=== PATIENT | female | born 1960 | race Caucasian/White ===

== ENCOUNTER → 2016-06-21 | Outpatient (CLI) | payer BC ==
[~2016-06-21] MED LIST: ALPR1 PO; ASPI1TAB69 PO; ASPI325T PO; AUGM500T7 PO; CENTCHW4 CHEW; CYCL5TAB PO; DULO1CAP2 PO; FURO1TAB62 PO; HYDR-3535 PO; IBUP600T26 PO; MACR100C2 PO; MULT-120 PO; NYST10007 TOPICAL; OXYC1TAB63 PO; OXYGENDME NAS.CANULA; PERC5TAB12 PO; TAB-TAB PO; XANA1TAB2 PO
--- NOTE | 2016-06-21 14:09 | RADRPT ---
EXAM DATE/TIME: 06/21/2016 13:13 [facility] COMPARISON: CHEST SINGLE AP, June 01, 2013, 19:59. INDICATIONS : Evaluate for pneumonia, pneumothorax or communicable disease. Pre op for hysterectomy. MEDICAL HISTORY : Chronic obstructive pulmonary disease. SURGICAL HISTORY : None. ENCOUNTER: Initial ACUITY: 1 day PAIN SCORE: 0/10 LOCATION: Bilateral chest FINDINGS: The heart is normal in size. There are chronic-appearing interstitial changes throughout the pulmonar y parenchyma. These are stable compared to previous dated 06/01/13. The visualized bony structures are intact. CONCLUSION: Chronic appearing interstitial changes. No acute abnormality. Lennox Leon MD on June 21, 2016 at 14:06 Board Certified Radiologist. This report was verified electronically.
--- NOTE | 2016-06-22 13:37 | EKG ---
Date Performed: 06/21/2016 Time Performed: 12:56:54 PTAGE: 55 years EKG: Sinus rhythm NORMAL ECG Compared to prior tracing no significant change DOCTOR: Carlo Castillo Interpretating Date/Time 06/22/2016 13:36:03
== END ==
LOC: CPRE 12:07
PROVIDERS: ATTEND Obstetrics & Gynecology
DX: Z01.810 Encounter for preprocedural cardiovascular examination (principal); Z01.811 Encounter for preprocedural respiratory examination; N81.89 Other female genital prolapse
CPT/HCPCS: 71020; 93005

== ENCOUNTER 2016-06-24 07:28 | Observation (INO) | payer BC ==
--- NOTE | 2016-06-21 14:11 | MH ---
cc: ARIELA RIDER,SAM Alvarez D.O. 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 HISTORY OF PRESENT ILLNESS The patient is a pleasant 55-year-old single white female whom I met approximately 2 weeks ago. She had been a prior patient of the practice. She knew that she had uterine prolapse, but was trying to live with it and continue work on a regular basis. She is 3, para 2, did not deliver large babies but she is a smoker. She is thin, she is fair and does work with heavy lifting. She is a patient of Dr. Castellon. With her back pain she has had MRIs of the spine, pelvis and abdomen. She has been given Lortab by Dr. Castellon. Most of the time she can void completely unless the procidentia is so profound she has to lay down. Her pain is actually at the mons and then runs down her thigh mostly on the right. It started a week ago, got worse with movement and she cannot bend down. Initially I put in a Gellhorn pessary to see if elevation of the uterine procidentia would help with that pain. It greatly increases her comfort without having the uterus hanging out and she can empty her bowels and bladder completely, but she still states that this pain on the right side is still there. I am concerned that she has significant osteoporosis and some pelvic sacrum instability and that her whole pelvic girdle is shifting. I have explained to her that removal of this uterus may not help that pain directly but it is certainly needed in any event. On exam when she is lying down the uterus is entirely outside the body, the cervix and lower uterine segment is cornified, the cervical os is distorted. There is no bleeding. She has had no abnormal Pap smears. Ovaries are not palpable in this circumstance. The bladder comes down considerably and so does the rectum. PAST MEDICAL HISTORY Her other medical conditions are hyperlipidemia and she takes atorvastatin 10 mg a day and she takes hydrocodone 10 mg I believe four times a day and she takes oxycodone 5 mg for breakthrough pain. She has tried tramadol, diclofenac and she does take alprazolam for anxiety. She continues to smoke. FAMILY HISTORY/SOCIAL HISTORY Her family history is essentially noncontributory. She is but has a partner of 15 years. She has occasional caffeine, occasional exercise, her diet is regular. She smokes half-a-pack a day. Her mother had breast cancer and disease of the thyroid. Her father had heart disease. She has never had any STDs that she is aware of. She has had frequent urinary tract infections. REVIEW OF SYSTEMS Otherwise negative. DATA Ultrasound is consistent with the above findings. PHYSICAL EXAMINATION GENERAL: On exam, she is a slim female with dark-lay skin, poor skin turgor, who appears anxious. NECK: She has no thyroid enlargement. LUNGS: Her lungs were clear to auscultation in all guevara. HEART: Her heart rate and rhythm are regular. BREAST: Exam was done not performed. ABDOMEN: Her abdomen is scaphoid. She has no hepatosplenomegaly. No CVA tenderness. No lymphadenopathy and no hernias. She has no CVA tenderness. No tenderness at the sciatic notch. Perineum reveals the uterine procidentia. This was reduced with some difficulty. Her bladder was emptied and a size 3 Gellhorn placed with good positioning. I did not feel ovaries. The bladder has a positive Q-tip test obviously with the urethrovesical angle descending also. The rectocele is moderate and there was no stool in the vault. Her guaiac was negative and she had no hemorrhoids. EXTREMITIES: She had a positive straight leg test on the right. There was no swelling. She had normal deep tendon reflexes and normal pedal pulses. VITAL SIGNS: Her weight is 140 and her blood pressure is 118/78. ALLERGIES She has no allergies. IMPRESSION At this time, this is a young woman, early menopause with uterine procidentia, who at this point would benefit from a TVH, BSO, AP repair and TOT with Solyx. She understands that this may not entirely control her pain which may be some type of pelvic girdle instability but is necessary nonetheless. She is scheduled for and we will follow-up based on her results as needed. MD CINDI Kwan/TLL /1:04 PM /1:40 PM
[~2016-06-24] VITALS: Ht 162.6 cm; Wt 65.0 kg
[~2016-06-24 07:28] MED LIST changes: -ALPR1 PO; -ASPI325T PO; -AUGM500T7 PO; -CENTCHW4 CHEW; -CYCL5TAB PO; -DULO1CAP2 PO; -FURO1TAB62 PO; -IBUP600T26 PO; -MACR100C2 PO; -NYST10007 TOPICAL; -OXYC1TAB63 PO; -OXYGENDME NAS.CANULA; -TAB-TAB PO
[2016-06-24] MEDS ORDERED: METOPROLOL TARTRATE 25 MG TAB PO PRN (08:00)
[2016-06-24] MEDS ORDERED: INSULIN HUMAN REGULAR 1,000 UNITS/10 ML VIAL SQ PRN (08:00)
[2016-06-24] MEDS ORDERED: SODIUM CHLORID 0.9% 500 ML IV PRN (08:00)
[2016-06-24] MEDS ORDERED: LACTATED RINGER'S 1000 ML IV PRN (08:00)
[2016-06-24] MEDS ORDERED: CHLORHEXIDINE GLUCONATE 2 % 1 PACK (2 CLOTHS) TOPICAL PRN (08:00)
[2016-06-24] MEDS ORDERED: POVIDONE IODINE 5% (ANTISEPSIS KIT) 4 APPLICATIONS EACH NARE PRN (08:00)
[2016-06-24] MEDS ORDERED: ceFAZolin INJ 1,000 MG VIAL ONE (08:21)
[2016-06-24] MEDS ORDERED: SODIUM CHLORIDE 0.9% INJ 100 ML ONE (08:22)
[2016-06-24 08:26] VITALS: BP 106/68; PULSE 72; RESP 20; TEMP 97.6; O2SAT 96
[2016-06-24] MEDS ORDERED: BUPIVACAINE/EPINEPHRINE 0.5% PF 10 ML VIAL ONE (09:11)
[2016-06-24] MEDS ORDERED: BUPIVACAINE/EPINEPHRINE 0.25% 50 ML VIAL ONE (09:11)
[2016-06-24] MEDS ORDERED: ESTROGENS CONJUGATED VAG CREA 15 APPL/30 GM TUBE ONE (09:11)
[2016-06-24] MEDS ORDERED: VASOPRESSIN INJ 20 UNITS/ML VIAL ONE (09:11)
[2016-06-24] MEDS ORDERED: ACETAMINOPHEN 1000 MG/100 ML VIAL IV ONE (09:33)
[2016-06-24] MEDS ORDERED: FAMOTIDINE 20 MG/2 ML VIAL ONE (09:33)
[2016-06-24] MEDS ORDERED: MIDAZOLAM HCL 2 MG/2 ML VIAL ONE (09:34)
[2016-06-24] MEDS ORDERED: DEXAMETHASONE SOD PHOS 4 MG/ML VIAL ONE (09:34)
[2016-06-24] MEDS ORDERED: LACTATED RINGER'S 1000 ML INJ 1,000 ML IV ONE (09:40)
[2016-06-24] MEDS ORDERED: NEOSTIGMINE 3 MG/3 ML SYR IV ONE (09:40)
[2016-06-24] MEDS ORDERED: ONDANSETRON HCL 4 MG/2 ML VIAL IV PUSH ONE (09:40)
[2016-06-24] MEDS ORDERED: PROPOFOL 200 MG/20 ML AMP IV ONE (09:40)
--- NOTE | 2016-06-24 11:56 | PD.OP ---
Operative Report Date of Surgery: June 24, 2016 Preoperative Diagnosis: uterine procidentia cystourethrocele mild rectocele Postoperative Diagnosis: same, enterocele Procedure: TVHBSO anterior repair TOT with solyx enterocele obliteration cystoscopy Anesthesia: GET Surgeon: Isabelle Faust Manager [employer]iances(s): [email or web address] Operation and Findings: Isabelle Pollard MD June 24, 2016 11:56
--- NOTE | 2016-06-24 11:59 | HHI.DCPOC ---
Discharge Care Plan Report Symptoms to Your Doctor -Temperate above 100.5 degrees -Redness, of incision or excessive or foul smelling drainage -Unusual pain or calf pain -Increased vaginal bleeding -Painful or difficulty urinating -Feelings of extreme sadness or anxiety after 2 weeks Goals to Promote Your Health * To prevent worsening of your condition and complications * To maintain your health at the optimal level Directions to Meet Your Goals Take your medications as prescribed Follow your dietary instruction Follow activity as directed Ensure plenty of rest for recovery Drink fluids for hydration Keep your appointments as scheduled Take your immunizations and boosters as scheduled If your symptoms worsen call your PCP, if no PCP go to Urgent Care Center or Emergency Room Smoking is Dangerous to Your Health. Avoid second hand smoke Call the 24-hour crisis hotline for domestic abuse at Isabelle Faust MD June 24, 2016 11:59
[2016-06-24] MEDS ORDERED: SODIUM CHLORIDE 0.9% FLUSH 10 ML FLUSH IV FLUSH PRN (12:00)
[2016-06-24] MEDS ORDERED: ONDANSETRON HCL 4 MG/2 ML VIAL IVP PRN (12:00)
[2016-06-24] MEDS ORDERED: ZOLPIDEM TARTRATE 5 MG TAB PO PRN (12:00)
[2016-06-24] MEDS ORDERED: oxyCODONE/ACETAMINOPHEN 5 MG/325 MG TAB PO PRN (12:00)
[2016-06-24] MEDS ORDERED: *morphine SULFATE 8 MG/ML PERIprocedure ONLY ONE (12:14)
[2016-06-24] MEDS: LACTATED RINGER'S 1000 ML INJ 1,000 ML IV SCH ×2 (12:30→21:17)
[2016-06-24] MEDS ORDERED: fentaNYL CITRATE 250 MCG/5 ML AMP ONE (12:35)
[2016-06-24] MEDS ORDERED: DO NOT ADM ANY ANTICOAGULANT DRUGS PRN (13:00)
[2016-06-24] MEDS: KETOROLAC TROMETHAMINE 30 MG/ML (IVP) VIAL IVP PRN (13:23)
[2016-06-24] MEDS: HYDROmorphone HCL PF 1 MG/ML VIAL IVP PRN ×3 (13:26→21:18)
[2016-06-24] MEDS: oxyCODONE/ACETAMINOPHEN 5 MG/325 MG TAB PO PRN ×2 (14:40→19:48)
[2016-06-24 16:11] VITALS: BP 112/69; PULSE 61; RESP 17; TEMP 97.8
[2016-06-24] MEDS ORDERED: ALPRAZolam 1 MG TAB PO ONE (16:45)
[2016-06-24] MEDS: NICOTINE 21 MG/24 HR PATCH T-DERMAL SCH (17:15)
--- NOTE | 2016-06-24 18:18 | HHI.PR ---
Subjective Remarks Doing well, pain is well controlled, eating well. Objective Vital Signs Vital Signs Date Time Temp Pulse Resp B/P Pulse Ox O2 Delivery O2 Flow Rate FiO2 06/24/16 16:11 97.8 61 17 112/69 06/24/16 15:40 97.8 70 109/58 95 Room Air 06/24/16 14:30 97.8 80 16 108/65 99 Nasal Cannula 2 06/24/16 14:00 66 16 118/59 97 Nasal Cannula 2 06/24/16 13:30 80 16 119/63 98 Nasal Cannula 2 06/24/16 13:00 68 16 117/59 97 Nasal Cannula 2 06/24/16 12:45 70 16 112/56 96 Nasal Cannula 2 06/24/16 12:30 66 16 110/55 96 Nasal Cannula 2 06/24/16 12:15 70 16 132/60 96 Nasal Cannula 2 06/24/16 12:00 98.3 74 16 128/58 97 Nasal Cannula 2 06/24/16 08:26 97.6 72 20 106/68 96 I/O 06/23/16 06/23/16 06/23/16 06/24/16 06/24/16 06/24/16 07:00 15:00 23:00 07:00 15:00 23:00 Intake Total 50 ml 100 ml Output Total 125 ml 200 ml Balance -75 ml -100 ml Intake IV Total 50 ml 100 ml Output Urine Total 125 ml 200 ml Objective Remarks Chest is clear, regular rate and rhythm. Abdomen is soft and non-distended. no CVAT urine clear perineum-pad has light to moderate blood Ext no CCE. A/P Assessment and Plan Night of surgery Doing well Home tomorrow after voiding triall scripts for percocet and macrobid RTO 2 weeks (if goes home with arroyo have return tuesday to office and ozzie will do voiding trial.). Isabelle Faust MD June 24, 2016 18:18
[2016-06-24] MEDS ORDERED: OXYC1TAB63 PO (18:19)
[2016-06-24] MEDS ORDERED: MACR100C2 PO (18:20)
[2016-06-24 19:52] VITALS: BP 96/59; PULSE 56; RESP 16; TEMP 97.8; O2SAT 98
[2016-06-24] MEDS ORDERED: REMOVE OLD NICODERM (NICOTINE) PATCH T-DERMAL SCH (21:00)
[2016-06-24] MEDS ORDERED: SODIUM CHLORIDE 0.9% FLUSH 10 ML FLUSH IV FLUSH SCH (21:00)
[2016-06-24] MEDS: ALPRAZolam 1 MG TAB PO SCH (21:10)
[2016-06-24] MEDS: DOCUSATE SODIUM 100 MG CAP PO SCH (21:10)
[2016-06-25 00:24] VITALS: BP 104/58; PULSE 75; RESP 20; TEMP 97.8; O2SAT 95
[2016-06-25] MEDS: oxyCODONE/ACETAMINOPHEN 5 MG/325 MG TAB PO PRN ×3 (00:26→08:56)
[2016-06-25] MEDS: HYDROmorphone HCL PF 1 MG/ML VIAL IVP PRN (04:10)
[2016-06-25 04:17] VITALS: BP 120/73; PULSE 68; RESP 18; TEMP 98.3; O2SAT 96
[2016-06-25 05:23] LABS: AUTOMATED NEUTROPHIL # 15.2 TH/MM3 (1.8-7.7); BASOPHIL % 0.2 % (0.0-2.0); EOSINOPHIL # 0.1 TH/MM3 (0-0.4); EOSINOPHIL % 0.6 % (0.0-4.0); HEMATOCRIT 34.1 % (35.0-46.0); HEMO FLAGS DIFF FINAL; LYMPH % 14.7 % (9.0-44.0); LYMPHOCYTE # 2.9 TH/MM3 (1.0-4.8); MEAN CELL VOLUME 90.8 FL (80.0-100.0); MEAN CORPUSCULAR HEMOGLOBIN 29.4 PG (27.0-34.0); MEAN CORPUSCULAR HGB CONC 32.4 % (32.0-36.0); MONO % 6.5 % (0.0-8.0); PLATELET COUNT 292 TH/MM3 (150-450); RED BLOOD COUNT 3.76 MIL/MM3 (4.00-5.30); WHITE BLOOD COUNT 19.5 TH/MM3 (4.0-11.0)
[2016-06-25 05:38] LABS: BICARBONATE 28.9 MEQ/L (21.0-32.0); POTASSIUM 3.9 MEQ/L (3.5-5.1)
[2016-06-25] MEDS: LACTATED RINGER'S 1000 ML INJ 1,000 ML IV SCH (06:35)
[2016-06-25] MEDS: KETOROLAC TROMETHAMINE 30 MG/ML (IVP) VIAL IVP PRN (06:57)
[2016-06-25 07:35] VITALS: BP 115/67; PULSE 74; RESP 16; TEMP 98
--- NOTE | 2016-06-25 08:02 | MP ---
cc: ISABELLE RIDER DATE OF SURGERY 06/24/2016 DATE OF 1960 PREOPERATIVE DIAGNOSIS Uterine procidentia, cystourethrocele, enterocele and small rectocele. POSTOPERATIVE DIAGNOSIS Uterine procidentia, cystourethrocele, enterocele and small rectocele. PROCEDURE Total vaginal hysterectomy, bilateral salpingo-oophorectomy, enterocele obliteration via Moschcowitz repair, transobturator tape with Solyx, cystourethroscopy and then anterior repair with Elizabeth plication. ANESTHESIA General endotracheal SURGEON Isabelle Rider MD HOSPITALITY INTERN Cook FINDINGS The patient came to the OR with a Gelhorn in place that had been placed 10 days prior so that the patient would not be in full retention. I met her with her uterine procidentia and inability to void so that the Gelhorn was temporizing. When the Gelhorn was removed, the bladder and the uterus were up in the vagina, but could be grasped and pulled entirely out. The tissue otherwise was healthy and a vaginal hysterectomy was unremarkable. The ovaries were tiny in easily removed. The enterocele was obliterated with a pursestring and then a dissection was done to place the Solyx in place. After that, a cystourethroscopy revealed a normal bladder anatomy, no iatrogenic injury and good flow from both of the ureteral orifices. ESTIMATED BLOOD LOSS 100 cc. COUNTS Sponge, instrument and needle counts were correct. CONDITION She tolerated the procedure well. PROCEDURE The patient was identified as Margaret Calderón, permit was reviewed with her, she was taken to the operating room, placed under general endotracheal anesthesia in the dorsal lithotomy position. She was prepped and draped in the usual sterile fashion. She had sequential stockings on and a Andrade was placed after she was prepped. She had received one gram Ancef IV. A time-out was performed with all in attendance. The cervix was grasped gently and infiltrated with Marcaine with epinephrine and circumcised with the Bovie on cutting. The anterior and posterior cul-de-sacs were entered sharply and then the uterosacral on each side was transected, clamped, cut and ligated and foreshortened. Then successive pedicles were clamped, cut and sutured until the tubo-ovarian ligament was reached on either side and the uterus removed from the field. Ekron's were then used to identify the tubes and ovaries which were grasped with the curved Good clamp, excised and then a free tie and suture ligature was placed on each infundibulopelvic ligament. The area was assessed for bleeding. The enterocele repair was done with a pursestring using Vicryl and then the uterosacrals were plicated. After that, then the vaginal vault was closed in a horizontal fashion, nine to three. Then attention was directed toward the urethra and 1 cm below the urethra down to the lower near the horizontal closure, the Bovie was used to incise the mucosa after infiltration with Marcaine with epinephrine and the vaginal mucosa was dissected off the bladder and the urethra and underneath the pubic rami on either side was undermined to allow placement of the Solyx tape. Once this was placed, the Andrade was removed and then 30 degree cystoscope was placed in the bladder with the findings as noted above. It was removed and the Andrade replaced. The bladder was plicated with a chromic and then mattress sutures were placed with Vicryl and then the mucosa was trimmed and closed in a running fashion. The rectocele was present and was minimal and to avoid suture lines in contact with each other, repair of this was not performed and not felt indicated. The vagina was filled with Estrace vaginal cream. Sponge, instrument, needle counts correct. She tolerated the procedure well. She went to the recovery room stable. MD CINDI Kwan/WARNER /12:04 PM /7:48 AM
[2016-06-25] MEDS: DOCUSATE SODIUM 100 MG CAP PO SCH (08:55)
[2016-06-25] MEDS: ALPRAZolam 1 MG TAB PO SCH (08:55)
[2016-06-25] MEDS: NICOTINE 21 MG/24 HR PATCH T-DERMAL SCH (08:56)
--- NOTE | 2016-06-25 09:13 | HHI.PR ---
Subjective Remarks Doing well, pain is well controlled, eating well. Objective Vital Signs Vital Signs Date Time Temp Pulse Resp B/P Pulse Ox O2 Delivery O2 Flow Rate FiO2 06/25/16 07:35 98.0 74 16 115/67 06/25/16 05:22 18 06/25/16 04:40 18 06/25/16 04:17 98.3 68 18 120/73 96 06/25/16 00:24 97.8 75 20 104/58 95 06/24/16 19:52 97.8 56 16 96/59 98 06/24/16 16:11 97.8 61 17 112/69 06/24/16 15:40 97.8 70 109/58 95 Room Air 06/24/16 14:30 97.8 80 16 108/65 99 Nasal Cannula 2 06/24/16 14:00 66 16 118/59 97 Nasal Cannula 2 06/24/16 13:30 80 16 119/63 98 Nasal Cannula 2 06/24/16 13:00 68 16 117/59 97 Nasal Cannula 2 06/24/16 12:45 70 16 112/56 96 Nasal Cannula 2 06/24/16 12:30 66 16 110/55 96 Nasal Cannula 2 06/24/16 12:15 70 16 132/60 96 Nasal Cannula 2 06/24/16 12:00 98.3 74 16 128/58 97 Nasal Cannula 2 I/O 06/24/16 06/24/16 06/24/16 06/25/16 06/25/16 06/25/16 07:00 15:00 23:00 07:00 15:00 23:00 Intake Total 50 ml 100 ml Output Total 125 ml 400 ml 1900 ml 300 ml Balance -75 ml -300 ml -1900 ml -300 ml Intake IV Total 50 ml 100 ml Output Urine Total 125 ml 400 ml 1900 ml 300 ml Result Diagram: 06/25/16 0414 06/25/16 0414 Objective Remarks Chest is clear, regular rate and rhythm. Abdomen is soft and non-distended. no CVAT arroyo out, passed voiding tril perineum-pad has light spotting Ext no CCE. A/P Assessment and Plan POD 1 s/p tvh with bso, Ant repaired, tot passed voiding trial this am scripts for percocet and macrobid RTO 2 weeks to see Kiki Ruiz MD June 25, 2016 09:13
== END 2016-06-25 10:59 | disposition home or self-care (01) ==
LOC: HSDC 07:28 → HSDI 11:54 → H1EA 15:48
PROVIDERS: ADMIT Obstetrics & Gynecology; ATTEND Obstetrics & Gynecology
DX: N81.3 Complete uterovaginal prolapse (principal); N39.3 Stress incontinence (female) (male); R33.9 Retention of urine, unspecified; N80.0 Endometriosis of uterus; N87.9 Dysplasia of cervix uteri, unspecified; E78.5 Hyperlipidemia, unspecified; F17.200 Nicotine dependence, unspecified, uncomplicated; Z79.899 Other long term (current) drug therapy; Z80.3 Family history of malignant neoplasm of breast; Z87.440 Personal history of urinary (tract) infections; Z82.49 Family history of ischemic heart disease and other diseases of the circulatory system
CPT/HCPCS: 00860; 57288; 58263; 80048; 85025; 86850; 86900; 86901; 88307; C1771; G0378; J0131; J0690; J1100; J1170; J1885; J2250; J2270; J2405; J2710; J3010; J7120

== ENCOUNTER 2016-07-09 08:28 | Inpatient (IN) | payer BC ==
[2016-07-09] VITALS (14 sets, daily range): BP systolic 92–129; BP diastolic 52–73; PULSE 72–128; RESP 16–28; TEMP 97.6–103; O2SAT 78–96
[~2016-07-09] VITALS: Ht 167.6 cm; Wt 63.3 kg
[~2016-07-09 08:28] MED LIST changes: +MACR100C2 PO; +OXYC1TAB63 PO
[2016-07-09] MEDS ORDERED: RESP: ALBUTEROL 2.5 MG/IPRATROPIUM 0.5 MG NEB (SCH) ONE (08:39)
[2016-07-09] MEDS ORDERED: SODIUM CHLOR 0.9% 1000 ML INJ 1,000 ML IV ONE ×3 (08:45→15:00)
[2016-07-09] MEDS ORDERED: PIPERACIL-TAZO 3.375 GM PREMIX 50 ML IV ONE (08:45)
[2016-07-09] MEDS ORDERED: ACETAMINOPHEN 325 MG TAB PO ONE (08:45)
[2016-07-09] MEDS ORDERED: IBUPROFEN 600 MG TAB PO ONE (08:45)
[2016-07-09] MEDS: RESP: ALBUTEROL 2.5 MG/IPRATROPIUM 0.5 MG NEB (SCH) INH ×5 (08:46→20:10)
--- NOTE | 2016-07-09 08:46 | PD ---
HPI Chief Complaint: Fever Time Seen by Provider: 08:36 Travel History International Travel<30 days: No Contact w/Intl Traveler<30days: No Traveled to known affect area: No History of Present Illness HPI The patient was seen and examined in the presence of the nurse. This patient arrives critically ill. She is short of breath and has productive cough with clear colored phlegm. She has a temperature of 103. She is a cigarette smoker but denies history of COPD. She has a room air saturation of 79% with a good waveform. She is tachycardic in the 120s and looks distressed. Duration 4 days. Symptoms are severe. No alleviating factors. Patient reports having a hysterectomy 2 weeks ago but has no vaginal discharge or bleeding or significant pelvic pain. PFSH Past Medical History Asthma: No Blood Disorders: No Anxiety: Yes (ON XANAX) Depression: No Heart Rhythm Problems: No Cancer: No Cardiovascular Problems: No High Cholesterol: Yes Chest Pain: No Congestive Heart Failure: No COPD: Yes Cerebrovascular Accident: Yes Diabetes: No Diminished Hearing: No Endocrine: Yes Gastrointestinal Disorders: No Genitourinary: Yes (hx uti's ) Headaches: Yes Hepatitis: No Hiatal Hernia: No Immune Disorder: No Implanted Vascular Access Dvce: No Medical other: No Musculoskeletal: Yes (RIGHT SCIATIC NERVE PAIN, OSTEOPORESIS) Neurologic: Yes (MIGRAINES/HEADACHES, TIA 4 YRS AGO) Psychiatric: Yes (ANXIETY) Reproductive: No Respiratory: Yes (COPD) Migraines: Yes Sleep Apnea: No Thyroid Disease: Yes (GOITER) ?: Not : 3 Para: 2 Miscarriage: 1 : 0 Dilation and Curettage (D&C): Yes Past Surgical History Abdominal Surgery: No AICD: No Body Medical Devices: NONE Cardiac Surgery: No Ear Surgery: No Endocrine Surgery: No Eye Surgery: No Genitourinary Surgery: No Gynecologic Surgery: Yes (TL) Hysterectomy: Yes (06/24/16) Joint Replacement: No Oral Surgery: Yes (wisdom teeth pulled under sedation) Pacemaker: No Thoracic Surgery: No Other Surgery: Yes Social History Alcohol Use: No Tobacco Use: Yes (<1PPD) Substance Use: No Allergies-Medications (Allergen,Severity, Reaction): Coded Allergies: No Known Allergies (Unverified , 06/24/16) Reported Meds & Prescriptions Reported Meds & Active Scripts Active Reported Centrum (Multiple Vitamins W/ Minerals) 1 Chew 1 Tab CHEW DAILY Lortab (Hydrocodone-Acetaminophen) 10-325 Mg Tab 1 Tab PO Q8HR PRN Xanax (Alprazolam) 1 Mg Tab 1 Mg PO BID Review of Systems General / Constitutional: Positive: Fever, Chills Eyes: No: Visual changes HENT: No: Headaches Cardiovascular: Positive: Tachycardia, No: Chest Pain or Discomfort Respiratory: Positive: Cough, Shortness of Breath, Wheezing Gastrointestinal: No: Abdominal Pain Genitourinary: No: Dysuria Musculoskeletal: No: Pain Skin: No Rash Neurologic: No: Weakness Psychiatric: No: Depression Endocrine: No: Polydipsia Hematologic/Lymphatic: No: Easy Bruising Physical Exam Narrative GENERAL: Short of breath febrile and tachycardic lady who looks distressed. SKIN: Focused skin assessment reveals no rash and nodules. Skin is Warm and dry. HEAD: Atraumatic. Normocephalic. EYES: Pupils equal and round. No scleral icterus. No injection or drainage. ENT: No nasal bleeding or discharge. Mucous membranes pink and moist. NECK: Trachea midline. No JVD. CARDIOVASCULAR: Regular rate and rhythm. No murmur appreciated. Tachycardic 125 RESPIRATORY: Positive accessory muscle use. Diffuse rhonchorous with occasional wheeze. Breath sounds equal bilaterally. GASTROINTESTINAL: Abdomen soft, non-tender, nondistended. Hepatic and splenic margins not palpable. MUSCULOSKELETAL: No obvious deformities. No clubbing. No cyanosis. No edema. NEUROLOGICAL: Awake and alert. No obvious cranial nerve deficits. Motor grossly within normal limits. Normal speech. PSYCHIATRIC: Appropriate mood and affect; insight and judgment normal. Pelvic: Speculum exam was done and there is no dehiscence of the vaginal vault. Sutures are visible. No tenderness or discharge in the vault Data Data Last Documented VS Vital Signs Date Time Temp Pulse Resp B/P Pulse Ox O2 Delivery O2 Flow Rate FiO2 07/09/16 10:00 100.9 105 18 94/54 93 Venturi Mask 50 07/09/16 09:00 8 Orders Complete Blood Count With Diff (07/09/16 08:37) Basic Metabolic Panel (Bmp) (07/09/16 08:37) Urinalysis - C+S If Indicated (07/09/16 08:37) Iv Access Insert/Monitor (07/09/16 08:37) Ecg Monitoring (07/09/16 08:37) Oximetry (07/09/16 08:37) Oxygen Administration (07/09/16 08:37) Chest, Single Ap (07/09/16 08:37) Sodium Chloride 0.9% Flush (Ns Flush) (07/09/16 08:45) Albuterol-Ipratropium Neb (Duoneb Neb) (07/09/16 08:45) Sodium Chlor 0.9% 1000 Ml Inj (Ns 1000 M (07/09/16 08:45) Piperacil-Tazo 3.375 Gm Premix (Zosyn 3. (07/09/16 08:45) Albuterol-Ipratropium Neb (Duoneb Neb) (07/09/16 08:39) Blood Culture (07/09/16 08:39) Acetaminophen (Tylenol) (07/09/16 08:45) Ibuprofen (Motrin) (07/09/16 08:45) Lactic Acid (07/09/16 08:46) Sodium Chlor 0.9% 1000 Ml Inj (Ns 1000 M (07/09/16 09:00) Urine Culture (07/09/16 09:40) Methylprednisolone So Succ Inj (Solumedr (07/09/16 10:15) Ct Thorax/ Chest Wo Iv Contras (07/09/16 ) Labs Laboratory Tests Test 07/09/16 07/09/16 08:35 09:40 White Blood Count 15.6 TH/MM3 Red Blood Count 3.91 MIL/MM3 Hemoglobin 11.8 GM/DL Hematocrit 34.8 % Mean Corpuscular Volume 89.1 FL Mean Corpuscular Hemoglobin 30.1 PG Mean Corpuscular Hemoglobin 33.8 % Concent Red Cell Distribution Width 14.1 % Platelet Count 375 TH/MM3 Mean Platelet Volume 7.7 FL Neutrophils (%) (Auto) 96.0 % Lymphocytes (%) (Auto) 2.0 % Monocytes (%) (Auto) 1.0 % Eosinophils (%) (Auto) 0.9 % Basophils (%) (Auto) 0.1 % Neutrophils # (Auto) 15.0 TH/MM3 Lymphocytes # (Auto) 0.3 TH/MM3 Monocytes # (Auto) 0.2 TH/MM3 Eosinophils # (Auto) 0.1 TH/MM3 Basophils # (Auto) 0.0 TH/MM3 CBC Comment DIFF FINAL Differential Comment Sodium Level 136 MEQ/L Potassium Level 3.5 MEQ/L Chloride Level 101 MEQ/L Carbon Dioxide Level 24.9 MEQ/L Anion Gap 10 MEQ/L Blood Urea Nitrogen 25 MG/DL Creatinine 0.96 MG/DL Estimat Glomerular Filtration 60 ML/MIN Rate Random Glucose 154 MG/DL Lactic Acid Level 1.9 mmol/L Calcium Level 8.9 MG/DL Urine Color YELLOW Urine Turbidity HAZY Urine pH 5.5 Urine Specific [place] 1.015 Urine Protein 30 mg/dL Urine Glucose (UA) NEG mg/dL Urine Ketones NEG mg/dL Urine Occult Blood LARGE Urine Nitrite NEG Urine Bilirubin NEG Urine Urobilinogen LESS THAN 2.0 MG/DL Urine Leukocyte Esterase MOD Urine RBC 38 /hpf Urine WBC 4 /hpf Urine WBC Clumps OCC Urine Squamous Epithelial 1 /hpf Cells Urine Amorphous Sediment RARE Urine Bacteria MOD /hpf Urine Hyaline Casts 2 /lpf Urine Mucus FEW /lpf Microscopic Urinalysis Comment CULTURE INDICATED MDM Medical Decision Making Medical Screen Exam Complete: Yes Emergency Medical Condition: Yes Medical Record Reviewed: Yes Differential Diagnosis Pneumonia, sepsis, septic shock Narrative Course I have reviewed the patient's electronic medical record. 2 IVs placed Blood cultures obtained followed by IV Zosyn given I gave her Tylenol and Motrin for fever I gave the patient 2 L normal saline IV bolus CBC shows leukocytosis of 15,000 Metabolic profile is reasonably normal Lactate is 1.9 I reviewed her chest x-ray which is negative for large consolidation I gave her series of 3 nebulizer treatments I initially gave her a nonrebreather because she was still in the mid 80s on nasal cannula I gave her IV Solu-Medrol On reassessment she is somewhat improved but still critically ill needing intensive care support I'm sure she has some degree of COPD exacerbation I did not suspect PE given her high fever and prominent cough I reviewed with lung puller Dr. Wisdom who will admit At this time patient is on a 50% mask with saturation of 92% Systolic blood pressure is 95 after 2 L Critical Care Narrative Aggregate critical care time was 80 minutes. Time to perform other separately billable procedures was not included in the critical care time. My time did not include minutes spent treating any other patients simultaneously or on activities that did not directly contribute to the patient's treatment. The services I provided to this patient were to treat and/or prevent clinically significant deterioration that could result in: Cardiopulmonary arrest, hypoxemic brain injury, respiratory failure I provided critical care services requiring my management, as noted below: Chart data review, documentation time, medication orders and management, vital sign assessments/reviewing monitor data, ordering and reviewing lab tests, ordering and interpreting/reviewing x-rays and diagnostic studies, care of the patient and discussion of the patient with the admitting physicians. Diagnosis Primary Impression: Acute respiratory failure with hypoxia Additional Impressions: COPD exacerbation Bronchitis Admitting Information Admitting Physician Requests: it Florin Garay MD Jul 09, 2016 08:46
[2016-07-09 09:07] LABS: BASOPHIL % 0.1 % (0.0-2.0); EOSINOPHIL # 0.1 TH/MM3 (0-0.4); EOSINOPHIL % 0.9 % (0.0-4.0); HEMATOCRIT 34.8 % (35.0-46.0); HEMO FLAGS DIFF FINAL; LYMPHOCYTE # 0.3 TH/MM3 (1.0-4.8); MEAN CELL VOLUME 89.1 FL (80.0-100.0); MEAN CORPUSCULAR HEMOGLOBIN 30.1 PG (27.0-34.0); MEAN CORPUSCULAR HGB CONC 33.8 % (32.0-36.0); PLATELET COUNT 375 TH/MM3 (150-450); RED BLOOD COUNT 3.91 MIL/MM3 (4.00-5.30); RED CELL DISTRIBUTION WIDTH 14.1 % (11.6-17.2); WHITE BLOOD COUNT 15.6 TH/MM3 (4.0-11.0)
[2016-07-09 09:11] LABS: BICARBONATE 24.9 MEQ/L (21.0-32.0); POTASSIUM 3.5 MEQ/L (3.5-5.1)
--- NOTE | 2016-07-09 09:12 | RADRPT ---
EXAM DATE/TIME: 07/09/2016 08:48 [facility] COMPARISON: CHEST SINGLE AP, June 01, 2013, 19:59. INDICATIONS : Patient has had productive cough and short of breath for three weeks. Constipation for three days. Prabhakar holman is a smoker. MEDICAL HISTORY : Chronic obstructive pulmonary disease. SURGICAL HISTORY : None. ENCOUNTER: Initial ACUITY: 3 weeks PAIN SCORE: 0/10 LOCATION: Bilateral chest FINDINGS: Single AP view of the chest. The lungs are clear. Cardiomediastinal silhouette within normal limits. No evidence of pleural effusion or pneumothorax. CONCLUSION: No acute cardiopulmonary disease identified. Tomas Clrak MD on July 09, 2016 at 9:09 Board Certified Radiologist. This report was verified electronically.
[2016-07-09] MEDS ORDERED: CENTCHW4 CHEW (09:48)
[2016-07-09 10:04] LABS: BACTERIA, URINE MOD /hpf; BLOOD, URINE LARGE (NEG); COMMENT (UR) CULTURE INDICATED; CULTURE IF INDICATED CULTURE INDICATED; GLUCOSE,URINE NEG (NEG); HYALINE CAST, URINE 2 /lpf (RARE); KETONE, URINE NEG (NEG); MUCUS URINE FEW /lpf (OCC); NITRITE,URINE NEG (NEG); PH, URINE 5.5 (5.0-8.5); SQUAMOUS EPITHELIAL CELL URINE 1 /hpf (0-5); URINE COLOR YELLOW (YELLW/STRAW)
[2016-07-09] MEDS ORDERED: methylPREDNISolone SOD SUCC 125 MG/2 ML VIAL IV PUSH ONE (10:15)
[2016-07-09] MEDS ORDERED: BISACODYL 10 MG SUPP RECTAL PRN (10:45)
[2016-07-09] MEDS ORDERED: CHLORHEXIDINE GLUCONATE 2 % 1 PACK (2 CLOTHS) TOP PRN (10:45)
[2016-07-09] MEDS ORDERED: RESP: ALBUTEROL 2.5 MG/IPRATROPIUM 0.5 MG NEB (PRN) INH (10:45)
[2016-07-09] MEDS ORDERED: LACTULOSE SYRUP 20 GM/30 ML CUP PO PRN (10:45)
[2016-07-09] MEDS ORDERED: SENNOSIDES 8.6 MG TAB PO PRN (10:45)
[2016-07-09] MEDS ORDERED: ACETAMINOPHEN 325 MG TAB PO PRN (10:45)
[2016-07-09] MEDS ORDERED: MAGNESIUM HYDROXIDE SUSP 30 ML CUP PO PRN (10:45)
[2016-07-09] MEDS ORDERED: MISCELLANEOUS NURSING INFORMATION XX SCH (10:45)
[2016-07-09 10:59] LABS: BLOOD GAS BASE EXCESS -3.2 mmol/L (-2-2); BLOOD GAS CARBOXYHEMOGLOBIN 2.8 % (0-4); BLOOD GAS HCO3 21 mmol/L (22-26); BLOOD GAS METHEMOGLOBIN 0.6 % (0-2); BLOOD GAS O2 HGB SATURATION 89 % (90-100); BLOOD GAS OXYGEN CONTENT 12.8 Vol % (12.0-20.0); BLOOD GAS PCO2 38 mmHg (38-42); BLOOD GAS PO2 65 mmHG (61-120); BLOOD GAS TOTAL HGB 10.2 G/DL (12.0-16.0); TEMP CORR TO 98.6
[2016-07-09 11:00] LABS: CRITICAL VALUE YES; DRAW SITE RT RADIAL; FIO2 50 %; LITER FLOW 6 L/M; NUMBER OF ARTERIAL PUNCTURES 1; OXYGEN DEVICE Venti Mask; STAT NO; ULNAR PULSE PRESENT
[2016-07-09] MEDS: PANTOPRAZOLE SODIUM 40 MG VIAL IV SCH (11:14)
[2016-07-09] MEDS: SODIUM CHLOR 0.9% 1000 ML INJ 1,000 ML IV SCH ×4 (11:14→23:27)
[2016-07-09] MEDS ORDERED: CEFEPIME INJ 2,000 MG in SODIUM CHLORIDE 0.9% INJ 100 ML IV SCH (12:00)
--- NOTE | 2016-07-09 12:12 | RADRPT ---
EXAM DATE/TIME: 07/09/2016 11:02 [facility] COMPARISON: CHEST SINGLE AP, July 09, 2016, 8:48. INDICATIONS : Evaluate for Pneumonia / Sepsis. RADIATION DOSE: 3.68 CTDIvol (mGy) MEDICAL HISTORY : CVA, fever, coughing, abdomen pain. SURGICAL HISTORY : Hemorrhoidectomy. Hysterectomy on 06/24/16 ENCOUNTER: Initial ACUITY: 1 week PAIN SCALE: 3/10 LOCATION: Bilateral TECHNIQUE: Volumetric scanning of the chest was performed. Using automated exposure control and adjustment of t he mA and/or kV according to patient size, radiation dose was kept as low as reasonably achievable to obtain optimal diagnostic quality images. FINDINGS: LUNGS: Symmetric confluent opacities at the dependent portions of the lower lobes bilaterally. The residual diagnosis is atelectasis versus consolidation/aspiration. Mild paraseptal emphysema. Atelectasis in t he right middle lobe. 0.9 x 0.5 cm nodular density anteriorly in the right midlung abutting the minor fissure. PLEURAE: There is no pleural thickening or pleural effusion. MEDIASTINUM: Coronary artery calcifications. No enlarged lymph nodes. Heterogeneous enlarged right lobe of the thy roid. AXILLAE: Within normal limits. No lymphadenopathy. MUSCULOSKELETAL: Within normal limits for patient age. MISCELLANEOUS: The visualized upper abdominal organs demonstrate no acute abnormality. CONCLUSION: 1. Bilateral lower lobe dependent atelectasis versus consolidation indicating possible aspiration. 2. 9 x 5 mm nodular density abutting the right major fissure in the right midlung. Recommend three-mo nth followup noncontrast chest CT. Tomas Clark MD on July 09, 2016 at 11:59 Board Certified Radiologist. This report was verified electronically.
[2016-07-09] MEDS: AZITHROMYCIN INJ 500 MG in SODIUM CHLOR 0.9% 250 ML INJ 250 ML IV SCH (13:48)
--- NOTE | 2016-07-09 13:54 | HHI.HP ---
[facility] Service Critical Care Medicine Primary Care Physician Non-Staff Admission Diagnosis acute hypoxic resp failure,COPD,bronchitis Diagnosis: (1) Severe sepsis Diagnosis: Principal (2) Acute respiratory failure with hypoxia Diagnosis: Principal (3) COPD exacerbation Diagnosis: Principal (4) HCAP (healthcare-associated pneumonia) Diagnosis: Principal (5) Status post vaginal hysterectomy Diagnosis: Secondary (6) Lower abdominal pain Diagnosis: Principal (7) COPD (chronic obstructive pulmonary disease) Diagnosis: Secondary Chief Complaint: Severe sepsis HCAP Travel History International Travel<30 Days: No Contact w/Intl Traveler <30 Da: No Traveled to Known Affected Are: No Sepsis Criteria SIRS Criteria (2 or more): Temp > 100.9 or < 96.8, RR > 20 or PaCO2 < 32, WBC > 07784, < 4000 or > 10% bands Sepsis Criteria (SIRS+source): Infect source susp/known Severe Sepsis (+one): Hypotension Criteria Outcome: Meets severe sepsis criteria History of Present Illness Patient is a 55-year-old female with past medical history significant for COPD, tobacco abuse, dyslipidemia and anxiety who had undergone total vaginal hysterectomy with bso, Ant repair on 06/24/16. She was brought to the [place] ER for shortness of of breath and productive cough with clear colored phlegm. On arrival patient had temperature of 103. She has history of COPD. Initial oxygen saturation of 79%, tachycardic in the 120s. Patient reports having a hysterectomy 2 weeks ago but has no vaginal discharge or bleeding or significant pelvic pain. After establishing IV line patient had 2 L normal saline bolus and IV Zosyn. Blood cultures were sent before initiating antibiotics. WBC count 15.6 with 96% neutrophils. Chest x-ray did not show significant consolidation, however CT of the chest showed bibasilar infiltrates consistent with pneumonia. Patient received 3 DuoNeb breathing treatments and IV Solu-Medrol and was placed on nonrebreather with improvement in saturation. I evaluated the patient in the ICU. She appears critically ill. Subjectively she feels that breathing might have improved slightly. Patient do complain of lower abdominal pain now Review of Systems ROS Limitations: Other (as per HPI) Past Family Social History Allergies: Coded Allergies: No Known Allergies (Unverified , 06/24/16) Past Medical History COPD Anxiety Tobacco abuse Dyslipidemia Past Surgical History s/p total vaginal hysterectomy with bso, Ant repair 06/24/16 Reported Medications Centrum (Multiple Vitamins W/ Minerals) 1 Chew 1 Tab CHEW DAILY Lortab (Hydrocodone-Acetaminophen) 10-325 Mg Tab 1 Tab PO Q8HR PRN Xanax (Alprazolam) 1 Mg Tab 1 Mg PO BID Active Ordered Medications Reviewed Family History Noncontributory Social History 1 pack cig per day Alcohol use Physical Exam Vital Signs Vital Signs Date Time Temp Pulse Resp B/P Pulse Ox O2 Delivery O2 Flow Rate FiO2 07/09/16 12:58 94 Venturi Mask 6.00 50 07/09/16 10:30 93 16 97/53 94 Venturi Mask 50 07/09/16 10:00 100.9 105 18 94/54 93 Venturi Mask 50 07/09/16 09:30 108 21 103/52 95 Venturi Mask 50 07/09/16 09:00 112 20 120/57 93 Non-Rebreather 8 07/09/16 08:47 96 Non-Rebreather 15.00 100 07/09/16 08:45 110 20 129/59 93 Non-Rebreather 8 07/09/16 08:30 22 78 Room Air 07/09/16 08:30 95 Non-Rebreather 15 07/09/16 08:29 103.0 128 20 98/73 78 Physical Exam GENERAL: 55 yo female who is tachycardic in moderate distress SKIN: Skin is Warm and dry. HEAD: Atraumatic. Normocephalic. EYES: Pupils equal and round. No scleral icterus. No injection or drainage. ENT: No nasal bleeding or discharge. Mucous membranes pink and moist. NECK: Trachea midline. No JVD. CARDIOVASCULAR: Sinus rhythm. No murmur appreciated. Tachycardic 125 RESPIRATORY: Positive accessory muscle use. Diffuse rhonchi and wheezes. Basilar crackles GASTROINTESTINAL: Abdomen soft, bilateral lower quadrant tenderness . Hepatic and splenic margins not palpable. MUSCULOSKELETAL: No obvious deformities. No clubbing. No cyanosis. No edema. NEUROLOGICAL: Awake and alert. No obvious cranial nerve deficits. Motor grossly within normal limits. Normal speech. Pelvic (Done by ER physician): Speculum exam was done and there is no dehiscence of the vaginal vault. No tenderness or discharge in the vault Laboratory Laboratory Tests Test 07/09/16 07/09/16 07/09/16 08:35 09:40 10:51 White Blood Count 15.6 Red Blood Count 3.91 Hemoglobin 11.8 Hematocrit 34.8 Mean Corpuscular Volume 89.1 Mean Corpuscular Hemoglobin 30.1 Mean Corpuscular Hemoglobin 33.8 Concent Red Cell Distribution Width 14.1 Platelet Count 375 Mean Platelet Volume 7.7 Neutrophils (%) (Auto) 96.0 Lymphocytes (%) (Auto) 2.0 Monocytes (%) (Auto) 1.0 Eosinophils (%) (Auto) 0.9 Basophils (%) (Auto) 0.1 Neutrophils # (Auto) 15.0 Lymphocytes # (Auto) 0.3 Monocytes # (Auto) 0.2 Eosinophils # (Auto) 0.1 Basophils # (Auto) 0.0 CBC Comment DIFF FINAL Differential Comment Sodium Level 136 Potassium Level 3.5 Chloride Level 101 Carbon Dioxide Level 24.9 Anion Gap 10 Blood Urea Nitrogen 25 Creatinine 0.96 Estimat Glomerular Filtration 60 Rate Random Glucose 154 Lactic Acid Level 1.9 Calcium Level 8.9 Urine Color YELLOW Urine Turbidity HAZY Urine pH 5.5 Urine Specific [place] 1.015 Urine Protein 30 Urine Glucose (UA) NEG Urine Ketones NEG Urine Occult Blood LARGE Urine Nitrite NEG Urine Bilirubin NEG Urine Urobilinogen LESS THAN 2.0 Urine Leukocyte Esterase MOD Urine RBC 38 Urine WBC 4 Urine WBC Clumps OCC Urine Squamous Epithelial 1 Cells Urine Amorphous Sediment RARE Urine Bacteria MOD Urine Hyaline Casts 2 Urine Mucus FEW Microscopic Urinalysis Comment CULTURE INDICATED Blood Gas Puncture Site RT RADIAL Blood Gas Patient Temperature 98.6 Blood Gas HCO3 21 Blood Gas Base Excess -3.2 Blood Gas Oxygen Saturation 89 Arterial Blood pH 7.37 Arterial Blood Partial 38 Pressure CO2 Arterial Blood Partial 65 Pressure O2 Arterial Blood Oxygen Content 12.8 Arterial Blood 2.8 Carboxyhemoglobin Arterial Blood Methemoglobin 0.6 Blood Gas Hemoglobin 10.2 Oxygen Delivery Device Venti Mask Blood Gas Liter Flow 6 Blood Gas Inspired Oxygen 50 Date/Time Procedure Status Source Growth 07/09/16 09:40 Urine Culture Received Urine Clean Catch Pending 07/09/16 09:40 Cancelled Urine Clean Catch 07/09/16 08:40 Aerobic Blood Culture Received Blood Peripheral Pending 07/09/16 08:40 Anaerobic Blood Culture Received Blood Peripheral Pending Result Diagram: 07/09/16 0835 07/09/[address] chest bibasilar pneumonia Septic Shock Reassessment Heart: Other (tachycardic) Lungs: Course, Crackles Skin: Warm Peripheral Pulses: Weak Right Radial Weak Left Radial Capillary Refill: <2 seconds Assessment and Plan Assessment and Plan NEURO: Anxiety disorder -Xanax 0.5 mg by mouth twice a day for anxiety -Continue hydrocodone for pain RESP: Acute hypoxemic respiratory failure Healthcare associated pneumonia COPD exacerbation -Currently on nonrebreather, use BiPAP as needed -Broad-spectrum antibiotics with Zosyn and azithromycin and single dose of vancomycin -IV Solu-Medrol 60 mg every 8 hours -DuoNeb every 4 hours scheduled and when necessary CV: Hypotension secondary to sepsis -Normal saline IV fluids 3 L boluses and 84 mL per hour -Trend lactic acid GI: -NPO -CT abd pelvis STAT to rule out abscess -IV Protonix : -Status post total vaginal hysterectomy and SBO 06/24/16. -Monitor renal function closely. ID: Severe sepsis Healthcare associated pneumonia -IV vancomycin x1. Zosyn 4.5 g every 6 hours, azithromycin 500 mg daily -Blood urine and sputum cultures HEME: -Monitor CBC, CMP, coags ENDO: -Electrolyte replacement protocol, sliding scale insulin PROPH: -Bilateral lower extremity SCDs. Lovenox for DVT prophylaxis. IV Protonix 40 mg daily for GI prophylaxis LINES: -Utilize peripheral IVs, central line if needed CC time 55 min Problem Qualifiers (1) COPD (chronic obstructive pulmonary disease): Qualified Code: J44.9 - Chronic obstructive pulmonary disease, unspecified COPD type Chloé Wisdom MD Jul 09, 2016 13:54
[2016-07-09] MEDS ORDERED: POTASSIUM PHOSPHATE MONOBASIC 500 MG TAB PO/TUBE PRN (14:20)
[2016-07-09] MEDS ORDERED: POTASSIUM PHOSPHATE INJ 30 MMOL in SODIUM CHLOR 0.9% 250 ML INJ 250 ML IV PRN (14:20)
[2016-07-09] MEDS ORDERED: MAGNESIUM SULFATE INJ 2 GM in SODIUM CHLORIDE 0.9% INJ 96 ML IV PRN (14:30)
[2016-07-09] MEDS ORDERED: POTASSIUM CHLOR 20 MEQ PREMIX 100 ML IV PRN ×2 (14:30)
[2016-07-09] MEDS ORDERED: POTASSIUM CHLORIDE 25 MEQ EFFERVESCENT TAB PO PRN (14:30)
[2016-07-09] MEDS ORDERED: POTASSIUM CHLOR 40 MEQ PREMIX 100 ML IV PRN ×2 (14:30)
[2016-07-09] MEDS ORDERED: MAGNESIUM SULFATE INJ 4 GM in SODIUM CHLORIDE 0.9% INJ 92 ML IV PRN (14:30)
[2016-07-09] MEDS ORDERED: SODIUM PHOSPHATE INJ 30 MMOL in SODIUM CHLOR 0.9% 250 ML INJ 240 ML IV PRN (14:30)
[2016-07-09] MEDS ORDERED: POTASSIUM PHOSPHATE MONOBASIC 500 MG TAB PO PRN (14:30)
[2016-07-09] MEDS ORDERED: MAGNESIUM OXIDE 400 MG TAB PO PRN (14:30)
[2016-07-09] MEDS ORDERED: VANCOMYCIN INJ 1,000 MG in SODIUM CHLOR 0.9% 250 ML INJ 250 ML IV ONE (15:00)
[2016-07-09] MEDS: methylPREDNISolone SOD SUCC 125 MG/2 ML VIAL IV PUSH SCH ×2 (15:21→21:01)
[2016-07-09] MEDS: ENOXAPARIN SODIUM 40 MG/0.4 ML SYRINGE SQ SCH (15:21)
[2016-07-09] MEDS: ACETAMINOPHEN/HYDROcodone 325 MG/10 MG TAB PO PRN (15:23)
[2016-07-09] MEDS: PIPERACIL-TAZO 4.5 GM PREMIX 100 ML IV SCH ×2 (16:13→21:01)
[2016-07-09] MEDS ORDERED: IOHEXOL 350 MG/ML 10 ML VIAL (for RAD DIAG) IV ONE (17:23)
--- NOTE | 2016-07-09 17:57 | RADRPT ---
EXAM DATE/TIME: 07/09/2016 17:20 This report includes an Addendum and supersedes previous reports for this exam. [facility] COMPARISON: No previous studies available for comparison. INDICATIONS : Diffuse abdomen pain. IV CONTRAST: 97 cc Omnipaque 350 (iohexol) IV ORAL CONTRAST: No oral contrast ingested. RADIATION DOSE: 10.08 CTDIvol (mGy) MEDICAL HISTORY : Congestive heart failure. SURGICAL HISTORY : Hysterectomy. ENCOUNTER: Initial ACUITY: 1 day PAIN SCALE: Non-responsive LOCATION: Bilateral upper quadrant TECHNIQUE: Volumetric scanning of the abdomen and pelvis was performed. Using automated exposure control and ad justment of the mA and/or kV according to patient size, radiation dose was kept as low as reasonably achievable to obtain optimal diagnostic quality images. FINDINGS: LOWER LUNGS: Moderate severity consolidation of the dependent portions of the lower lobes bilaterally. Coronary ar jerman calcifications. LIVER: Mild diffuse hepatic steatosis. SPLEEN: Normal size without lesion. PANCREAS: Within normal limits. KIDNEYS: Normal in size and shape. There is no mass, stone or hydronephrosis. ADRENAL GLANDS: Within normal limits. VASCULAR: There is no aortic aneurysm. BOWEL/MESENTERY: Loculated extraluminal gas and fluid collection is seen central pelvis measuring 7.4 x 3.4 cm in axia l dimensions. This finding is immediately anterior to the mid sigmoid colon. It extends superiorly ad jacent to a loop of pelvic small bowel. The more superior component of the extraluminal gas and fluid measures 2.9 x 2.8 cm. Adjacent small bowel loop as markedly thickened wall over an approximately 10 cm segment. The adjacent mid sigmoid colon also demonstrates diffusely thickened wall. Likely cecal appendix is seen just medial to the cecum. It is within normal limits. ABDOMINAL WALL: Within normal limits. RETROPERITONEUM: There is no lymphadenopathy. BLADDER: Distended. REPRODUCTIVE: Within normal limits. INGUINAL: There is no lymphadenopathy or hernia. MUSCULOSKELETAL: Insufficiency type fracture of the right side of the sacrum. Insufficiency fracture of the right-side d pubic rami. These findings are likely subacute to chronic. CONCLUSION: 1. Extraluminal gas and fluid collection in the central pelvis. The most likely etiology in a patient of this age would be subacute diverticulitis with subsequent abscess formation. The gas and fluid co llection is also adjacent to a loop of thickened small bowel. Inflammatory bowel disease would also b e in the differential diagnosis. 2. Right-sided sacral and pubic rami insufficiency fractures likely subacute chronic. 3. Prominent bilateral lower lobe pulmonary consolidation Tomas Clark MD on July 09, 2016 at 17:39 Board Certified Radiologist. This report was verified electronically. ADDENDUM: Additional clinical data is now available. This patient underwent a hysterectomy 2 weeks ago. The air and fluid within the pelvis is felt to relate to postoperative infection as opposed to an acute dive rticulitis. Although there is some liquefaction there are multiple small pockets of air and no large drainable collection. I feel there is incomplete liquefaction at this point. If symptoms persist a fo llowup CT can be performed to see if there is a drainable collection at that time. I do not see anyth ing to suggest bowel or bladder injury. I spoke with and Dr Faust concerning this. Orlin Santana Jr., MD on July 09, 2016 at 18:37 Board Certified Radiologist. This report was verified electronically.
[2016-07-09] MEDS ORDERED: SODIUM CHLOR 0.9% 1000 ML INJ 1,000 ML IV SCH (18:45)
--- NOTE | 2016-07-09 19:38 | PD.CONS ---
HPI Chief Complaint admitted for severe respiratory distress after arrival by [facility]. still having pelvic pain and leakage of urine with severe productive cough. s/p TVHBSO and transobterator tape with Solyx. Date Seen: Jul 09, 2016 Time Seen: 19:11 Travel History International Travel<30 Days: No Contact w/Intl Traveler<30Days: No Known Affected Area: No History of Present Illness HPI 55 yo wf P2 2+ weeks s/p TVHBSO A/P repair and urethropexy. 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 She had terrible chronic back pain and new pain radiating down the anterior thigh from the mons. She said she could empty her bladder but definitely had overflow leakage and pre op evaluation showed cath of 600. Surgery proceeded uneventfully and she voided successfully post op day 1 and was discharged with restrictions. She did well first few days and then developed abdominal and pelvic pain. She started leaking large quantities with a very deep and productive cough and was quite anxious about this. She is a heavy smoker with history of COPD. She came in early for her follow up appointment on 07/07 with the above complaints. She was afebrile with stable vital signs. She had no CVAT tenderness, a negative UA, an abdominal and pelvic sonogram that showed normal cuff and no hydronephrosis or hydroureter. Her back pain was profound and she has had a history of chronic back pain treated by caitlyn with her PCP. On speculum exam the vaginal suture line was clean and there was no bladder or cuff tenderness. She was given a medrol dose pack and a renewal of her post op percocet and cautioned about using with her chronic norco. She was given macrobid since she was again straight catheterized this visit. I did not listen to her lungs. She was asked to return in 48 hours. Before today's scheduled office visit, she came to ED by [facility] in severe respiratory distress, with productive cough and fever. Her WBC was 15K (I had given her the medrol dose pack on Tuesday) She was transferred to the MICU and imaging revealed bilateral pneumonia and a 6 cm multiloculated complex behind her bladder. Again a pelvic exam performed in the ED did not show bladder or cuff tenderness. Imaging does not suggest compromise of bowels or bladder. I was contacted at 6:30 pm tonight about her admission and came in to evaluate. She was very frightened and anxious. Coughing profusely and had a arroyo in place for I & O so was not leaking with her coughing. She can talk comfortably on her rebreather. She expresses hunger. She states her abdomen still remains tender. Para: 2 History Past Medical History Narrative Medical chronic back pain heavy smoker anxiety disorder Medical History: Denies Significant Hx (sm) Obstetric History Obstetric History 2 children vaginally Family History Family History: Negative Social History Alcohol Use: Yes Tobacco Use: Yes Substance Abuse: No Allergies-Medications (Allergen,Severity, Reaction): Coded Allergies: No Known Allergies (Unverified , 06/24/16) Home Meds Reported Medications Multiple Vitamins W/ Minerals (Centrum)1 Chew1 Tab CHEW DAILY Ref 0 07/09/16 Hydrocodone-Acetaminophen (Lortab)10-325 Mg Tab1 Tab PO Q8HR PRN (PAIN) Ref 0 06/21/16 Alprazolam (Xanax)1 Mg Tab1 Mg PO BID Ref 0 06/21/16 Discontinued Reported Medications Oxycodone-Acetaminophen (Percocet)5-325 mg Tab1 Tab PO Q6H PRN (PAIN) Ref 0 06/21/16 Discontinued Scripts Nitrofurantoin Monohydrate Macrocrystals (Macrobid)100 Mg [id number] Mg PO BID #14 CAP Ref 0 Prov:Isabelle Faust MD 06/24/16 Oxycodone-Acetaminophen 5-325 mg Tab2 Tab PO Q4H PRN (PAIN SCALE 6 TO 10) #30 TAB Prov:Isabelle Faust MD 06/24/16 Review of Systems General / Constitutional: Fever Respiratory: Cough, Short of Breath, Wheezing Gastrointestinal: Abdominal Pain, Loss of Appetite Genitourinary: Frequency, Incontinence Musculoskeletal: Weakness Psychiatric: Anxiety, Depression Physical Exam Vital Signs Date Time Temp Pulse Resp B/P Pulse Ox O2 Delivery O2 Flow Rate FiO2 07/09/16 18:00 79 07/09/16 16:00 85 07/09/16 16:00 97.6 85 27 93/52 95 07/09/16 15:00 82 28 94 07/09/16 12:58 94 Venturi Mask 6.00 50 07/09/16 10:30 93 16 97/53 94 Venturi Mask 50 07/09/16 10:00 100.9 105 18 94/54 93 Venturi Mask 50 07/09/16 09:30 108 21 103/52 95 Venturi Mask 50 07/09/16 09:00 112 20 120/57 93 Non-Rebreather 8 07/09/16 08:47 96 Non-Rebreather 15.00 100 07/09/16 08:45 110 20 129/59 93 Non-Rebreather 8 07/09/16 08:30 22 78 Room Air 07/09/16 08:30 95 Non-Rebreather 15 07/09/16 08:29 103.0 128 20 98/73 78 Narrative GENERAL: thin, dehydrated woman on rebreather mask with anxiety and tearful SKIN: Warm and dry. HEAD: Normocephalic and atraumatic. EYES: No scleral icterus. No injection or drainage. ENT: No nasal drainage noted. Mucous membranes pink. Airway patent. NECK: Supple, trachea midline. No JVD. CARDIOVASCULAR: Regular rate and rhythm without murmurs, gallops, or rubs. RESPIRATORY:decreased breath sounds both lungs lower half rhonci severe BREASTS: Bilateral exam showed no masses , no retractions, no nipple discharge. ABDOMEN/GI: Abdomen soft, non-tender, bowel sounds present, no rebound, no guarding no CVAT] GENITOURINARY: no leakage around arroyo No bleeding Decels: [-] EXTREMITIES: No cyanosis or edema. BACK: Nontender without obvious deformity. No CVA tenderness. NEUROLOGICAL: Awake and alert. Motor and sensory grossly within normal limits. Five out of 5 muscle strength in all muscle groups. Normal speech. three tiny areas of possible skin breaking down on left buttocks Data Data Orders Complete Blood Count With Diff (07/09/16 08:37) Basic Metabolic Panel (Bmp) (07/09/16 08:37) Urinalysis - C+S If Indicated (07/09/16 08:37) Iv Access Insert/Monitor (07/09/16 08:37) Ecg Monitoring (07/09/16 08:37) Oximetry (07/09/16 08:37) Oxygen Administration (07/09/16 08:37) Chest, Single Ap (07/09/16 08:37) Sodium Chloride 0.9% Flush (Ns Flush) (07/09/16 08:45) Albuterol-Ipratropium Neb (Duoneb Neb) (07/09/16 08:45) Sodium Chlor 0.9% 1000 Ml Inj (Ns 1000 M (07/09/16 08:45) Piperacil-Tazo 3.375 Gm Premix (Zosyn 3. (07/09/16 08:45) Albuterol-Ipratropium Neb (Duoneb Neb) (07/09/16 08:39) Blood Culture (07/09/16 08:39) Acetaminophen (Tylenol) (07/09/16 08:45) Ibuprofen (Motrin) (07/09/16 08:45) Lactic Acid (07/09/16 08:46) Sodium Chlor 0.9% 1000 Ml Inj (Ns 1000 M (07/09/16 09:00) Urine Culture (07/09/16 09:40) Methylprednisolone So Succ Inj (Solumedr (07/09/16 10:15) Ct Thorax/ Chest Wo Iv Contras (07/09/16 ) Admit Order (Ed Use Only) (07/09/16 10:36) Admit To Inpatient (07/09/16 ) Code Status (07/09/16 10:40) Vital Signs (Adult) MASON.Q1H (07/09/16 10:40) Activity Bed Rest (07/09/16 10:40) ^ Elevate Head Of Bed (07/09/16 10:40) Diet Heart Healthy (07/09/16 Lunch) Sodium Chlor 0.9% 1000 Ml Inj (Ns 1000 M (07/09/16 10:40) Acetaminophen (Tylenol) (07/09/16 10:45) Pantoprazole Inj (Protonix Inj) (07/09/16 10:45) Albuterol-Ipratropium Neb (Duoneb Neb) (07/09/16 12:00) Albuterol-Ipratropium Neb (Duoneb Neb) (07/09/16 10:45) Complete Blood Count With Diff (07/10/16 04:00) Comprehensive Metabolic Panel (07/10/16 04:00) Magnesium (Mg) (07/10/16 04:00) Sputum Culture And Gram Stain (07/09/16 10:40) Chest, Single Ap (07/10/16 ) Arterial Blood Gas (Abg) (07/09/16 ) Resp Bipap / Cpap Non Invas Vt (07/09/16 ) Flight Control Specialist / Telemetry MASON.Q8H (07/09/16 10:40) Enoxaparin Inj (Lovenox Inj) (07/09/16 12:00) Scd Bilateral/Knee High MASON.BID (07/09/16 10:40) Francis Bilateral/Knee High MASON.QSHIFT (07/09/16 10:40) ^ Initiate Protocol (07/09/16 10:40) Instruction (07/09/16 10:40) [facility] Nursing Information (07/09/16 10:45) Chlorhexidine 2% Cloth (Chlorhexidine 2% (07/10/16 04:00) Chlorhexidine 2% Cloth (Chlorhexidine 2% (07/09/16 10:45) Mrsa Pcr Surveillance (07/09/16 10:40) Docusate Sodium-Senna (Dayan-Colace) (07/09/16 21:00) Magnesium Hydroxide Liq (Milk Of Magnesi (07/09/16 10:45) Sennosides (Senokot) (07/09/16 10:45) Bisacodyl Supp (Dulcolax Supp) (07/09/16 10:45) Lactulose Liq (Lactulose Liq) (07/09/16 10:45) Inpatient Certification (07/09/16 ) Methylprednisolone So Succ Inj (Solumedr (07/09/16 14:00) Cefepime Inj (Maxipime Inj) (07/09/16 12:00) Azithromycin Inj (Zithromax Inj) (07/09/16 11:00) Sodium Chlor 0.9% 1000 Ml Inj (Ns 1000 M (07/09/16 15:00) Vancomycin Inj (Vancomycin Inj) (07/09/16 15:00) Acetamin-Hydrocod 325-10 Mg ([place] 10-32 (07/09/16 14:30) Alprazolam (Xanax) (07/09/16 14:30) ^ Medication Admin Instruction (07/09/16 14:20) Notify Dr: Other (07/09/16 14:20) Phosphorus (Po4) (07/09/16 14:20) Potassium Chlor 40 Meq Premix (Kcl 40 Me (07/09/16 14:30) Potassium Chlor 20 Meq Premix (Kcl 20 Me (07/09/16 14:30) Potassium Chloride Eff (K-Lyte Cl Eff) (07/09/16 14:30) Potassium Chlor 40 Meq Premix (Kcl 40 Me (07/09/16 14:30) Potassium Chlor 20 Meq Premix (Kcl 20 Me (07/09/16 14:30) Magnesium Sulfate Inj (Magnesium Sulfate (07/09/16 14:30) Magnesium Oxide (Mag-Ox) (07/09/16 14:30) Magnesium Sulfate Inj (Magnesium Sulfate (07/09/16 14:30) Potassium Phosphate (K-Phos) (07/09/16 14:30) Sodium Phosphate Inj (Sodium Phosphate I (07/09/16 14:30) Potassium Phosphate (K-Phos) (07/09/16 14:20) Potassium Phosphate Inj (Potassium Phosp (07/09/16 14:20) Piperacil-Tazo 4.5 Gm Premix (Zosyn 4.5 (07/09/16 16:00) Ct Abd/Pel W Iv Contrast(Rout) (07/09/16 ) Diet Full Liquid (07/09/16 Dinner) Instruction (07/09/16 16:14) Instruction (07/09/16 16:14) Pneumococcal-23 Polyvalent Inj (Pneumova (07/10/16 10:00) Iohexol 350 Inj (Omnipaque 350 Inj) (07/09/16 17:23) Consult Gynecology (07/09/16 ) (Hub Use Only)Inp Phy Cons/Ref (07/09/16 ) Sodium Chlor 0.9% 1000 Ml Inj (Ns 1000 M (07/09/16 18:45) Urinary Catheter Management MASON.Q8H (07/09/16 18:51) (Hub Use Only)Inp Phy Cons/Ref (07/09/16 ) Labs Laboratory Tests Test 07/09/16 07/09/16 07/09/16 07/09/16 08:35 09:40 10:51 13:45 White Blood Count 15.6 Red Blood Count 3.91 Hemoglobin 11.8 Hematocrit 34.8 Mean Corpuscular Volume 89.1 Mean Corpuscular Hemoglobin 30.1 Mean Corpuscular Hemoglobin 33.8 Concent Red Cell Distribution Width 14.1 Platelet Count 375 Mean Platelet Volume 7.7 Neutrophils (%) (Auto) 96.0 Lymphocytes (%) (Auto) 2.0 Monocytes (%) (Auto) 1.0 Eosinophils (%) (Auto) 0.9 Basophils (%) (Auto) 0.1 Neutrophils # (Auto) 15.0 Lymphocytes # (Auto) 0.3 Monocytes # (Auto) 0.2 Eosinophils # (Auto) 0.1 Basophils # (Auto) 0.0 CBC Comment DIFF FINAL Differential Comment Sodium Level 136 Potassium Level 3.5 Chloride Level 101 Carbon Dioxide Level 24.9 Anion Gap 10 Blood Urea Nitrogen 25 Creatinine 0.96 Estimat Glomerular Filtration 60 Rate Random Glucose 154 Lactic Acid Level 1.9 Calcium Level 8.9 Phosphorus Level 3.4 Urine Color YELLOW Urine Turbidity HAZY Urine pH 5.5 Urine Specific Eddy 1.015 Urine Protein 30 Urine Glucose (UA) NEG Urine Ketones NEG Urine Occult Blood LARGE Urine Nitrite NEG Urine Bilirubin NEG Urine Urobilinogen LESS THAN 2.0 Urine Leukocyte Esterase MOD Urine RBC 38 Urine WBC 4 Urine WBC Clumps OCC Urine Squamous Epithelial 1 Cells Urine Amorphous Sediment RARE Urine Bacteria MOD Urine Hyaline Casts 2 Urine Mucus FEW Microscopic Urinalysis Comment CULTURE INDICATED Blood Gas Puncture Site RT RADIAL Blood Gas Patient Temperature 98.6 Blood Gas HCO3 21 Blood Gas Base Excess -3.2 Blood Gas Oxygen Saturation 89 Arterial Blood pH 7.37 Arterial Blood Partial 38 Pressure CO2 Arterial Blood Partial 65 Pressure O2 Arterial Blood Oxygen Content 12.8 Arterial Blood 2.8 Carboxyhemoglobin Arterial Blood Methemoglobin 0.6 Blood Gas Hemoglobin 10.2 Oxygen Delivery Device Venti Mask Blood Gas Liter Flow 6 Blood Gas Inspired Oxygen 50 Nasal Screen MRSA (PCR) MRSA NOT DETECTED Date/Time Procedure Status Source Growth 07/09/16 09:40 Urine Culture Received Urine Clean Catch Pending 07/09/16 09:40 Cancelled Urine Clean Catch 07/09/16 08:40 Aerobic Blood Culture Received Blood Peripheral Pending 07/09/16 08:40 Anaerobic Blood Culture Received Blood Peripheral Pending MDM Medical Record Reviewed: Yes Narrative Course / MDM severe pneumonia and possible sepsis 2 + weeks post unremarkable TVHBSO AP repair heavy smoker with COPD 6 cm multiloculated area behind bladder without suggestion of bowel or bladder compromise Given medrol dose pack and macrobid 48 hours ago. Plan continue zosyn and vanco and respiratory support up to and including intubation if she remains comfortable on rebreather and wants to eat, she can reviewed CT with Raoul Santana and intervention for the fluid collection not indicated at this time. will see in am. Admitting diagnosis: acute hypoxic resp failure,COPD,bronchitis Isabelle Faust MD Jul 09, 2016 19:38
[2016-07-09] MEDS: DOCUSATE SODIUM 50 MG/SENNA 8.6 MG TAB PO SCH (21:00)
[2016-07-09] MEDS: ALPRAZolam 0.5 MG TAB PO PRN (21:47)
[2016-07-10] VITALS (26 sets, daily range): BP systolic 89–112; BP diastolic 52–61; PULSE 59–87; RESP 21–29; TEMP 97.5–97.8; O2SAT 89–97
[2016-07-10] MEDS ORDERED: NOREPINEPHRINE 4 MG/D5W 250 ML IV SCH (02:00)
[2016-07-10] MEDS: ACETAMINOPHEN/HYDROcodone 325 MG/10 MG TAB PO PRN (03:03)
--- NOTE | 2016-07-10 03:29 | RADRPT ---
EXAM DATE/TIME: 07/10/2016 02:44 [place] COMPARISON: CHEST SINGLE AP, July 09, 2016, 8:48. INDICATIONS : Central line placement. MEDICAL HISTORY : Chronic obstructive pulmonary disease. SURGICAL HISTORY : None. ENCOUNTER: Subsequent ACUITY: 2 days PAIN SCORE: Non-responsive. LOCATION: Bilateral chest FINDINGS: Right IJ line is present with tip overlapping the expected region of the SVC. No definite pneumothora x is seen for technique. Slight interstitial process has developed probably pulmonary edema. CONCLUSION: Line place and no pneumothorax, however interval development of interstitial edema. Amber De Oliveira MD on July 10, 2016 at 3:27 Board Certified Radiologist. This report was verified electronically.
[2016-07-10] MEDS: PIPERACIL-TAZO 4.5 GM PREMIX 100 ML IV SCH ×4 (03:30→21:40)
[2016-07-10] MEDS: CHLORHEXIDINE GLUCONATE 2 % 1 PACK (2 CLOTHS) TOP SCH (03:30)
[2016-07-10 04:32] LABS: AUTOMATED NEUTROPHIL # 16.8 TH/MM3 (1.8-7.7); BASOPHIL % 0.1 % (0.0-2.0); EOSINOPHIL % 0.1 % (0.0-4.0); HEMATOCRIT 28.5 % (35.0-46.0); HEMO FLAGS DIFF FINAL; LYMPH % 5.8 % (9.0-44.0); MEAN CELL VOLUME 90.7 FL (80.0-100.0); MEAN CORPUSCULAR HEMOGLOBIN 29.9 PG (27.0-34.0); MONO % 1.6 % (0.0-8.0); NEUT % 92.4 % (16.0-70.0); PLATELET COUNT 315 TH/MM3 (150-450); RED BLOOD COUNT 3.14 MIL/MM3 (4.00-5.30); RED CELL DISTRIBUTION WIDTH 14.5 % (11.6-17.2); WHITE BLOOD COUNT 18.1 TH/MM3 (4.0-11.0)
[2016-07-10 04:43] LABS: ALKALINE PHOSPHATASE 212 U/L (45-117); ALT (GPT) 23 U/L (10-53); ANION GAP 10 MEQ/L (5-15); AST (GOT) 28 U/L (15-37); BICARBONATE 20.7 MEQ/L (21.0-32.0); BLOOD UREA NITROGEN 10 MG/DL (7-18); CHLORIDE 114 MEQ/L (98-107); GLOMERULAR FILTRATION RATE 105 ML/MIN (>89); MAGNESIUM 2.1 MG/DL (1.5-2.5); POTASSIUM 3.3 MEQ/L (3.5-5.1); SODIUM (NA) 145 MEQ/L (136-145); TOTAL BILIRUBIN ADULT 0.3 MG/DL (0.2-1.0)
[2016-07-10] MEDS: RESP: ALBUTEROL 2.5 MG/IPRATROPIUM 0.5 MG NEB (SCH) INH ×7 (04:48→23:20)
[2016-07-10] MEDS: methylPREDNISolone SOD SUCC 125 MG/2 ML VIAL IV PUSH SCH ×3 (05:52→21:40)
--- NOTE | 2016-07-10 05:56 | PD.PROCEDR ---
Procedure Note Procedure A time-out was completed verifying correct patient, procedure, site, positioning , and special equipment if applicable. The patient was placed in a dependent position appropriate for central line placement based on the vein to be cannulated. The patients right neck was prepped and draped in sterile fashion. 1% Lidocaine was used to anesthetize the surrounding skin area. A triple lumen 9 -[place]gas[place] Cordis catheter was introduced into the the internal jugular vein using the Seldinger technique and under ultrasound guidance. The catheter was threaded smoothly over the guide wire and appropriate blood return was obtained. Each lumen of the catheter was evacuated of air and flushed with sterile saline. The catheter was then sutured in place to the skin and a sterile dressing applied. Perfusion to the extremity distal to the point of catheter insertion was checked and found to be adequate. Estimated Blood Loss: 1ml The patient tolerated the procedure well and there were no complications. Jono Vásquez MD Jul 10, 2016 05:56
[2016-07-10] MEDS ORDERED: Vancomycin Consult Pharmacy 1 EA OTHER SCH (07:30)
--- NOTE | 2016-07-10 07:31 | HHI.CCPN ---
Subjective Remarks/Hospital Course Patient is a 55-year-old female with past medical history significant for COPD, tobacco abuse, dyslipidemia and anxiety who had undergone TVH, BSO, A/P repair and urethropexy on 06/24/16. She was brought to the [place] ER for shortness of of breath and productive cough with clear colored phlegm. On arrival patient had temperature of 103. She has history of COPD. Initial oxygen saturation of 79%, tachycardic in the 120s. Patient reports having a hysterectomy 2 weeks ago but has no vaginal discharge or bleeding or significant pelvic pain. After establishing IV line patient had 2 L normal saline bolus and IV Zosyn. Blood cultures were sent before initiating antibiotics. WBC count 15.6 with 96% neutrophils. Chest x-ray did not show significant consolidation, however CT of the chest showed bibasilar infiltrates consistent with pneumonia. Patient received 3 DuoNeb breathing treatments and IV Solu-Medrol and was placed on nonrebreather with improvement in saturation. I evaluated the patient in the ICU. She appears critically ill. Subjectively she feels that breathing might have improved slightly. Patient do complain of lower abdominal pain now SUBJ 07/10: CT chest showed evidence of bibasilar pneumonia, CT abdomen pelvis showed evidence of possible pelvic abscess. With recent surgery this could indicate postop infection, Dr. Faust from [facility] consulted-recommends continued medical management at this time with no surgery. Started on Levophed for septic shock, currently off as MAP >65 Objective Vital Signs Date Time Temp Pulse Resp B/P Pulse Ox O2 Delivery O2 Flow Rate FiO2 07/10/16 06:00 61 07/10/16 04:00 97.6 22 101/60 94 07/09/16 20:12 Venturi Mask 6.00 50 Intake and Output 07/09/16 07/09/16 07/10/16 08:00 16:00 00:00 Intake Total 4820 ml Output Total 1250 ml Balance 3570 ml Result Diagram: 07/10/16 0404 07/10/16 0404 Other Results Laboratory Tests Test 07/09/16 10:51 Blood Gas Puncture Site RT RADIAL Blood Gas Patient Temperature 98.6 Blood Gas HCO3 21 mmol/L (22-26) Blood Gas Base Excess -3.2 mmol/L (-2-2) Blood Gas Oxygen Saturation 89 % (90-100) Arterial Blood pH 7.37 (7.380-7.420) Arterial Blood Partial 38 mmHg (38-42) Pressure CO2 Arterial Blood Partial 65 mmHG Pressure O2 (61-120) Arterial Blood Oxygen Content 12.8 Vol % (12.0-20.0) Arterial Blood 2.8 % (0-4) Carboxyhemoglobin Arterial Blood Methemoglobin 0.6 % (0-2) Blood Gas Hemoglobin 10.2 G/DL (12.0-16.0) Oxygen Delivery Device Venti Mask Blood Gas Liter Flow 6 L/M Blood Gas Inspired Oxygen 50 % Imaging CT chest bibasilar pneumonia Objective Remarks GENERAL: 55 yo female who is critically ill, lying on bed SKIN: Skin is Warm and dry. HEAD: Atraumatic. Normocephalic. EYES: Pupils equal and round. No scleral icterus. No injection or drainage. ENT: No nasal bleeding or discharge. Mucous membranes pink and moist. NECK: Trachea midline. No JVD. CARDIOVASCULAR: Sinus rhythm. No murmur appreciated. Tachycardic RESPIRATORY: Mild rhonchi and wheezes. Basilar crackles GASTROINTESTINAL: Abdomen soft, bilateral lower quadrant tenderness . Hepatic and splenic margins not palpable. MUSCULOSKELETAL: No obvious deformities. No clubbing. No cyanosis. No edema. NEUROLOGICAL: Awake and alert. No obvious cranial nerve deficits. Motor grossly within normal limits. Normal speech. Pelvic (Done by ER physician): Speculum exam showed no dehiscence of the vaginal vault. No tenderness or discharge in the vault A/P Assessment and Plan NEURO: Anxiety disorder -Xanax 0.5 mg by mouth twice a day for anxiety -Continue hydrocodone for pain RESP: Acute hypoxemic respiratory failure Healthcare associated pneumonia COPD exacerbation -Currently on VM, use BiPAP as needed -Broad-spectrum antibiotics with Zosyn and azithromycin and vancomycin -IV Solu-Medrol 60 mg every 8 hours -DuoNeb every 4 hours scheduled and when necessary CV: Septic shock -Normal saline IV fluids total 4 L boluses and 84 mL per hour -Trend lactic acid - Levophed to keep map above 65 GI: -NPO, diet okd by Dr. Faust. Will start clear liquid diet in 24 hours -CT abd pelvis -see below -IV Protonix /CHIEF DESIGN BRANCH: s/p TVH, BSO, A/P repair and urethropexy on 06/24/16 Possible pelvic abscess -CT abdomen pelvis- showed possible fluid collection posterior to the bladder, possible abscess -Dr. Faust recommends continued medical management -Monitor renal function closely. ID: Severe sepsis Healthcare associated pneumonia Possible pelvic abscess and ?post op infection -IV vancomycin pharmacy to dose. Zosyn 4.5 g every 6 hours, azithromycin 500 mg daily -F/U Blood urine and sputum cultures -ID consulted HEME: -Monitor CBC, CMP, coags ENDO: -Electrolyte replacement protocol, sliding scale insulin PROPH: -Bilateral lower extremity SCDs. Lovenox for DVT prophylaxis. IV Protonix 40 mg daily for GI prophylaxis LINES: -Utilize peripheral IVs, RIJ central line placed CC time 45 min Chloé Wisdom MD Jul 10, 2016 07:31
[2016-07-10] MEDS: PANTOPRAZOLE SODIUM 40 MG VIAL IV SCH (08:19)
[2016-07-10] MEDS: DOCUSATE SODIUM 50 MG/SENNA 8.6 MG TAB PO SCH ×2 (08:19→20:52)
--- NOTE | 2016-07-10 08:25 | HHI.PR ---
Subjective Remarks POD 16 s/p TVHBSO A/P and sling procedure co morbidities were chronic back pain and use of lortabs and bezno's long smoking history COPD Came in yesterday in severe respiratory distress due to pneumonia and what appears on CT to be a cuff abcess. Likely she did not ambulate or breathe deeply due to pelvic discomfort and the pneumonia developed. She had a low blood pressure perioperatively and I had given her a medrol dose pack Tuesday. She has been grossly incontinent with her deep cough which is not unexpected. She has a arroyo in place. Her pelvic and abdominal exam Tuesday and Tuesday were benign. CT shows multiloculated mass behind bladder that should be amenable to antibiotics. She states she has coughed more in the last 12 hours than she has since surgery. It is very productive and deep cough. She is very hungry. She is breathing much more comfortably on the rebreather. She is uncomfortable from the recently placed central line. SHe does not complain of pain or anxiety. Objective Vital Signs Vital Signs Date Time Temp Pulse Resp B/P Pulse Ox O2 Delivery O2 Flow Rate FiO2 07/10/16 06:00 61 07/10/16 04:00 63 07/10/16 04:00 97.6 86 22 101/60 94 07/10/16 02:00 66 07/10/16 00:00 74 07/10/16 00:00 97.7 74 28 89/56 91 07/09/16 22:00 81 07/09/16 20:12 95 Venturi Mask 6.00 50 07/09/16 20:00 97.7 72 21 92/52 94 07/09/16 20:00 72 07/09/16 18:00 79 07/09/16 16:00 85 07/09/16 16:00 97.6 85 27 93/52 95 07/09/16 15:00 82 28 94 07/09/16 12:58 94 Venturi Mask 6.00 50 07/09/16 10:30 93 16 97/53 94 Venturi Mask 50 07/09/16 10:00 100.9 105 18 94/54 93 Venturi Mask 50 07/09/16 09:30 108 21 103/52 95 Venturi Mask 50 07/09/16 09:00 112 20 120/57 93 Non-Rebreather 8 07/09/16 08:47 96 Non-Rebreather 15.00 100 07/09/16 08:45 110 20 129/59 93 Non-Rebreather 8 07/09/16 08:30 22 78 Room Air 07/09/16 08:30 95 Non-Rebreather 15 07/09/16 08:29 103.0 128 20 98/73 78 I/O 07/09/16 07/09/16 07/09/16 07/10/16 07/10/16 07/10/16 07:00 15:00 23:00 07:00 15:00 23:00 Intake Total 4820 ml 4993 ml Output Total 1250 ml 1000 ml Balance 3570 ml 3993 ml Intake Oral 720 ml 360 ml IV Total 4100 ml 4633 ml Output Urine Total 1250 ml 1000 ml # Bowel Movements 0 0 Result Diagram: 07/10/16 0404 07/10/16 0404 Objective Remarks . Abdomen is soft and non-distended. perineum dry Ext neg Homans A & O x3 A/P Assessment and Plan Post Op Day 16 Rapid improvement with IV antibiotics and pulmonary toilet declines nicotine patch very hungry discussed need to ambulate and breath deeply worried about getting routine anxiety meds I am OK with diet as tolerated (abcess likely will resolve with antibiotics) Must breath deep and ambulate find compromise between perceived need for benzo's and opioid and need to breath deep and keep her BP up. leave arroyo in one more day because the valsalva from the cough is not ideal for her recent urethropexy. Isabelle Faust MD Jul 10, 2016 08:25
[2016-07-10] MEDS: ALPRAZolam 0.5 MG TAB PO PRN ×2 (09:02→21:44)
[2016-07-10] MEDS ORDERED: PNEUMOCOCCAL POLYVALENT INJ 25 MCG/0.5 ML SYR IM ONE (10:00)
[2016-07-10] MEDS: VANCOMYCIN INJ 1,250 MG in SODIUM CHLOR 0.9% 250 ML INJ 250 ML IV SCH ×2 (11:05→21:55)
[2016-07-10] MEDS: SODIUM CHLOR 0.9% 1000 ML INJ 1,000 ML IV SCH ×2 (11:06→21:42)
[2016-07-10] MEDS: ENOXAPARIN SODIUM 40 MG/0.4 ML SYRINGE SQ SCH (12:01)
[2016-07-10] MEDS: AZITHROMYCIN INJ 500 MG in SODIUM CHLOR 0.9% 250 ML INJ 250 ML IV SCH (12:01)
--- NOTE | 2016-07-10 14:20 | HHI.PR ---
Subjective Remarks Called by Margaret's RN at Nkechi' request. Margaret had the impression I planned to increase the frequency and dosage of her opioids because she always has pain and that I did not want her increasing activity. Together we spoke with Margaret and now realized that she takes 30 mg lortab each day for her chronic back pain. Her significant other also corrected the smoking amount from 1/2 to one and 1/2 PPD. We discussed increasing the frequency of her hydrocodone to cover her opioid debt (chronic use that needs coverage before pain managed) and use non opioid medications. She will get at 21 mg nicotine patch. We discussed her pressure sores and need to move. She will get an incentive spirometer and she will spend significant time in the chair. Objective Vital Signs Vital Signs Date Time Temp Pulse Resp B/P Pulse Ox O2 Delivery O2 Flow Rate FiO2 07/10/16 12:00 66 07/10/16 12:00 66 22 98/56 93 07/10/16 11:30 63 07/10/16 11:30 63 21 102/57 95 07/10/16 11:00 66 23 93/55 92 07/10/16 11:00 66 07/10/16 10:37 74 24 91/55 93 07/10/16 10:37 74 07/10/16 10:30 75 24 93/52 92 07/10/16 10:30 75 07/10/16 10:00 79 07/10/16 10:00 79 07/10/16 10:00 79 26 101/61 93 07/10/16 10:00 79 26 101/61 93 07/10/16 09:30 87 07/10/16 09:30 87 29 100/59 91 07/10/16 09:30 87 07/10/16 09:30 87 29 100/59 91 07/10/16 09:00 84 07/10/16 09:00 84 07/10/16 09:00 84 24 93/52 92 07/10/16 09:00 84 24 93/52 92 07/10/16 08:30 76 07/10/16 08:30 76 24 99/54 94 07/10/16 08:30 93 Venturi Mask 6.00 50 07/10/16 08:30 76 24 99/54 94 07/10/16 08:30 76 07/10/16 08:00 83 25 98/57 93 07/10/16 08:00 83 25 98/57 93 07/10/16 08:00 83 07/10/16 08:00 83 07/10/16 06:00 61 07/10/16 04:00 63 07/10/16 04:00 97.6 86 22 101/60 94 07/10/16 02:00 66 07/10/16 00:00 74 07/10/16 00:00 97.7 74 28 89/56 91 07/09/16 22:00 81 07/09/16 20:12 95 Venturi Mask 6.00 50 07/09/16 20:00 97.7 72 21 92/52 94 07/09/16 20:00 72 07/09/16 18:00 79 07/09/16 16:00 85 07/09/16 16:00 97.6 85 27 93/52 95 07/09/16 15:00 82 28 94 I/O 07/09/16 07/09/16 07/09/16 07/10/16 07/10/16 07/10/16 07:00 15:00 23:00 07:00 15:00 23:00 Intake Total 4820 ml 4993 ml Output Total 1250 ml 1000 ml Balance 3570 ml 3993 ml Intake Oral 720 ml 360 ml IV Total 4100 ml 4633 ml Output Urine Total 1250 ml 1000 ml # Bowel Movements 0 0 Result Diagram: 07/10/16 0404 07/10/16 0404 Objective Remarks . Abdomen is soft and non-distended. perineum dry Ext neg Homans A & O x3 A/P Assessment and Plan Post Op Day 16 Rapid improvement with IV antibiotics and pulmonary toilet declines nicotine patch very hungry discussed need to ambulate and breath deeply worried about getting routine anxiety meds I am OK with diet as tolerated (abcess likely will resolve with antibiotics) Must breath deep and ambulate find compromise between perceived need for benzo's and opioid and need to breath deep and keep her BP up. leave arroyo in one more day because the valsalva from the cough is not ideal for her recent urethropexy. Isabelle Faust MD Jul 10, 2016 14:20
[2016-07-10] MEDS ORDERED: ACETAMINOPHEN 1000 MG/100 ML VIAL IV ONE ×2 (14:30→15:00)
[2016-07-10] MEDS ORDERED: ACETAMINOPHEN/HYDROcodone 325 MG/7.5 MG TAB PO PRN (14:30)
[2016-07-10] MEDS: ACETAMINOPHEN/HYDROcodone 325 MG/7.5 MG TAB PO PRN ×2 (14:52→23:01)
[2016-07-10] MEDS: NICOTINE 21 MG/24 HR PATCH T-DERMAL SCH (15:07)
[2016-07-10] MEDS: NYSTATIN 100,000 U/GM PWD 15 GM BTL TOPICAL SCH ×2 (15:59→21:40)
--- NOTE | 2016-07-10 16:29 | PD.ID.CON ---
History of Present Illness Service ID Consult Requested By Reason for Consult Evaluation and Mment of HCAP and possible Intra-abdominal abscess. Primary Care Physician Non-Staff Diagnoses: History of Present Illness is a 55 y/o CF with PMHx of COPD, tobacco abuse, dyslipidemia and anxiety who had undergone total vaginal hysterectomy with BSO, Ant repair on . Patent reports post discharge she felt ok for a day or two after which she developed fevers 104 F with occ chills, body ache, backache, suprapubic pain and RLQ pain. She endorses nausea but no vomiting. She subsequently developed a cough with no phlegm. She was brought to the [place] ER for shortness of of breath and productive cough with clear colored phlegm. On arrival patient had temperature of 103. She has history of COPD. Initial oxygen saturation of 79%, tachycardic in the 120s. Patient reports having a hysterectomy 2 weeks ago but has no vaginal discharge or bleeding or significant pelvic pain. Blood cultures were sent before initiating antibiotics. WBC count 15.6 with 96% neutrophils. Chest x-ray did not show significant consolidation, however CT of the chest showed bibasilar infiltrates consistent with pneumonia. Patient underwent sepsis workup with cultures and was started on empiric antibiotics. Patient underwent a CT A/P which showed a fluid collection in the abdomen. From review of notes no plans for any surgical or IR intervention and continue IV antibiotics. At time of my evaluation, patient is in the ICU. She has had periods of hypothermia but not on pressors. She has a arroyo left in place for healing of ureteropexy per [facility] notes. UO is good. She is mentating fairly well and her only complaint is abdominal pain. She denies any nausea or vomiting. Tmax 103 and temps appear defervescing. ID is consulted for evaluation and Mment of HCAP and possible Intra abdominal abscess. Review of Systems ROS Limitations: Poor Historian Constitutional: COMPLAINS OF: Fever, Chills, DENIES: Diaphoretic episodes, Fatigue, Weight gain, Weight loss, Dizziness, Change in appetite, Night Sweats Endocrine: DENIES: Abnorml menstrual pattern, Heat/cold intolerance, Polydipsia , Polyuria, Polyphagia Eyes: DENIES: Blurred vision, Diplopia, Eye inflammation, Eye pain, Vision loss , Photosensitivity, Double Vision Ears, nose, mouth, throat: DENIES: Tinnitus, Hearing loss, Vertigo, Nasal discharge, Oral lesions, Throat pain, Hoarseness, Ear Pain, Running Nose, Epistaxis, Sinus Pain, Toothache, Odynophagia Respiratory: COMPLAINS OF: Cough, DENIES: Apneas, Snoring, Wheezing, Hemoptysis, Sputum production, Shortness of breath Cardiovascular: DENIES: Chest pain, Palpitations, Syncope, Dyspnea on Exertion , PND, Lower Extremity Edema, Orthopnea, Claudication Gastrointestinal: COMPLAINS OF: Abdominal pain, Nausea, DENIES: Black stools, Bloody stools, Constipation, Diarrhea, Vomiting, Difficulty Swallowing, Anorexia Genitourinary: DENIES: Abnormal vaginal bleeding, Dysmenorrhea, Dyspareunia, Sexual dysfunction, Urinary frequency, Urinary incontinence, Urgency, Hematuria , Dysuria, Nocturia, Vaginal discharge Musculoskeletal: DENIES: Joint pain, Muscle aches, Stiffness, Joint Swelling, Back pain, Neck pain Integumentary: DENIES: Abnormal pigmentation, Pruritus, Rash, Nail changes, Breast masses, Breast skin changes, Nipple discharge Hematologic/lymphatic: DENIES: Bruising, Lymphadenopathy Immunologic/allergic: DENIES: Eczema, Urticaria Neurologic: DENIES: Abnormal gait, Headache, Localized weakness, Paresthesias, Seizures, Speech Problems, Tremor, Poor Balance Psychiatric: DENIES: Anxiety, Confusion, Mood changes, Depression, Hallucinations, Agitation, Suicidal Ideation, Homicidal Ideation, Delusions Except as stated in HPI: all other systems reviewed are Neg Past Family Social History Allergies: Coded Allergies: No Known Allergies (Unverified , 06/24/16) Past Medical History COPD Anxiety Tobacco abuse Dyslipidemia Past Surgical History s/p total vaginal hysterectomy with bso, Ant repair 06/24/16 Reported Medications Last Impressions Chest X-Ray 07/10/16 0000 Signed Impressions: Service Date/Time: Sunday, July 10, 2016 02:44 - CONCLUSION: Line place and no pneumothorax, however interval development of interstitial edema. Amber De Oliveira MD Chest CT 07/09/16 0000 Signed Impressions: Service Date/Time: Saturday, July 09, 2016 11:02 - CONCLUSION: 1. Bilateral lower lobe dependent atelectasis versus consolidation indicating possible aspiration. 2. 9 x 5 mm nodular density abutting the right major fissure in the right midlung. Recommend three-month followup noncontrast chest CT. Tomas Clark MD Abdomen/Pelvis CT 07/09/16 0000 Signed Impressions: Service Date/Time: Saturday, July 09, 2016 17:20 - CONCLUSION: 1. Extraluminal gas and fluid collection in the central pelvis. The most likely etiology in a patient of this age would be subacute diverticulitis with subsequent abscess formation. The gas and fluid collection is also adjacent to a loop of thickened small bowel. Inflammatory bowel disease would also be in the differential diagnosis. 2. Right-sided sacral and pubic rami insufficiency fractures likely subacute chronic. 3. Prominent bilateral lower lobe pulmonary consolidation oTmas Clark MD ADDENDUM: Additional clinical data is now available. This patient underwent a hysterectomy 2 weeks ago. The air and fluid within the pelvis is felt to relate to postoperative infection as opposed to an acute diverticulitis. Although there is some liquefaction there are multiple small pockets of air and no large drainable collection. I feel there is incomplete liquefaction at this point. If symptoms persist a followup CT can be performed to see if there is a drainable collection at that time. I do not see anything to suggest bowel or bladder injury. I spoke with and Dr Faust concerning this. Orlin Santana Jr., MD Active Ordered Medications Current Medications Medications (Trade) Dose Ordered Sig/Patti Route Start Time Stop Time Status Last Admin Sodium Chloride 2 ml 2 ml UNSCH PRN IVF 07/09/16 08:45 (NS 1000 ml Inj) 1,000 ml @ 84 mls/hr [id number] IV 07/09/16 10:40 07/10/16 11:06 (Tylenol) 650 mg Q6H PRN PO 07/09/16 10:45 (Protonix Inj) 40 mg DAILY IV 07/09/16 10:45 07/10/16 08:19 (Lovenox Inj) 40 mg Q24H SQ 07/09/16 12:00 07/10/16 12:01 Miscellaneous Information 1 [id number] XX 07/09/16 10:45 07/09/16 15:21 (Chlorhexidine 2% Cloth) 3 pack Taper DAILY@04 TOP 07/10/16 04:00 07/06/17 03:59 07/10/16 03:30 (Chlorhexidine 2% Cloth) 3 pack UNSCH PRN TOP 07/09/16 10:45 (Dayan-Colace) 1 tab BID PO 07/09/16 21:00 07/10/16 08:19 (Milk Of Magnesia Liq) 30 ml Q12H PRN PO 07/09/16 10:45 (Senokot) 17.2 mg Q12H PRN PO 07/09/16 10:45 (Dulcolax Supp) 10 mg DAILY PRN RECTAL 07/09/16 10:45 (Lactulose Liq) 30 ml DAILY PRN PO 07/09/16 10:45 07/10/16 08:19 Methylprednisolone Sodium Succinate 60 mg 60 mg Q8HR IV PUSH 07/09/16 14:00 07/10/16 13:50 (Zithromax Inj/ NS 250 ml Inj) 250 ml @ 250 mls/hr Q24H IV 07/09/16 11:00 07/10/16 12:01 Alprazolam 0.5 mg 0.5 mg Q8H PRN PO 07/09/16 14:30 07/10/16 09:02 Potassium Chloride 100 ml @ 50 mls/hr Q2H PRN IV 07/09/16 14:30 (KCl 20 Meq Premix Inj) 100 ml @ 50 mls/hr Q2H PRN IV 07/09/16 14:30 Potassium Bicarb/ Potassium Chloride 50 meq 50 meq UNSCH PRN PO 07/09/16 14:30 Potassium Chloride 100 ml @ 25 mls/hr UNSCH PRN IV 07/09/16 14:30 07/10/16 06:39 Potassium Chloride 100 ml @ 50 mls/hr Q2H PRN IV 07/09/16 14:30 (Magnesium Sulfate Inj/NS Inj) 100 ml @ 50 mls/hr UNSCH PRN IV 07/09/16 14:30 Magnesium Oxide 800 mg 800 mg UNSCH PRN PO 07/09/16 14:30 (Magnesium Sulfate Inj/NS Inj) 100 ml @ 50 mls/hr UNSCH PRN IV 07/09/16 14:30 Potassium Phosphate 2000 mg 2,000 mg Q4H PRN PO 07/09/16 14:30 (Sodium Phosphate Inj/NS 250 ml Inj) 250 ml @ 42 mls/hr UNSCH PRN IV 07/09/16 14:30 Potassium Phosphate 2000 mg 2,000 mg UNSCH PRN PO/TUBE 07/09/16 14:20 Potassium Phosphate 30 mmol/ Sodium Chloride 260 ml @ 42 mls/hr UNSCH PRN IV 07/09/16 14:20 Piperacillin Sod/ Tazobactam Sod 100 ml @ 200 mls/hr Q6H IV 07/09/16 16:00 07/10/16 14:53 Norepinephrine Bitartrate 250 ml @ 0 mls/hr TITRATE IV 07/10/16 02:00 07/10/16 02:59 Pharmacy Profile Note 0 ml @ 0 mls/hr UNSCH OTHER 07/10/16 07:30 (Vancomycin Inj/ NS 250 ml Inj) 262.5 ml @ 250 mls/hr Q12H IV 07/10/16 10:00 07/10/16 11:05 Miscellaneous Information SPECIFIC LAB TO BE DRAWN:VANCO TROUGH DATE... ONCE ONCE .XX 07/11/16 09:45 07/11/16 09:46 ([place] 7.5-325 Mg) 1 tab Q4H PRN PO 07/10/16 14:30 07/10/16 14:52 (Mycostatin Powder) 1 applic Q8HR TOPICAL 07/10/16 15:30 07/10/16 15:59 (Habitrol 21 Mg Patch.24 Hr) 1 patch DAILY T-DERMAL 07/10/16 14:30 07/10/16 15:07 Miscellaneous Information 1 DAILY T-DERMAL 07/11/16 09:00 Family History reviewed and NC Social History 1 pack cig per day Alcohol use Physical Exam Vital Signs Vital Signs Date Time Temp Pulse Resp B/P Pulse Ox O2 Delivery O2 Flow Rate FiO2 07/10/16 14:00 74 07/10/16 13:38 83 07/10/16 13:00 68 07/10/16 12:30 60 07/10/16 12:00 66 07/10/16 12:00 66 22 98/56 93 07/10/16 12:00 66 07/10/16 11:30 63 07/10/16 11:30 63 07/10/16 11:30 63 21 102/57 95 07/10/16 11:00 66 07/10/16 11:00 66 23 93/55 92 07/10/16 11:00 66 07/10/16 10:37 74 07/10/16 10:37 74 24 91/55 93 07/10/16 10:37 74 07/10/16 10:30 75 24 93/52 92 07/10/16 10:30 75 07/10/16 10:30 75 07/10/16 10:00 79 07/10/16 10:00 79 07/10/16 10:00 79 07/10/16 10:00 79 26 101/61 93 07/10/16 10:00 79 26 101/61 93 07/10/16 09:30 87 07/10/16 09:30 87 29 100/59 91 07/10/16 09:30 87 07/10/16 09:30 87 29 100/59 91 07/10/16 09:30 87 07/10/16 09:00 84 07/10/16 09:00 84 07/10/16 09:00 84 07/10/16 09:00 84 24 93/52 92 07/10/16 09:00 84 24 93/52 92 07/10/16 08:30 76 07/10/16 08:30 76 07/10/16 08:30 76 24 99/54 94 07/10/16 08:30 93 Venturi Mask 6.00 50 07/10/16 08:30 76 24 99/54 94 07/10/16 08:30 76 07/10/16 08:00 83 25 98/57 93 07/10/16 08:00 83 25 98/57 93 07/10/16 08:00 83 07/10/16 08:00 83 07/10/16 08:00 83 07/10/16 06:00 61 07/10/16 04:00 63 07/10/16 04:00 97.6 86 22 101/60 94 07/10/16 02:00 66 07/10/16 00:00 74 07/10/16 00:00 97.7 74 28 89/56 91 07/09/16 22:00 81 07/09/16 20:12 95 Venturi Mask 6.00 50 07/09/16 20:00 97.7 72 21 92/52 94 07/09/16 20:00 72 07/09/16 18:00 79 Physical Exam GENERAL: This is a well-nourished, well-developed patient, in no apparent distress. SKIN: No rashes, ecchymoses or lesions. Cool and dry. HEAD: Atraumatic. Normocephalic. No temporal or scalp tenderness. EYES: Pupils equal round and reactive. Extraocular motions intact. No scleral icterus. No injection or drainage. ENT: Nose without bleeding, purulent drainage or septal hematoma. Throat without erythema, tonsillar hypertrophy or exudate. Uvula midline. Airway patent. NECK: Trachea midline. Supple, nontender, no meningeal signs. CARDIOVASCULAR: Regular rate and rhythm without murmurs, gallops, or rubs. RESPIRATORY: Clear to auscultation. Breath sounds equal bilaterally. No wheezes , rales, or rhonchi. GASTROINTESTINAL: Abdomen soft, non-tender, nondistended. MUSCULOSKELETAL: Extremities without clubbing, cyanosis, or edema. NEUROLOGICAL: Awake and alert. Grossly non focal Psych: cooperative IV line sites with no e.o infection. Laboratory Laboratory Tests Test 07/10/16 04:04 White Blood Count 18.1 Red Blood Count 3.14 Hemoglobin 9.4 Hematocrit 28.5 Mean Corpuscular Volume 90.7 Mean Corpuscular Hemoglobin 29.9 Mean Corpuscular Hemoglobin 33.0 Concent Red Cell Distribution Width 14.5 Platelet Count 315 Mean Platelet Volume 7.2 Neutrophils (%) (Auto) 92.4 Lymphocytes (%) (Auto) 5.8 Monocytes (%) (Auto) 1.6 Eosinophils (%) (Auto) 0.1 Basophils (%) (Auto) 0.1 Neutrophils # (Auto) 16.8 Lymphocytes # (Auto) 1.0 Monocytes # (Auto) 0.3 Eosinophils # (Auto) 0.0 Basophils # (Auto) 0.0 CBC Comment DIFF FINAL Differential Comment Sodium Level 145 Potassium Level 3.3 Chloride Level 114 Carbon Dioxide Level 20.7 Anion Gap 10 Blood Urea Nitrogen 10 Creatinine 0.59 Estimat Glomerular Filtration 105 Rate Random Glucose 192 Calcium Level 7.5 Magnesium Level 2.1 Total Bilirubin 0.3 Aspartate Amino Transf 28 (AST/SGOT) Alanine Aminotransferase 23 (ALT/SGPT) Alkaline Phosphatase 212 Total Protein 5.7 Albumin 1.9 Date/Time Procedure Status Source Growth 07/09/16 21:00 Gram Stain - Final Resulted Sputum Expectorated Sputum 07/09/16 21:00 Sputum Culture Resulted Sputum Expectorated Sputum Pending 07/09/16 09:40 Urine Culture - Preliminary Resulted Urine Clean Catch <10,000 CFU/ML GRAM POSITIVE SONYA 07/09/16 09:40 Cancelled Urine Clean Catch 07/09/16 08:40 Aerobic Blood Culture - Preliminary Resulted Blood Peripheral NO GROWTH IN 1 DAY 07/09/16 08:40 Anaerobic Blood Culture - Preliminary Resulted Blood Peripheral NO GROWTH IN 1 DAY Result Diagram: 07/10/16 0404 07/10/16 0404 Imaging Last Impressions Chest X-Ray 07/10/16 0000 Signed Impressions: Service Date/Time: Sunday, July 10, 2016 02:44 - CONCLUSION: Line place and no pneumothorax, however interval development of interstitial edema. Amber De Oliveira MD Chest CT 07/09/16 0000 Signed Impressions: Service Date/Time: Saturday, July 09, 2016 11:02 - CONCLUSION: 1. Bilateral lower lobe dependent atelectasis versus consolidation indicating possible aspiration. 2. 9 x 5 mm nodular density abutting the right major fissure in the right midlung. Recommend three-month followup noncontrast chest CT. Tomas Clark MD Abdomen/Pelvis CT 07/09/16 Signed Impressions: Service Date/Time: Saturday, July 09, 2016 17:20 - CONCLUSION: 1. Extraluminal gas and fluid collection in the central pelvis. The most likely etiology in a patient of this age would be subacute diverticulitis with subsequent abscess formation. The gas and fluid collection is also adjacent to a loop of thickened small bowel. Inflammatory bowel disease would also be in the differential diagnosis. 2. Right-sided sacral and pubic rami insufficiency fractures likely subacute chronic. 3. Prominent bilateral lower lobe pulmonary consolidation Tomas Clark MD ADDENDUM: Additional clinical data is now available. This patient underwent a hysterectomy 2 weeks ago. The air and fluid within the pelvis is felt to relate to postoperative infection as opposed to an acute diverticulitis. Although there is some liquefaction there are multiple small pockets of air and no large drainable collection. I feel there is incomplete liquefaction at this point. If symptoms persist a followup CT can be performed to see if there is a drainable collection at that time. I do not see anything to suggest bowel or bladder injury. I spoke with and Dr Faust concerning this. Orlin Santana Jr., MD Assessment and Plan Assessment and Plan Sepsis present on admission Possible HCAP (pneumonia after recent procedure) Possible Intra abdominal abscess. Total vaginal hysterectomy with BSO, Ant repair on 06/24/16 COPD acute exacerbation Anxiety Hypoalbuminemia Recs: Continue Zosyn IV Continue Vanco IV (target 15-20) Continue Azithro ok to change to oral (plan on 5 days) Follow cultures Follow clinically. Ann Abraham MD Jul 10, 2016 16:29
[2016-07-11] VITALS (14 sets, daily range): BP systolic 109–141; BP diastolic 59–82; PULSE 63–89; RESP 16–29; TEMP 97.5–98.1; O2SAT 90–96
[2016-07-11] MEDS: CHLORHEXIDINE GLUCONATE 2 % 1 PACK (2 CLOTHS) TOP SCH (04:00)
[2016-07-11] MEDS: PIPERACIL-TAZO 4.5 GM PREMIX 100 ML IV SCH ×2 (04:23→09:44)
[2016-07-11] MEDS: ACETAMINOPHEN/HYDROcodone 325 MG/7.5 MG TAB PO PRN ×4 (04:24→22:13)
[2016-07-11] MEDS: RESP: ALBUTEROL 2.5 MG/IPRATROPIUM 0.5 MG NEB (SCH) INH ×4 (04:28→20:59)
[2016-07-11 05:58] LABS: AUTOMATED NEUTROPHIL # 15.7 TH/MM3 (1.8-7.7); BASOPHIL % 0.1 % (0.0-2.0); HEMATOCRIT 29.2 % (35.0-46.0); HEMO FLAGS DIFF FINAL; LYMPH % 7.2 % (9.0-44.0); LYMPHOCYTE # 1.2 TH/MM3 (1.0-4.8); MEAN CELL VOLUME 90.2 FL (80.0-100.0); MEAN CORPUSCULAR HEMOGLOBIN 28.7 PG (27.0-34.0); MEAN CORPUSCULAR HGB CONC 31.8 % (32.0-36.0); MONO % 2.9 % (0.0-8.0); NEUT % 89.8 % (16.0-70.0); PLATELET COUNT 334 TH/MM3 (150-450); RED BLOOD COUNT 3.23 MIL/MM3 (4.00-5.30); RED CELL DISTRIBUTION WIDTH 14.5 % (11.6-17.2); WHITE BLOOD COUNT 17.5 TH/MM3 (4.0-11.0)
[2016-07-11 06:10] LABS: ALKALINE PHOSPHATASE 209 U/L (45-117); ALT (GPT) 33 U/L (10-53); ANION GAP 8 MEQ/L (5-15); AST (GOT) 24 U/L (15-37); BICARBONATE 25.6 MEQ/L (21.0-32.0); BLOOD UREA NITROGEN 15 MG/DL (7-18); CHLORIDE 113 MEQ/L (98-107); GLOMERULAR FILTRATION RATE 144 ML/MIN (>89); MAGNESIUM 2.2 MG/DL (1.5-2.5); POTASSIUM 3.7 MEQ/L (3.5-5.1); SODIUM (NA) 147 MEQ/L (136-145); TOTAL BILIRUBIN ADULT 0.3 MG/DL (0.2-1.0)
[2016-07-11] MEDS: methylPREDNISolone SOD SUCC 125 MG/2 ML VIAL IV PUSH SCH (06:24)
[2016-07-11] MEDS: NYSTATIN 100,000 U/GM PWD 15 GM BTL TOPICAL SCH ×3 (06:24→22:00)
[2016-07-11] MEDS: DOCUSATE SODIUM 50 MG/SENNA 8.6 MG TAB PO SCH ×2 (07:30→20:06)
[2016-07-11] MEDS: REMOVE OLD PATCH T-DERMAL SCH (07:54)
[2016-07-11] MEDS: PANTOPRAZOLE SODIUM 40 MG VIAL IV SCH (07:54)
[2016-07-11] MEDS: NICOTINE 21 MG/24 HR PATCH T-DERMAL SCH (07:54)
[2016-07-11] MEDS: AZITHROMYCIN 250 MG TAB PO SCH (07:55)
[2016-07-11] MEDS: ALPRAZolam 0.5 MG TAB PO PRN ×2 (08:02→20:05)
[2016-07-11] MEDS: VANCOMYCIN INJ 1,250 MG in SODIUM CHLOR 0.9% 250 ML INJ 250 ML IV SCH (09:44)
[2016-07-11] MEDS ORDERED: PHARMACY ORDERED LAB ONE (09:45)
[2016-07-11] MEDS: SODIUM CHLOR 0.9% 1000 ML INJ 1,000 ML IV SCH (09:45)
[2016-07-11] MEDS ORDERED: LOPERAMIDE HCL 2 MG CAP PO ONE (10:15)
--- NOTE | 2016-07-11 10:15 | PD.TRANSFR ---
Transfer Summary Admission Date Jul 09, 2016 at 10:38 Admitting Diagnosis acute hypoxic resp failure,COPD,bronchitis Diagnoses: (1) Severe sepsis Diagnosis: Principal (2) Acute respiratory failure with hypoxia Diagnosis: Principal (3) COPD exacerbation Diagnosis: Principal (4) HCAP (healthcare-associated pneumonia) Diagnosis: Principal (5) Lower abdominal pain Diagnosis: Principal (6) Status post vaginal hysterectomy Diagnosis: Secondary (7) COPD (chronic obstructive pulmonary disease) Diagnosis: Secondary Transfer Summary/Subjective Patient is a 55-year-old female with past medical history significant for COPD, tobacco abuse, dyslipidemia and anxiety who had undergone TVH, BSO, A/P repair and urethropexy on 06/24/16. She was brought to the [place] ER for shortness of of breath and productive cough with clear colored phlegm. On arrival patient had temperature of 103. She has history of COPD. Initial oxygen saturation of 79%, tachycardic in the 120s. Patient reports having a hysterectomy 2 weeks ago but has no vaginal discharge or bleeding or significant pelvic pain. After establishing IV line patient had 2 L normal saline bolus and IV Zosyn. Blood cultures were sent before initiating antibiotics. WBC count 15.6 with 96% neutrophils. Chest x-ray did not show significant consolidation, however CT of the chest showed bibasilar infiltrates consistent with pneumonia. Patient received 3 DuoNeb breathing treatments and IV Solu-Medrol and was placed on nonrebreather with improvement in saturation. I evaluated the patient in the ICU. She appears critically ill. Subjectively she feels that breathing might have improved slightly. Patient do complain of lower abdominal pain now SUBJ 07/10: CT chest showed evidence of bibasilar pneumonia, CT abdomen pelvis showed evidence of possible pelvic abscess. With recent surgery this could indicate postop infection, Dr. Faust from [facility] consulted-recommends continued medical management at this time with no surgery. Started on Levophed for septic shock, currently off as MAP >65 07/11: Patient is sitting up in chair blood pressure stable. No fever white count trending down. Off pressors since 24 hours Objective Vital Signs Date Time Temp Pulse Resp B/P Pulse Ox O2 Delivery O2 Flow Rate FiO2 07/11/16 08:00 89 07/11/16 08:00 97.9 19 129/59 92 07/11/16 07:37 Nasal Cannula 4.00 07/10/16 08:30 50 Intake and Output 07/10/16 07/10/16 07/11/16 08:00 16:00 00:00 Intake Total 4993 ml 1447 ml 538 ml Output Total 1000 ml 900 ml 450 ml Balance 3993 ml 547 ml 88 ml Result Diagram: 07/11/16 0320 07/11/[address] chest bibasilar pneumonia Objective Remarks GENERAL: 55 yo female who is critically ill, sitting up in chair today SKIN: Skin is Warm and dry. HEAD: Atraumatic. Normocephalic. EYES: Pupils equal and round. No scleral icterus. No injection or drainage. ENT: No nasal bleeding or discharge. Mucous membranes pink and moist. NECK: Trachea midline. No JVD. CARDIOVASCULAR: Sinus rhythm. No murmur appreciated. Tachycardic RESPIRATORY: Mild rhonchi and wheezes. Basilar crackles GASTROINTESTINAL: Abdomen soft, bilateral lower quadrant tenderness. MUSCULOSKELETAL: No obvious deformities. No clubbing. No cyanosis. No edema. NEUROLOGICAL: Awake and alert. No obvious cranial nerve deficits. Motor grossly within normal limits. Normal speech. Pelvic (Done on admission by ER physician): Speculum exam showed no dehiscence of the vaginal vault. No tenderness or discharge in the vault Urinary Catheter: Yes Assessment to: Continue A/P Assessment and Plan NEURO: Anxiety disorder -Xanax 0.5 mg by mouth twice a day for anxiety -Continue hydrocodone for pain RESP: Acute hypoxemic respiratory failure-resolved Healthcare associated pneumonia COPD exacerbation -Currently on NC, use BiPAP as needed -Broad-spectrum antibiotics with Zosyn and azithromycin and vancomycin -IV Solu-Medrol 60 mg every 8 hours-reduce to 40 q12 -DuoNeb every 4 hours scheduled and when necessary CV: Septic shock -Normal saline IV fluids total 4 L boluses and 84 mL per hour-change IV to KVO -Trend lactic acid - Levophed DCd GI: -Heart healthy diet -CT abd pelvis -Dr. Faust does not think there is an abscess -IV Protonix-DC today /[facility]: s/p TVH, BSO, A/P repair and urethropexy on 06/24/16 Possible pelvic abscess -CT abdomen pelvis- showed possible fluid collection posterior to the bladder, possible abscess -Dr. Faust recommends continued medical management, she does not think there is an abscess -Monitor renal function closely. ID: Severe sepsis Healthcare associated pneumonia Possible pelvic abscess and ?post op infection -IV vancomycin pharmacy to dose. Zosyn 4.5 g every 6 hours, azithromycin 500 mg daily -F/U Blood urine and sputum cultures -ID consulted-appreciate Dr. Abraham input -Dr. Faust recommends continued medical management, she does not think there is an abscess HEME: -Monitor CBC, CMP, coags ENDO: -Electrolyte replacement protocol, sliding scale insulin PROPH: -Bilateral lower extremity SCDs. Lovenox for DVT prophylaxis. IV Protonix 40 mg daily for GI prophylaxis LINES: -Utilize peripheral IVs, RIJ central line placed-DC today Level 3 Consult [facility] to assume care in am 07/12/16. Transfer to Med/Surg Chloé Wisdom MD Jul 11, 2016 10:15
--- NOTE | 2016-07-11 11:17 | HHI.PR ---
Subjective Remarks POD 18 Looks 100% better. on nasal canula and getting up in chair several hours pain in abdomen less doing better on new opioid regimen Objective Vital Signs Vital Signs Date Time Temp Pulse Resp B/P Pulse Ox O2 Delivery O2 Flow Rate FiO2 07/11/16 10:00 76 07/11/16 08:00 89 07/11/16 08:00 97.9 89 19 129/59 92 07/11/16 07:37 91 Nasal Cannula 4.00 07/11/16 07:00 71 26 125/68 90 07/11/16 06:00 70 07/11/16 05:24 20 07/11/16 04:00 97.9 79 20 136/67 93 07/11/16 04:00 79 07/11/16 02:00 64 07/11/16 00:00 81 07/11/16 00:00 98.1 81 18 116/82 91 07/10/16 22:00 60 07/10/16 20:00 97.8 81 23 112/61 89 07/10/16 20:00 81 07/10/16 19:43 97 Nasal Cannula 4.00 07/10/16 17:00 59 07/10/16 17:00 59 07/10/16 17:00 59 07/10/16 16:30 71 07/10/16 16:30 71 07/10/16 16:30 71 07/10/16 16:00 97.5 07/10/16 16:00 61 07/10/16 16:00 61 07/10/16 16:00 61 07/10/16 15:06 85 07/10/16 15:06 85 07/10/16 15:06 85 07/10/16 14:30 84 07/10/16 14:30 84 07/10/16 14:30 84 07/10/16 14:00 74 07/10/16 14:00 74 07/10/16 14:00 74 07/10/16 14:00 74 07/10/16 13:38 83 07/10/16 13:38 83 07/10/16 13:38 83 07/10/16 13:38 83 07/10/16 13:00 68 07/10/16 13:00 68 07/10/16 13:00 68 07/10/16 13:00 68 07/10/16 12:30 60 07/10/16 12:30 60 07/10/16 12:30 60 07/10/16 12:30 60 07/10/16 12:00 66 07/10/16 12:00 66 07/10/16 12:00 66 22 98/56 93 07/10/16 12:00 66 07/10/16 12:00 66 07/10/16 12:00 66 07/10/16 11:30 63 07/10/16 11:30 63 07/10/16 11:30 63 07/10/16 11:30 63 21 102/57 95 07/10/16 11:30 63 07/10/16 11:30 63 I/O 07/10/16 07/10/16 07/10/16 07/11/16 07/11/16 07/11/16 07:00 15:00 23:00 07:00 15:00 23:00 Intake Total 4993 ml 1447 ml 538 ml 1271 ml Output Total 1000 ml 900 ml 450 ml 554 ml Balance 3993 ml 547 ml 88 ml 717 ml Intake Oral 360 ml 870 ml 120 ml 80 ml IV Total 4633 ml 577 ml 418 ml 1191 ml Output Urine Total 1000 ml 900 ml 450 ml 550 ml Stool Total 4 ml # Bowel Movements 0 2 4 Result Diagram: 07/11/16 0320 07/11/16 0320 Objective Remarks urine clear. Abdomen is soft and non-distended. perineum dry Ext neg Homans A & O x3 A/P Assessment and Plan Post Op Day 16 Rapid improvement with IV antibiotics and pulmonary toilet declines nicotine patch very hungry discussed need to ambulate and breath deeply worried about getting routine anxiety meds CT in am of pelvis transfer to floor remove Isabelle Rolle MD Jul 11, 2016 11:17
[2016-07-11] MEDS: ENOXAPARIN SODIUM 40 MG/0.4 ML SYRINGE SQ SCH (11:20)
--- NOTE | 2016-07-11 12:54 | HHI.PR ---
Addendum to Inpatient Note Addendum Reason: Additional Documentation Additional Information Chart review note: Resp cultures normal resp renetta. DC Vanco IV Continue Zosyn IV Continue azithro oral. will transition to oral regimen in am if clinically continues to do well. Ann Abraham MD Jul 11, 2016 12:54
[2016-07-11] MEDS: AMOXICILLIN/CLAVULANATE K 500 MG TAB PO SCH ×2 (18:28→22:12)
[2016-07-11] MEDS: methylPREDNISolone SOD SUCC 40 MG/1 ML VIAL IV PUSH SCH (20:06)
[2016-07-11] MEDS: SODIUM CHLORIDE 0.9% FLUSH 10 ML FLUSH IVF PRN (20:06)
[2016-07-12] VITALS (9 sets, daily range): BP systolic 140–165; BP diastolic 66–85; PULSE 62–71; RESP 18–20; TEMP 97.3–97.8; O2SAT 90–98
[2016-07-12] MEDS: RESP: ALBUTEROL 2.5 MG/IPRATROPIUM 0.5 MG NEB (SCH) INH ×4 (03:38→20:10)
[2016-07-12] MEDS: ACETAMINOPHEN/HYDROcodone 325 MG/7.5 MG TAB PO PRN ×4 (03:57→18:54)
[2016-07-12] MEDS: CHLORHEXIDINE GLUCONATE 2 % 1 PACK (2 CLOTHS) TOP SCH (03:58)
[2016-07-12] MEDS: ALPRAZolam 0.5 MG TAB PO PRN ×3 (04:18→21:10)
[2016-07-12] MEDS: AMOXICILLIN/CLAVULANATE K 500 MG TAB PO SCH ×3 (05:45→21:10)
[2016-07-12] MEDS: NYSTATIN 100,000 U/GM PWD 15 GM BTL TOPICAL SCH ×3 (05:46→21:11)
--- NOTE | 2016-07-12 06:43 | RADRPT ---
EXAM DATE/TIME: 07/12/2016 05:50 [facility] COMPARISON: CHEST SINGLE AP, July 10, 2016, 2:44. INDICATIONS : Coughing, short of breath MEDICAL HISTORY : Chronic obstructive pulmonary disease. SURGICAL HISTORY : None. ENCOUNTER: Subsequent ACUITY: 4 - 6 days PAIN SCORE: 2/10 LOCATION: Bilateral chest FINDINGS: A single view of the chest demonstrates mild pulmonary vascular congestion. There small bilateral ple ural effusions. The cardiac silhouette remains enlarged. No visible pneumothorax.. Osseous structure s are intact. CONCLUSION: Diffuse pulmonary vascular congestion and cardiomegaly all suggest failure. Bilateral pleural effusio ns increased since the third. Silas Emery MD on July 12, 2016 at 6:40 Board Certified Radiologist. This report was verified electronically.
[2016-07-12 06:53] LABS: AUTOMATED NEUTROPHIL # 11.3 TH/MM3 (1.8-7.7); BASOPHIL # 0.1 TH/MM3 (0-0.2); BASOPHIL % 0.4 % (0.0-2.0); EOSINOPHIL % 0.2 % (0.0-4.0); LYMPH % 12.1 % (9.0-44.0); LYMPHOCYTE # 1.7 TH/MM3 (1.0-4.8); MEAN CELL VOLUME 90.1 FL (80.0-100.0); MEAN CORPUSCULAR HEMOGLOBIN 29.4 PG (27.0-34.0); MEAN CORPUSCULAR HGB CONC 32.7 % (32.0-36.0); MONO % 5.5 % (0.0-8.0); NEUT % 81.8 % (16.0-70.0); PLATELET COUNT 339 TH/MM3 (150-450); RED BLOOD COUNT 3.33 MIL/MM3 (4.00-5.30); RED CELL DISTRIBUTION WIDTH 14.8 % (11.6-17.2); WHITE BLOOD COUNT 13.8 TH/MM3 (4.0-11.0)
[2016-07-12 07:00] LABS: HEMO FLAGS AUTO DIFF
[2016-07-12 07:21] LABS: ALKALINE PHOSPHATASE 247 U/L (45-117); ALT (GPT) 55 U/L (10-53); ANION GAP 7 MEQ/L (5-15); AST (GOT) 59 U/L (15-37); BLOOD UREA NITROGEN 23 MG/DL (7-18); CHLORIDE 111 MEQ/L (98-107); GLOMERULAR FILTRATION RATE 147 ML/MIN (>89); MAGNESIUM 2.3 MG/DL (1.5-2.5); POTASSIUM 3.6 MEQ/L (3.5-5.1); SODIUM (NA) 145 MEQ/L (136-145); TOTAL BILIRUBIN ADULT 0.3 MG/DL (0.2-1.0)
--- NOTE | 2016-07-12 08:22 | HHI.PR ---
Subjective Remarks POD 19 HD 4 Transferred to [facility] and ambulating well. Complains of fatigue at end of visit became tearful saying that her back was hurting badly (this is a back condition before surgery and she was on 30 mg norco/24 hours routinely) pain in abdomen not mentioned Voiding well. Still working wrt respirations on nasal canula stated doing OK with nicotine patch (1 1/2 PPD prior to surgery) Objective Vital Signs Vital Signs Date Time Temp Pulse Resp B/P Pulse Ox O2 Delivery O2 Flow Rate FiO2 07/12/16 04:00 97.4 66 18 151/74 93 07/12/16 04:00 Nasal Cannula 3.00 07/12/16 00:00 Nasal Cannula 3.00 07/12/16 00:00 97.4 63 18 140/66 92 07/11/16 21:01 93 Nasal Cannula 4.00 07/11/16 20:00 Nasal Cannula 3.00 07/11/16 20:00 97.5 75 16 109/62 92 07/11/16 16:00 97.7 64 24 141/71 96 07/11/16 12:00 63 07/11/16 12:00 98.1 63 24 123/72 94 07/11/16 11:00 70 27 128/74 94 07/11/16 10:00 76 26 126/64 95 07/11/16 10:00 76 07/11/16 09:00 83 29 127/63 93 I/O 07/11/16 07/11/16 07/11/16 07/12/16 07/12/16 07/12/16 07:00 15:00 23:00 07:00 15:00 23:00 Intake Total 1271 ml 1150 ml 570 ml 360 ml Output Total 554 ml 403 ml Balance 717 ml 747 ml 570 ml 360 ml Intake Oral 80 ml 480 ml 570 ml 360 ml IV Total 1191 ml 670 ml Output Urine Total 550 ml 400 ml Stool Total 4 ml 3 ml # Voids 2 3 # Bowel Movements 1 1 Result Diagram: 07/12/16 0556 07/12/16 0556 Objective Remarks white count coming down sputum normal renetta one antibiotic stopped and hopefully transition to oral A/P Assessment and Plan Post Op Day19 Rapid improvement with IV antibiotics and pulmonary toilet Still SOB using nicotine patch white count down cultures negative complaining of terrible back pain--not entirely sure if medication seeking/ unrealistic expectations CT of pelvis today to see if abcess resolving start duloxetine for pain, depression and it can help with continence Isabelle Faust MD Jul 12, 2016 08:22
[2016-07-12 08:43] LABS: BANDS 6 % (0-6); METAMYELOCYTES 1 % (0-1); NEUTROPHIL # MANUAL DIFF 12.7 TH/MM3 (1.8-7.7); PLATELET ESTIMATE SMEAR NORMAL (NORMAL); PLATELET MORPHOLOGY NORMAL (NORMAL); POLYS (SEG NEUTROPHILS) 85 % (16-70); SCAN/DIFF FINAL DIFF MANUAL; WBC DIFF SAMPLE 100
[2016-07-12] MEDS: REMOVE OLD PATCH T-DERMAL SCH (09:00)
[2016-07-12] MEDS: DOCUSATE SODIUM 50 MG/SENNA 8.6 MG TAB PO SCH ×2 (09:00→21:00)
[2016-07-12] MEDS: AZITHROMYCIN 250 MG TAB PO SCH (09:18)
[2016-07-12] MEDS: methylPREDNISolone SOD SUCC 40 MG/1 ML VIAL IV PUSH SCH ×2 (09:18→21:11)
[2016-07-12] MEDS: NICOTINE 21 MG/24 HR PATCH T-DERMAL SCH (09:19)
[2016-07-12] MEDS: DULoxetine HCl DR 30 MG CAP PO SCH (09:42)
[2016-07-12] MEDS: ENOXAPARIN SODIUM 40 MG/0.4 ML SYRINGE SQ SCH (11:04)
--- NOTE | 2016-07-12 14:49 | HHI.IDPN ---
Subjective Subjective Remarks is a 55 y/o CF with PMHx of COPD, tobacco abuse, dyslipidemia and anxiety who had undergone total vaginal hysterectomy with BSO, Ant repair on . Patent reports post discharge she felt ok for a day or two after which she developed fevers 104 F with occ chills, body ache, backache, suprapubic pain and RLQ pain. She endorses nausea but no vomiting. She subsequently developed a cough with no phlegm. [facility] for shortness of of breath and productive cough with clear colored phlegm. On arrival patient had temperature of 103. She has history of COPD. Initial oxygen saturation of 79%, tachycardic in the 120s. Patient reports having a hysterectomy 2 weeks ago but has no vaginal discharge or bleeding or significant pelvic pain. Blood cultures were sent before initiating antibiotics. WBC count 15.6 with 96% neutrophils. Chest x-ray did not show significant consolidation, however CT of the chest showed bibasilar infiltrates consistent with pneumonia. Patient underwent sepsis workup with cultures and was started on empiric antibiotics. Patient underwent a CT A/P which showed a fluid collection in the abdomen. From review of notes no plans for any surgical or IR intervention and continue IV antibiotics. At time of my evaluation, patient is in the ICU. She has had periods of hypothermia but not on pressors. She has a arroyo left in place for healing of ureteropexy per [employer] notes. UO is good. She is mentating fairly well and her only complaint is abdominal pain. She denies any nausea or vomiting. Tmax 103 and temps appear defervescing. ID is consulted for evaluation and Mment of HCAP and possible Intra abdominal abscess. Overnight events reviewed No fevers No rash WBC decreasing Tolerating oral antibiotics. Complains of back pain. Per review of it appears pt was on chronic narcotics for back pain prior to this admission. Antibiotics Augmentin oral Azithro oral Lines Line sites with no e.o infection Past Medical History reviewed. Allergies: Coded Allergies: No Known Allergies (Unverified , 06/24/16) Objective . Vital Signs Date Time Temp Pulse Resp B/P Pulse Ox O2 Delivery O2 Flow Rate FiO2 07/12/16 12:00 97.3 68 18 153/77 92 07/12/16 09:55 98 Nasal Cannula 3.00 07/12/16 09:31 Nasal Cannula 3.00 07/12/16 08:00 97.8 63 18 147/85 93 07/12/16 04:00 97.4 66 18 151/74 93 07/12/16 04:00 Nasal Cannula 3.00 07/12/16 00:00 Nasal Cannula 3.00 07/12/16 00:00 97.4 63 18 140/66 92 07/11/16 21:01 93 Nasal Cannula 4.00 07/11/16 20:00 Nasal Cannula 3.00 07/11/16 20:00 97.5 75 16 109/62 92 07/11/16 16:00 97.7 64 24 141/71 96 07/11/16 07/11/16 07/12/16 15:00 23:00 07:00 Intake Total 1150 ml 570 ml 360 ml Output Total 403 ml Balance 747 ml 570 ml 360 ml Intake Oral 480 ml 570 ml 360 ml IV Total 670 ml Output Urine Total 400 ml Stool Total 3 ml # Voids 2 3 # Bowel Movements 1 1 . Laboratory Tests Test 07/11/16 07/12/16 03:20 05:56 White Blood Count 17.5 TH/MM3 13.8 TH/MM3 Red Blood Count 3.23 MIL/MM3 3.33 MIL/MM3 Hemoglobin 9.3 GM/DL 9.8 GM/DL Hematocrit 29.2 % 30.0 % Mean Corpuscular Volume 90.2 FL 90.1 FL Mean Corpuscular Hemoglobin 28.7 PG 29.4 PG Mean Corpuscular Hemoglobin 31.8 % 32.7 % Concent Red Cell Distribution Width 14.5 % 14.8 % Platelet Count 334 TH/MM3 339 TH/MM3 Mean Platelet Volume 7.5 FL 7.5 FL Neutrophils (%) (Auto) 89.8 % 81.8 % Lymphocytes (%) (Auto) 7.2 % 12.1 % Monocytes (%) (Auto) 2.9 % 5.5 % Eosinophils (%) (Auto) 0.0 % 0.2 % Basophils (%) (Auto) 0.1 % 0.4 % Neutrophils # (Auto) 15.7 TH/MM3 11.3 TH/MM3 Lymphocytes # (Auto) 1.2 TH/MM3 1.7 TH/MM3 Monocytes # (Auto) 0.5 TH/MM3 0.8 TH/MM3 Eosinophils # (Auto) 0.0 TH/MM3 0.0 TH/MM3 Basophils # (Auto) 0.0 TH/MM3 0.1 TH/MM3 CBC Comment DIFF FINAL AUTO DIFF Differential Comment FINAL DIFF MANUAL Differential Total Cells 100 Counted Neutrophils % (Manual) 85 % Band Neutrophils % 6 % Lymphocytes % 6 % Monocytes % 2 % Neutrophils # (Manual) 12.7 TH/MM3 Metamyelocytes 1 % Platelet Estimate NORMAL Platelet Morphology Comment NORMAL Red Cell Morphology Comment NORMAL Laboratory Tests Test 07/11/16 07/12/16 03:20 05:56 Sodium Level 147 MEQ/L 145 MEQ/L Potassium Level 3.7 MEQ/L 3.6 MEQ/L Chloride Level 113 MEQ/L 111 MEQ/L Carbon Dioxide Level 25.6 MEQ/L 27.0 MEQ/L Anion Gap 8 MEQ/L 7 MEQ/L Blood Urea Nitrogen 15 MG/DL 23 MG/DL Creatinine 0.45 MG/DL 0.44 MG/DL Estimat Glomerular Filtration 144 ML/MIN 147 ML/MIN Rate Random Glucose 128 MG/DL 98 MG/DL Calcium Level 8.7 MG/DL 8.3 MG/DL Magnesium Level 2.2 MG/DL 2.3 MG/DL Total Bilirubin 0.3 MG/DL 0.3 MG/DL Aspartate Amino Transf 24 U/L 59 U/L (AST/SGOT) Alanine Aminotransferase 33 U/L 55 U/L (ALT/SGPT) Alkaline Phosphatase 209 U/L 247 U/L Total Protein 5.6 GM/DL 5.8 GM/DL Albumin 2.1 GM/DL 2.2 GM/DL Microbiology Date/Time Procedure Status Source Growth 07/09/16 21:00 Gram Stain - Final Complete Sputum Expectorated Sputum 07/09/16 21:00 Sputum Culture - Final Complete Sputum Expectorated Sputum HEAVY GROWTH NORMAL RESPIRATORY [facility] Imaging Last Impressions Chest X-Ray 07/12/16 0600 Signed Impressions: Service Date/Time: Tuesday, July 12, 2016 05:50 - CONCLUSION: Diffuse pulmonary vascular congestion and cardiomegaly all suggest failure. Bilateral pleural effusions increased since the third. Silas Emery MD Chest CT 07/09/16 0000 Signed Impressions: Service Date/Time: Saturday, July 09, 2016 11:02 - CONCLUSION: 1. Bilateral lower lobe dependent atelectasis versus consolidation indicating possible aspiration. 2. 9 x 5 mm nodular density abutting the right major fissure in the right midlung. Recommend three-month followup noncontrast chest CT. Tomas Clark MD Abdomen/Pelvis CT 07/09/16 0000 Signed Impressions: Service Date/Time: Saturday, July 09, 2016 17:20 - CONCLUSION: 1. Extraluminal gas and fluid collection in the central pelvis. The most likely etiology in a patient of this age would be subacute diverticulitis with subsequent abscess formation. The gas and fluid collection is also adjacent to a loop of thickened small bowel. Inflammatory bowel disease would also be in the differential diagnosis. 2. Right-sided sacral and pubic rami insufficiency fractures likely subacute chronic. 3. Prominent bilateral lower lobe pulmonary consolidation Tomas Clark MD ADDENDUM: Additional clinical data is now available. This patient underwent a hysterectomy 2 weeks ago. The air and fluid within the pelvis is felt to relate to postoperative infection as opposed to an acute diverticulitis. Although there is some liquefaction there are multiple small pockets of air and no large drainable collection. I feel there is incomplete liquefaction at this point. If symptoms persist a followup CT can be performed to see if there is a drainable collection at that time. I do not see anything to suggest bowel or bladder injury. I spoke with and Dr Faust concerning this. Orlin Santana Jr., MD Physical Exam GENERAL: This is a well-nourished, well-developed patient, in no apparent distress. SKIN: No rashes, ecchymoses or lesions. Cool and dry. HEAD: Atraumatic. Normocephalic. No temporal or scalp tenderness. EYES: Pupils equal round and reactive. Extraocular motions intact. No scleral icterus. No injection or drainage. ENT: Nose without bleeding, purulent drainage or septal hematoma. Throat without erythema, tonsillar hypertrophy or exudate. Uvula midline. Airway patent. NECK: Trachea midline. Supple, nontender, no meningeal signs. CARDIOVASCULAR: Regular rate and rhythm without murmurs, gallops, or rubs. RESPIRATORY: Clear to auscultation. Breath sounds equal bilaterally. No wheezes , rales, or rhonchi. GASTROINTESTINAL: Abdomen soft, non-tender, nondistended. MUSCULOSKELETAL: Extremities without clubbing, cyanosis, or edema. NEUROLOGICAL: Awake and alert. Grossly non focal Psych: cooperative IV line sites with no e.o infection. Assessment & Plan Remarks Sepsis present on admission Possible HCAP (pneumonia after recent procedure) Possible Intra abdominal abscess. Total vaginal hysterectomy with BSO, Ant repair on 06/24/16 COPD acute exacerbation Anxiety Hypoalbuminemia Recs: Continue Zosyn IV Continue Vanco IV (target 15-20) Continue Azithro ok to change to oral (plan on 5 days) Follow cultures Follow clinically. Ann Abraham MD Jul 12, 2016 14:49
--- NOTE | 2016-07-12 15:05 | HHI.PR ---
Subjective Remarks Follow-up for pneumonia COPD exacerbation Patient stated her breathing has improved. She stated that she has not been diagnosed with COPD. She says she is a smoker. Patient has audible wheezing at bedside. She stated that she is not on any home oxygen. She has no complaints. Objective Vitals Vital Signs Date Time Temp Pulse Resp B/P Pulse Ox O2 Delivery O2 Flow Rate FiO2 07/12/16 12:00 97.3 68 18 153/77 92 07/12/16 09:55 98 Nasal Cannula 3.00 07/12/16 09:31 Nasal Cannula 3.00 07/12/16 08:00 97.8 63 18 147/85 93 07/12/16 04:00 97.4 66 18 151/74 93 07/12/16 04:00 Nasal Cannula 3.00 07/12/16 00:00 Nasal Cannula 3.00 07/12/16 00:00 97.4 63 18 140/66 92 07/11/16 21:01 93 Nasal Cannula 4.00 07/11/16 20:00 Nasal Cannula 3.00 07/11/16 20:00 97.5 75 16 109/62 92 07/11/16 16:00 97.7 64 24 141/71 96 I/O 07/11/16 07/11/16 07/11/16 07/12/16 07/12/16 07/12/16 07:00 15:00 23:00 07:00 15:00 23:00 Intake Total 1271 ml 1150 ml 570 ml 360 ml Output Total 554 ml 403 ml Balance 717 ml 747 ml 570 ml 360 ml Intake Oral 80 ml 480 ml 570 ml 360 ml IV Total 1191 ml 670 ml Output Urine Total 550 ml 400 ml Stool Total 4 ml 3 ml # Voids 2 3 # Bowel Movements 1 1 Result Diagram: 07/12/16 0556 07/12/16 0556 Objective Remarks GENERAL: in NAD CARDIOVASCULAR: Regular rate and rhythm without murmurs, gallops, or rubs. RESPIRATORY: Diffuse expiratory wheezing. No accessory muscle use. GASTROINTESTINAL: Abdomen soft, non-tender, nondistended. MUSCULOSKELETAL: No cyanosis, or edema. BACK: Nontender without obvious deformity. No CVA tenderness. Medications and IVs Current Medications Sodium Chloride (NS Flush) 2 ml UNSCH PRN IVF FLUSH AFTER USING IV ACCESS Last administered on 07/11/16 20:06; Start 07/09/16 at 08:45 Albuterol/ Ipratropium 1 ampule 1 ampule Q15M INH Last administered on 08:47; Start 07/09/16 at 08:45; Stop 07/09/16 at 09:16; Status DC Sodium Chloride 1,000 ml @ 2,000 mls/hr Q30M ONCE IV Last administered on 08:58; Start 07/09/16 at 08:45; Stop 07/09/16 at 09:14; Status DC Piperacillin Sod/ Tazobactam Sod (Zosyn 3.375 Gm Premix) 50 ml @ 100 mls/hr ONCE ONCE IV Last administered on 07/09/16 08:58; Start 07/09/16 at 08:45; Stop 07/09/16 at 09:14; Status DC Albuterol/ Ipratropium (Duoneb Neb) 1 ampule STK-MED ONCE .ROUTE ; Start at 08:39; Stop 07/09/16 at 08:40; Status DC Acetaminophen (Tylenol) 650 mg ONCE ONCE PO Last administered on 07/09/16 08: 59; Start 07/09/16 at 08:45; Stop 07/09/16 at 08:46; Status DC Ibuprofen 600 mg 600 mg ONCE ONCE PO Last administered on 07/09/16 08:59; Start 07/09/16 at 08:45; Stop 07/09/16 at 08:46; Status DC Sodium Chloride (NS 1000 ml Inj) 1,000 ml @ 2,000 mls/hr Q30M ONCE IV Last administered on 07/09/16 08:59; Start 07/09/16 at 09:00; Stop 07/09/16 at 09:29; Status DC Methylprednisolone Sodium Succinate 125 mg 125 mg ONCE ONCE IV PUSH Last administered on 07/09/16 10:34; Start 07/09/16 at 10:15; Stop 07/09/16 at 10:16; Status DC Sodium Chloride (NS 1000 ml Inj) 1,000 ml @ 84 mls/hr [id number] IV Last administered on 07/11/16 09:45; Start 07/09/16 at 10:40; Stop 07/11/16 at 10:04; Status DC Acetaminophen (Tylenol) 650 mg Q6H PRN PO FEVER >101F; Start 07/09/16 at 10:45 Pantoprazole Sodium (Protonix Inj) 40 mg DAILY IV Last administered on 07:54; Start 07/09/16 at 10:45; Stop 07/11/16 at 10:04; Status DC Albuterol/ Ipratropium (Duoneb Neb) 1 ampule Q4HR NEB INH Last administered on 07/11/16 07:36; Start 07/09/16 at 12:00; Stop 07/11/16 at 09:45; Status DC Albuterol/ Ipratropium (Duoneb Neb) 1 ampule Q2HR NEB PRN INH WHEEZING; Start 07/09/16 at 10:45 Enoxaparin Sodium (Lovenox Inj) 40 mg Q24H SQ Last administered on 07/12/16 11: 04; Start 07/09/16 at 12:00 Miscellaneous Information 1 Q361D XX Last administered on 07/09/16 15:21; Start 07/09/16 at 10:45 Chlorhexidine Gluconate (Chlorhexidine 2% Cloth) 3 pack Taper DAILY@04 TOP Last administered on 07/12/16 03:58; Start 07/10/16 at 04:00; Stop 07/06/17 at 03 :59 Chlorhexidine Gluconate (Chlorhexidine 2% Cloth) 3 pack UNSCH PRN TOP HYGIENIC CARE; Start 07/09/16 at 10:45 Senna/Docusate Sodium (Dayan-Colace) 1 tab BID PO Last administered on 07/10/16 08:19; Start 07/09/16 at 21:00 Magnesium Hydroxide (Milk Of Magnesia Liq) 30 ml Q12H PRN PO MILD - MODERATE CONSTIPATION; Start 07/09/16 at 10:45 Sennosides (Senokot) 17.2 mg Q12H PRN PO MODERATE - SEVERE CONSTIPATION; Start 07/09/16 at 10:45 Bisacodyl (Dulcolax Supp) 10 mg DAILY PRN RECTAL SEVERE CONSITIPATION; Start at 10:45 Lactulose (Lactulose Liq) 30 ml DAILY PRN PO SEVERE CONSITIPATION Last administered on 07/10/16 08:19; Start 07/09/16 at 10:45 Methylprednisolone Sodium Succinate 60 mg 60 mg Q8HR IV PUSH Last administered on 07/11/16 06:24; Start 07/09/16 at 14:00; Stop 07/11/16 at 09:45; Status DC Cefepime HCl 2000 mg/Sodium Chloride 100 ml @ 200 mls/hr Q12H IV ; Start at 12:00; Stop 07/09/16 at 14:26; Status DC Azithromycin 500 mg/Sodium Chloride 250 ml @ 250 mls/hr Q24H IV Last administered on 07/10/16 12:01; Start 07/09/16 at 11:00; Stop 07/10/16 at 16:43; Status DC Sodium Chloride 1,000 ml @ 999 mls/hr BOLUS ONCE IV Last administered on 15:21; Start 07/09/16 at 15:00; Stop 07/09/16 at 16:00; Status DC Vancomycin HCl/ Sodium Chloride (Vancomycin Inj/ NS 250 ml Inj) 250 ml @ 250 mls/hr ONCE ONCE IV Last administered on 07/09/16 16:12; Start 07/09/16 at 15: 00; Stop 07/09/16 at 15:59; Status DC Acetaminophen/ Hydrocodone Bitart ([place] 10-325 Mg) 1 tab Q8HR PRN PO PAIN Last administered on 07/10/16 03:03; Start 07/09/16 at 14:30; Stop 07/10/16 at 14: 25; Status DC Alprazolam 0.5 mg 0.5 mg Q8H PRN PO anxiety Last administered on 07/12/16 12:59 ; Start 07/09/16 at 14:30 Potassium Chloride 100 ml @ 50 mls/hr Q2H PRN IV For Potassium 2.8 - 3.2 mEq/L ; Start 07/09/16 at 14:30; Stop 07/11/16 at 14:32; Status DC Potassium Chloride (KCl 20 Meq Premix Inj) 100 ml @ 50 mls/hr Q2H PRN IV For Potassium 2.8 - 3.2 mEq/L; Start 07/09/16 at 14:30; Stop 07/11/16 at 14:32; Status DC Potassium Bicarb/ Potassium Chloride 50 meq 50 meq UNSCH PRN PO For Potassium 3.3 - 3.5 mEq/L; Start 07/09/16 at 14:30 Potassium Chloride 100 ml @ 25 mls/hr UNSCH PRN IV For Potassium 3.3 - 3.5 mEq /L Last administered on 07/10/16t 06:39; Start 07/09/16 at 14:30; Stop 07/11/16 at 14:32; Status DC Potassium Chloride 100 ml @ 50 mls/hr Q2H PRN IV For Potassium 3.3 - 3.5 mEq/L ; Start 07/09/16 at 14:30; Stop 07/11/16 at 14:32; Status DC Magnesium Sulfate/ Sodium Chloride (Magnesium Sulfate Inj/NS Inj) 100 ml @ 50 mls/hr UNSCH PRN IV For Magnesium 0.9 - 1.1 mg/dL; Start 07/09/16 at 14:30; Stop 07/11/16 at 14:32; Status DC Magnesium Oxide 800 mg 800 mg UNSCH PRN PO For Magnesium 1.2 - 1.6 mg/dL; Start 07/09/16 at 14:30; Stop 07/11/16 at 14:23; Status DC Magnesium Sulfate/ Sodium Chloride (Magnesium Sulfate Inj/NS Inj) 100 ml @ 50 mls/hr UNSCH PRN IV For Magnesium 1.2 - 1.6 mg/dL; Start 07/09/16 at 14:30; Stop 07/11/16 at 14:32; Status DC Potassium Phosphate 2000 mg 2,000 mg Q4H PRN PO For Phosphorus < 2.5 mg/dL; Start 07/09/16 at 14:30; Stop 07/11/16 at 14:32; Status DC Sodium Phosphate/ Sodium Chloride (Sodium Phosphate Inj/NS 250 ml Inj) 250 ml @ 42 mls/hr UNSCH PRN IV For Phosphorus < 2.5 mg/dL; Start 07/09/16 at 14:30; Stop 07/11/16 at 14:32; Status DC Potassium Phosphate 2000 mg 2,000 mg UNSCH PRN PO/TUBE SEE LABEL COMMENTS; Start 07/09/16 at 14:20; Stop 07/11/16 at 14:32; Status DC Potassium Phosphate 30 mmol/ Sodium Chloride 260 ml @ 42 mls/hr UNSCH PRN IV SEE LABEL COMMENTS; Start 07/09/16 at 14:20; Stop 07/11/16 at 14:32; Status DC Piperacillin Sod/ Tazobactam Sod (Zosyn 4.5 Gm Premix) 100 ml @ 200 mls/hr Q6H IV Last administered on 07/11/16 09:44; Start 07/09/16 at 16:00; Stop 07/11/16 at 17:51; Status DC Pneumococcal Polyvalent Vaccine (Pneumovax-23 Inj) 25 mcg ONCE ONCE IM ; Start 07/10/16 at 10:00; Stop 07/10/16 at 10:13; Status DC Iohexol 97 ml 97 ml STK-MED ONCE IV Last administered on 07/09/16 17:23; Start 07/09/16 at 17:23; Stop 07/09/16 at 17:24; Status DC Sodium Chloride 1,000 ml @ 999 mls/hr Q1H1M IV Last administered on 07/09/16 19:46; Start 07/09/16 at 18:45; Stop 07/09/16 at 20:45; Status DC Sodium Chloride 1,000 ml @ 1,000 mls/hr Q1H IV Last administered on 07/09/16 23:27; Start 07/09/16 at 22:27; Stop 07/10/16 at 00:26; Status DC Norepinephrine Bitartrate 250 ml @ 0 mls/hr TITRATE IV Last administered on 07/10 02:59; Start 07/10/16 at 02:00; Stop 07/11/16 at 10:04; Status DC Pharmacy Profile Note 0 ml @ 0 mls/hr UNSCH OTHER ; Start 07/10/16 at 07:30; Stop 07/11/16 at 11:31; Status DC Vancomycin HCl/ Sodium Chloride (Vancomycin Inj/ NS 250 ml Inj) 262.5 ml @ 250 mls/hr Q12H IV Last administered on 07/11/16 09:44; Start 07/10/16 at 10:00; Stop 07/11/16 at 11:31; Status DC Miscellaneous Information SPECIFIC LAB TO BE DRAWN:VANCO TROUGH DATE... ONCE ONCE .XX Last administered on 07/11/16 09:44; Start 07/11/16 at 09:45; Stop 07/11 at 09:46; Status DC Acetaminophen/ Hydrocodone Bitart ([place] 7.5-325 Mg) 1 tab Q4H PRN PO back pain Last administered on 07/12/16 14:26; Start 07/10/16 at 14:30 Acetaminophen (Ofirmev Inj) 1,000 mg ONCE ONCE IV Last administered on 14:52; Start 07/10/16 at 15:00; Stop 07/10/16 at 15:03; Status DC Nystatin (Mycostatin Powder) 1 applic Q8HR TOPICAL Last administered on 13:01; Start 07/10/16 at 15:30 Acetaminophen/ Hydrocodone Bitart ([place] 7.5-325 Mg) 1 tab Q4H PRN PO back pain; Start 07/10/16 at 14:30; Status UNV Acetaminophen (Ofirmev Inj) 1,000 mg ONCE ONCE IV ; Start 07/10/16 at 14:30; Stop 07/10/16 at 14:31; Status UNV Nicotine (Habitrol 21 Mg Patch.24 Hr) 1 patch DAILY T-DERMAL Last administered on 07/12/16 09:19; Start 07/10/16 at 14:30 Miscellaneous Information 1 DAILY T-DERMAL Last administered on 07/12/16 09:00 ; Start 07/11/16 at 09:00 Azithromycin (Zithromax) 500 mg DAILY PO Last administered on 07/12/16 09:18; Start 07/11/16 at 09:00 Albuterol/ Ipratropium (Duoneb Neb) 1 ampule Q6HR NEB INH Last administered on 07/12/16 09:50; Start 07/11/16 at 16:00 Methylprednisolone Sodium Succinate (SoluMEDROL INJ) 40 mg Q12HR IV PUSH Last administered on 07/12/16 09:18; Start 07/11/16 at 21:00 Loperamide HCl (Imodium) 2 mg NOW ONCE PO Last administered on 07/11/16 10:20 ; Start 07/11/16 at 10:15; Stop 07/11/16 at 10:16; Status DC Amoxicillin/ Clavulanate Potassium (Augmentin) 500 mg Q8HR PO Last administered on 07/12/16 13:01; Start 07/11/16 at 18:00 Duloxetine HCl (Cymbalta ) 30 mg DAILY PO Last administered on 07/12/16 09:42 ; Start 07/12/16 at 09:00 A/P Problem List: (1) Severe sepsis ICD Code: A41.9 Status: Acute (2) Acute respiratory failure with hypoxia ICD Code: J96.01 Status: Acute (3) COPD exacerbation ICD Code: J44.1 Status: Acute (4) HCAP (healthcare-associated pneumonia) ICD Code: J18.9 Status: Acute (5) Lower abdominal pain ICD Code: R10.30 Status: Acute (6) Status post vaginal hysterectomy ICD Code: Z90.710 Status: Acute (7) COPD (chronic obstructive pulmonary disease) ICD Code: J44.9 Status: Acute Assessment and Plan Acute hypoxemic respiratory failure-resolved Healthcare associated pneumonia COPD exacerbation -Currently on NC, use BiPAP as needed -Broad-spectrum antibiotics with Zosyn and azithromycin and vancomycin. Vancomycin was discontinued yesterday. Zosyn discontinued today. Patient is on Augmentin and azithromycin by mouth. -Patient currently on cimetidine 40 mg by mouth twice a day. We'll continue with IV Solu-Medrol since patient does have audible wheezing. -DuoNeb every 4 hours scheduled and when necessary -Wean oxygen as tolerated. Patient will need pulmonary function tests as outpatient. Anxiety disorder -Xanax 0.5 mg by mouth twice a day for anxiety -Continue hydrocodone for pain Septic shock -Normal saline IV fluids total 4 L boluses and 84 mL per hour-change IV to KVO -Trend lactic acid - Levophed DCd s/p TVH, BSO, A/P repair and urethropexy on 06/24/16 Possible pelvic abscess -CT abdomen pelvis- showed possible fluid collection posterior to the bladder, possible abscess -Dr. Faust recommends continued medical management, she does not think there is an abscess -Monitor renal function closely. Severe sepsis Healthcare associated pneumonia Possible pelvic abscess and ?post op infection -See management as above. -Infectious disease is following. Clinically she is improving. PROPH: -Bilateral lower extremity SCDs. Lovenox for DVT prophylaxis. IV Protonix 40 mg daily for GI prophylaxis Discharge Planning Patient needs continual hospitalization due to severity of COPD in which requires scheduled to nebs and IV steroids. Problem Qualifiers (1) COPD (chronic obstructive pulmonary disease): Qualified Code: J44.9 - Chronic obstructive pulmonary disease, unspecified COPD type Niyah Louie MD Jul 12, 2016 15:05 PROPH: -Bilateral lower extremity SCDs. Lovenox for DVT prophylaxis. IV Protonix 40 mg daily for GI prophylaxis Problem Qualifiers (1) COPD (chronic obstructive pulmonary disease): Qualified Code: J44.9 - Chronic obstructive pulmonary disease, unspecified COPD type Niyah Louie MD Jul 12, 2016 15:05
[2016-07-12] MEDS ORDERED: IOHEXOL 350 MG/ML 10 ML VIAL (for RAD DIAG) IV ONE (17:11)
--- NOTE | 2016-07-12 17:20 | RADRPT ---
EXAM DATE/TIME: 07/12/2016 16:25 [facility] COMPARISON: CT ABDOMEN & PELVIS W CONTRAST, July 09, 2016, 17:20. INDICATIONS : Evaluate for possible forming abscess seen on fridays scan. IV CONTRAST: 74 cc Omnipaque 350 (iohexol) IV ORAL CONTRAST: No oral contrast ingested. RADIATION DOSE: 10.82 CTDIvol (mGy) MEDICAL HISTORY : Cerebrovascular disease. SURGICAL HISTORY : Hysterectomy. ENCOUNTER: Subsequent ACUITY: 4 - 6 days PAIN SCALE: 4/10 LOCATION: Abdomen TECHNIQUE: Volumetric scanning of the pelvis was performed. Using automated exposure control and adjustment of t he mA and/or kV according to patient size, radiation dose was kept as low as reasonably achievable to obtain optimal diagnostic quality images. FINDINGS: There has been interval improvement. Previously defined abscess is smaller. There is trace free flu id in the pelvis. Adnexal regions are unremarkable. There is no free air. CONCLUSION: 1. Interval improvement with less apparent abscess identified. There is no free air. 2. Trace free fluid is evident. Follow-up with CT scan of the pelvis with oral and intravenous contr ast. Michael Leon MD FACR on July 12, 2016 at 17:08 Board Certified Radiologist. This report was verified electronically.
--- NOTE | 2016-07-12 20:20 | HHI.PR ---
Subjective Remarks CT of pelvis showing resolution of the fluid collection seen Tuesday. Anticipate full resolution. Can follow up on outpatient basis with ultrasound. However interval CXR is concerning with possible cardiac compromise in addition to her COPD. I has called by Margaret's son from [place] extremely concerned about her anxiety, and elevating BP. I reassured him it would be addressed. He also related that he know his mom has been diagnosed with emphysema, so there is some degree of denial when she denied COPD when discussing with Dr. Louie From a surgical standpoint there is no more action on my part. Her issues of high anxiety, chronic back pain, COPD and recent pneumonia and other factors remain to be addressed. Will ask hospitalist if needs cardiology consult. Objective Vital Signs Vital Signs Date Time Temp Pulse Resp B/P Pulse Ox O2 Delivery O2 Flow Rate FiO2 07/12/16 16:00 97.7 71 18 165/83 90 07/12/16 12:31 Nasal Cannula 3.00 07/12/16 12:00 97.3 68 18 153/77 92 07/12/16 09:55 98 Nasal Cannula 3.00 07/12/16 09:31 Nasal Cannula 3.00 07/12/16 08:00 97.8 63 18 147/85 93 07/12/16 04:00 97.4 66 18 151/74 93 07/12/16 04:00 Nasal Cannula 3.00 07/12/16 00:00 Nasal Cannula 3.00 07/12/16 00:00 97.4 63 18 140/66 92 07/11/16 21:01 93 Nasal Cannula 4.00 I/O 07/11/16 07/11/16 07/11/16 07/12/16 07/12/16 07/12/16 07:00 15:00 23:00 07:00 15:00 23:00 Intake Total 1271 ml 1150 ml 570 ml 360 ml Output Total 554 ml 403 ml Balance 717 ml 747 ml 570 ml 360 ml Intake Oral 80 ml 480 ml 570 ml 360 ml IV Total 1191 ml 670 ml Output Urine Total 550 ml 400 ml Stool Total 4 ml 3 ml # Voids 2 3 # Bowel Movements 1 1 Result Diagram: 07/12/16 0556 07/12/16 0556 Objective Remarks white count coming down sputum normal renetta one antibiotic stopped and hopefully transition to oral A/P Assessment and Plan Post Op Day19 Rapid improvement with IV antibiotics and pulmonary toilet Still SOB using nicotine patch white count down cultures negative complaining of terrible back pain--not entirely sure if medication seeking/ unrealistic expectations CT of pelvis today to see if abcess resolving start duloxetine for pain, depression and it can help with continence Isabelle Faust MD Jul 12, 2016 20:20
--- NOTE | 2016-07-12 20:41 | HHI.PR ---
Addendum to Inpatient Note Additional Information I received a call from Dr. Faust the [employer], informing me that the son is asking for cardiac workup, regarding her chest x-ray today which showed pulmonary congestion and cardia megaly, I ordered BMP, 2-D echo, placed the patient on clonidine and Vasotec when necessary, she will probably need to be on scheduled LIVIA inhibitor, she has paranoia and UA. Mejia Palomares MD Jul 12, 2016 20:40
[2016-07-12] MEDS ORDERED: ENALAPRILAT 1.25 MG/ML VIAL IV PUSH PRN (20:45)
[2016-07-12] MEDS ORDERED: ENALAPRILAT 1.25 MG/ML VIAL IV PUSH ONE (21:00)
[2016-07-13] VITALS (9 sets, daily range): BP systolic 141–164; BP diastolic 64–77; PULSE 51–65; RESP 16–20; TEMP 97.8–98.2; O2SAT 90–97
[2016-07-13] MEDS ORDERED: FUROSEMIDE 20 MG/2 ML VIAL IV PUSH ONE
[2016-07-13] MEDS: ONDANSETRON HCL 4 MG/2 ML VIAL IV PUSH PRN ×2 (00:25→20:50)
[2016-07-13] MEDS: ACETAMINOPHEN/HYDROcodone 325 MG/7.5 MG TAB PO PRN ×6 (00:56→22:34)
[2016-07-13] MEDS: RESP: ALBUTEROL 2.5 MG/IPRATROPIUM 0.5 MG NEB (SCH) INH ×4 (03:52→21:03)
[2016-07-13] MEDS: CHLORHEXIDINE GLUCONATE 2 % 1 PACK (2 CLOTHS) TOP SCH (04:00)
[2016-07-13] MEDS: ALPRAZolam 0.5 MG TAB PO PRN ×3 (05:38→22:34)
[2016-07-13] MEDS: AMOXICILLIN/CLAVULANATE K 500 MG TAB PO SCH ×3 (05:39→20:55)
[2016-07-13] MEDS: NYSTATIN 100,000 U/GM PWD 15 GM BTL TOPICAL SCH ×3 (05:39→20:58)
--- NOTE | 2016-07-13 08:18 | HHI.OB ---
Subjective Post Operative Day: 19 Remarks Calmer this am resting comfortable with nc. reviewed CT scan (resolving process with sonogram in my office on discharge from hospital) reviewed concerns about heart and lungs--she states she has never had elevated BP (she also states she has never been diagnosed with COPD and underestimates her PPD habit) BNP 453 and LFTs trending mildly upward Objective Vitals/I&O Vital Signs Date Time Temp Pulse Resp B/P Pulse Ox O2 Delivery O2 Flow Rate FiO2 07/13/16 04:00 97.8 60 20 149/66 93 07/13/16 03:56 91 Nasal Cannula 4.00 07/13/16 00:00 98.1 60 20 149/66 93 07/12/16 22:11 66 20 145/79 07/12/16 20:13 90 Nasal Cannula 4.00 07/12/16 20:00 Nasal Cannula 3.00 07/12/16 20:00 97.7 62 20 152/73 94 07/12/16 16:00 97.7 71 18 165/83 90 07/12/16 12:31 Nasal Cannula 3.00 07/12/16 12:00 97.3 68 18 153/77 92 07/12/16 09:55 98 Nasal Cannula 3.00 07/12/16 09:31 Nasal Cannula 3.00 Intake & Output 07/13/16 07/13/16 07:00 19:00 Output Total 2400 ml Balance -2400 ml Output Urine Total 2400 ml # Bowel Movements 0 Result Diagram: 07/12/16 0556 07/12/16 0556 Objective Remarks GENERAL: Well-nourished, well-developed patient. CARDIOVASCULAR: Regular rate and rhythm without murmurs, gallops, or rubs. RESPIRATORY: Breath sounds equal bilaterally. No accessory muscle use. ABDOMEN/GI: Abdomen soft, non-tender, bowel sounds present. Incision: Clean, dry and intact. Fundus: Firm, non-tender at umbilicus. GENITOURINARY: Light to moderate bleeding. EXTREMITIES: No cyanosis or edema, non-tender, without signs of DVT. Medications and IVs Current Medications Medications (Trade) Dose Ordered Sig/Patti Route Start Time Stop Time Status Last Admin (NS Flush) 2 ml UNSCH PRN IVF 07/09/16 08:45 07/11/16 20:06 (Tylenol) 650 mg Q6H PRN PO 07/09/16 10:45 (Lovenox Inj) 40 mg Q24H SQ 07/09/16 12:00 07/12/16 11:04 Miscellaneous Information 1 Q361D XX 07/09/16 10:45 07/09/16 15:21 (Chlorhexidine 2% Cloth) 3 pack Taper DAILY@04 TOP 07/10/16 04:00 07/06/17 03:59 07/13/16 04:00 (Chlorhexidine 2% Cloth) 3 pack UNSCH PRN TOP 07/09/16 10:45 (Dayan-Colace) 1 tab BID PO 07/09/16 21:00 07/10/16 08:19 (Milk Of Magnesia Liq) 30 ml Q12H PRN PO 07/09/16 10:45 (Senokot) 17.2 mg Q12H PRN PO 07/09/16 10:45 (Dulcolax Supp) 10 mg DAILY PRN RECTAL 07/09/16 10:45 (Lactulose Liq) 30 ml DAILY PRN PO 07/09/16 10:45 07/10/16 08:19 (Xanax) 0.5 mg Q8H PRN PO 07/09/16 14:30 07/13/16 05:38 (K-Lyte Cl Eff) 50 meq UNSCH PRN PO 07/09/16 14:30 ([place] 7.5-325 Mg) 1 tab Q4H PRN PO 07/10/16 14:30 07/13/16 05:39 (Mycostatin Powder) 1 applic Q8HR TOPICAL 07/10/16 15:30 07/12/16 13:01 (Habitrol 21 Mg Patch.24 Hr) 1 patch DAILY T-DERMAL 07/10/16 14:30 07/12/16 09:19 Miscellaneous Information 1 DAILY T-DERMAL 07/11/16 09:00 07/12/16 09:00 (Zithromax) 500 mg DAILY PO 07/11/16 09:00 07/12/16 09:18 (SoluMEDROL INJ) 40 mg Q12HR IV PUSH 07/11/16 21:00 07/12/16 21:11 (Augmentin) 500 mg Q8HR PO 07/11/16 18:00 07/13/16 05:39 (Cymbalta Dr) 30 mg DAILY PO 07/12/16 09:00 07/12/16 09:42 (Vasotec Inj) 1.25 mg Q6H PRN IV PUSH 07/12/16 20:45 (Catapres) 0.1 mg Q6H PRN PO 07/12/16 20:45 (Zofran Inj) 4 mg Q6H PRN IV PUSH 07/13/16 00:00 07/13/16 00:25 Assessment/Plan Problem List: (1) COPD exacerbation (2) Acute respiratory failure with hypoxia (3) Severe sepsis (4) Status post vaginal hysterectomy Assessment and Plan surgically stable for me to sign off and see socially concerns about cardiopulmonary status to be followed and addressed will follow up with her in my office the week after discharge for ultrasound. Isabelle Faust MD Jul 13, 2016 08:18
[2016-07-13] MEDS: REMOVE OLD PATCH T-DERMAL SCH (09:00)
[2016-07-13] MEDS: AZITHROMYCIN 250 MG TAB PO SCH (09:34)
[2016-07-13] MEDS: methylPREDNISolone SOD SUCC 40 MG/1 ML VIAL IV PUSH SCH ×2 (09:34→20:53)
[2016-07-13] MEDS: DOCUSATE SODIUM 50 MG/SENNA 8.6 MG TAB PO SCH ×2 (09:34→20:57)
[2016-07-13] MEDS: NICOTINE 21 MG/24 HR PATCH T-DERMAL SCH (09:34)
[2016-07-13] MEDS: DULoxetine HCl DR 30 MG CAP PO SCH (09:35)
[2016-07-13] MEDS: cloNIDine HCL 0.1 MG TAB PO PRN ×2 (09:42→16:28)
[2016-07-13] MEDS: FUROSEMIDE 20 MG/2 ML VIAL IV PUSH SCH ×2 (11:20→17:14)
[2016-07-13] MEDS: ENOXAPARIN SODIUM 40 MG/0.4 ML SYRINGE SQ SCH (11:21)
--- NOTE | 2016-07-13 11:46 | HHI.PR ---
Subjective Remarks Follow-up for respiratory failure Patient stated breathing has improved. Denied any cough. Last night patient had a repeat chest x-ray done and echo order based on chest x-ray showing vascular congestion and cardiomegaly. When I asked patient what happened regards to this. She stated that her son did speak with the night doctor. Patient deny any increase of shortness of breathing. She stated that she has been doing better every day. Objective Vitals Vital Signs Date Time Temp Pulse Resp B/P Pulse Ox O2 Delivery O2 Flow Rate FiO2 07/13/16 08:15 96 Nasal Cannula 4.00 07/13/16 08:00 98.2 53 18 164/74 97 07/13/16 04:00 97.8 60 20 149/66 93 07/13/16 03:56 91 Nasal Cannula 4.00 07/13/16 00:00 98.1 60 20 149/66 93 07/12/16 22:11 66 20 145/79 07/12/16 20:13 90 Nasal Cannula 4.00 07/12/16 20:00 Nasal Cannula 3.00 07/12/16 20:00 97.7 62 20 152/73 94 07/12/16 16:00 97.7 71 18 165/83 90 07/12/16 12:31 Nasal Cannula 3.00 07/12/16 12:00 97.3 68 18 153/77 92 I/O 07/12/16 07/12/16 07/12/16 07/13/16 07/13/16 07/13/16 07:00 15:00 23:00 07:00 15:00 23:00 Intake Total 360 ml Output Total 2400 ml Balance 360 ml -2400 ml Intake Oral 360 ml Output Urine Total 2400 ml # Voids 3 # Bowel Movements 1 0 Result Diagram: 07/12/16 0556 07/12/16 0556 Objective Remarks GENERAL: in NAD CARDIOVASCULAR: Regular rate and rhythm without murmurs, gallops, or rubs. RESPIRATORY: Diffuse expiratory wheezing. No accessory muscle use. GASTROINTESTINAL: Abdomen soft, non-tender, nondistended. MUSCULOSKELETAL: No cyanosis, or edema. BACK: Nontender without obvious deformity. No CVA tenderness. Medications and IVs Current Medications Sodium Chloride (NS Flush) 2 ml UNSCH PRN IVF FLUSH AFTER USING IV ACCESS Last administered on 07/11/16 20:06; Start 07/09/16 at 08:45 Albuterol/ Ipratropium 1 ampule 1 ampule Q15M INH Last administered on 08:47; Start 07/09/16 at 08:45; Stop 07/09/16 at 09:16; Status DC Sodium Chloride 1,000 ml @ 2,000 mls/hr Q30M ONCE IV Last administered on 08:58; Start 07/09/16 at 08:45; Stop 07/09/16 at 09:14; Status DC Piperacillin Sod/ Tazobactam Sod (Zosyn 3.375 Gm Premix) 50 ml @ 100 mls/hr ONCE ONCE IV Last administered on 07/09/16 08:58; Start 07/09/16 at 08:45; Stop 07/09/16 at 09:14; Status DC Albuterol/ Ipratropium (Duoneb Neb) 1 ampule STK-MED ONCE .ROUTE ; Start at 08:39; Stop 07/09/16 at 08:40; Status DC Acetaminophen (Tylenol) 650 mg ONCE ONCE PO Last administered on 07/09/16 08: 59; Start 07/09/16 at 08:45; Stop 07/09/16 at 08:46; Status DC Ibuprofen 600 mg 600 mg ONCE ONCE PO Last administered on 07/09/16 08:59; Start 07/09/16 at 08:45; Stop 07/09/16 at 08:46; Status DC Sodium Chloride (NS 1000 ml Inj) 1,000 ml @ 2,000 mls/hr Q30M ONCE IV Last administered on 07/09/16 08:59; Start 07/09/16 at 09:00; Stop 07/09/16 at 09:29; Status DC Methylprednisolone Sodium Succinate 125 mg 125 mg ONCE ONCE IV PUSH Last administered on 07/09/16 10:34; Start 07/09/16 at 10:15; Stop 07/09/16 at 10:16; Status DC Sodium Chloride (NS 1000 ml Inj) 1,000 ml @ 84 mls/hr [id number] IV Last administered on 07/11/16 09:45; Start 07/09/16 at 10:40; Stop 07/11/16 at 10:04; Status DC Acetaminophen (Tylenol) 650 mg Q6H PRN PO FEVER >101F; Start 07/09/16 at 10:45 Pantoprazole Sodium (Protonix Inj) 40 mg DAILY IV Last administered on 07:54; Start 07/09/16 at 10:45; Stop 07/11/16 at 10:04; Status DC Albuterol/ Ipratropium (Duoneb Neb) 1 ampule Q4HR NEB INH Last administered on 07/11/16 07:36; Start 07/09/16 at 12:00; Stop 07/11/16 at 09:45; Status DC Albuterol/ Ipratropium (Duoneb Neb) 1 ampule Q2HR NEB PRN INH WHEEZING Last administered on 07/12/16 18:27; Start 07/09/16 at 10:45 Enoxaparin Sodium (Lovenox Inj) 40 mg Q24H SQ Last administered on 07/13/16 11: 21; Start 07/09/16 at 12:00 Miscellaneous Information 1 [id number] XX Last administered on 07/09/16 15:21; Start 07/09/16 at 10:45 Chlorhexidine Gluconate (Chlorhexidine 2% Cloth) 3 pack Taper DAILY@04 TOP Last administered on 07/13/16 04:00; Start 07/10/16 at 04:00; Stop 07/06/17 at 03 :59 Chlorhexidine Gluconate (Chlorhexidine 2% Cloth) 3 pack UNSCH PRN TOP HYGIENIC CARE; Start 07/09/16 at 10:45 Senna/Docusate Sodium (Dayan-Colace) 1 tab BID PO Last administered on 07/13/16 09:34; Start 07/09/16 at 21:00 Magnesium Hydroxide (Milk Of Magnesia Liq) 30 ml Q12H PRN PO MILD - MODERATE CONSTIPATION; Start 07/09/16 at 10:45 Sennosides (Senokot) 17.2 mg Q12H PRN PO MODERATE - SEVERE CONSTIPATION; Start 07/09/16 at 10:45 Bisacodyl (Dulcolax Supp) 10 mg DAILY PRN RECTAL SEVERE CONSITIPATION; Start at 10:45 Lactulose (Lactulose Liq) 30 ml DAILY PRN PO SEVERE CONSITIPATION Last administered on 07/10/16 08:19; Start 07/09/16 at 10:45 Methylprednisolone Sodium Succinate 60 mg 60 mg Q8HR IV PUSH Last administered on 07/11/16 06:24; Start 07/09/16 at 14:00; Stop 07/11/16 at 09:45; Status DC Cefepime HCl 2000 mg/Sodium Chloride 100 ml @ 200 mls/hr Q12H IV ; Start at 12:00; Stop 07/09/16 at 14:26; Status DC Azithromycin 500 mg/Sodium Chloride 250 ml @ 250 mls/hr Q24H IV Last administered on 07/10/16 12:01; Start 07/09/16 at 11:00; Stop 07/10/16 at 16:43; Status DC Sodium Chloride 1,000 ml @ 999 mls/hr BOLUS ONCE IV Last administered on 15:21; Start 07/09/16 at 15:00; Stop 07/09/16 at 16:00; Status DC Vancomycin HCl/ Sodium Chloride (Vancomycin Inj/ NS 250 ml Inj) 250 ml @ 250 mls/hr ONCE ONCE IV Last administered on 07/09/16 16:12; Start 07/09/16 at 15: 00; Stop 07/09/16 at 15:59; Status DC Acetaminophen/ Hydrocodone Bitart ([place] 10-325 Mg) 1 tab Q8HR PRN PO PAIN Last administered on 07/10/16 03:03; Start 07/09/16 at 14:30; Stop 07/10/16 at 14: 25; Status DC Alprazolam 0.5 mg 0.5 mg Q8H PRN PO anxiety Last administered on 07/13/16 05:38 ; Start 07/09/16 at 14:30 Potassium Chloride 100 ml @ 50 mls/hr Q2H PRN IV For Potassium 2.8 - 3.2 mEq/L ; Start 07/09/16 at 14:30; Stop 07/11/16 at 14:32; Status DC Potassium Chloride (KCl 20 Meq Premix Inj) 100 ml @ 50 mls/hr Q2H PRN IV For Potassium 2.8 - 3.2 mEq/L; Start 07/09/16 at 14:30; Stop 07/11/16 at 14:32; Status DC Potassium Bicarb/ Potassium Chloride 50 meq 50 meq UNSCH PRN PO For Potassium 3.3 - 3.5 mEq/L; Start 07/09/16 at 14:30 Potassium Chloride 100 ml @ 25 mls/hr UNSCH PRN IV For Potassium 3.3 - 3.5 mEq /L Last administered on 07/10/16t 06:39; Start 07/09/16 at 14:30; Stop 07/11/16 at 14:32; Status DC Potassium Chloride 100 ml @ 50 mls/hr Q2H PRN IV For Potassium 3.3 - 3.5 mEq/L ; Start 07/09/16 at 14:30; Stop 07/11/16 at 14:32; Status DC Magnesium Sulfate/ Sodium Chloride (Magnesium Sulfate Inj/NS Inj) 100 ml @ 50 mls/hr UNSCH PRN IV For Magnesium 0.9 - 1.1 mg/dL; Start 07/09/16 at 14:30; Stop 07/11/16 at 14:32; Status DC Magnesium Oxide 800 mg 800 mg UNSCH PRN PO For Magnesium 1.2 - 1.6 mg/dL; Start 07/09/16 at 14:30; Stop 07/11/16 at 14:23; Status DC Magnesium Sulfate/ Sodium Chloride (Magnesium Sulfate Inj/NS Inj) 100 ml @ 50 mls/hr UNSCH PRN IV For Magnesium 1.2 - 1.6 mg/dL; Start 07/09/16 at 14:30; Stop 07/11/16 at 14:32; Status DC Potassium Phosphate 2000 mg 2,000 mg Q4H PRN PO For Phosphorus < 2.5 mg/dL; Start 07/09/16 at 14:30; Stop 07/11/16 at 14:32; Status DC Sodium Phosphate/ Sodium Chloride (Sodium Phosphate Inj/NS 250 ml Inj) 250 ml @ 42 mls/hr UNSCH PRN IV For Phosphorus < 2.5 mg/dL; Start 07/09/16 at 14:30; Stop 07/11/16 at 14:32; Status DC Potassium Phosphate 2000 mg 2,000 mg UNSCH PRN PO/TUBE SEE LABEL COMMENTS; Start 07/09/16 at 14:20; Stop 07/11/16 at 14:32; Status DC Potassium Phosphate 30 mmol/ Sodium Chloride 260 ml @ 42 mls/hr UNSCH PRN IV SEE LABEL COMMENTS; Start 07/09/16 at 14:20; Stop 07/11/16 at 14:32; Status DC Piperacillin Sod/ Tazobactam Sod (Zosyn 4.5 Gm Premix) 100 ml @ 200 mls/hr Q6H IV Last administered on 07/11/16 09:44; Start 07/09/16 at 16:00; Stop 07/11/16 at 17:51; Status DC Pneumococcal Polyvalent Vaccine (Pneumovax-23 Inj) 25 mcg ONCE ONCE IM ; Start 07/10/16 at 10:00; Stop 07/10/16 at 10:13; Status DC Iohexol 97 ml 97 ml STK-MED ONCE IV Last administered on 07/09/16 17:23; Start 07/09/16 at 17:23; Stop 07/09/16 at 17:24; Status DC Sodium Chloride 1,000 ml @ 999 mls/hr Q1H1M IV Last administered on 07/09/16 19:46; Start 07/09/16 at 18:45; Stop 07/09/16 at 20:45; Status DC Sodium Chloride 1,000 ml @ 1,000 mls/hr Q1H IV Last administered on 07/09/16 23:27; Start 07/09/16 at 22:27; Stop 07/10/16 at 00:26; Status DC Norepinephrine Bitartrate 250 ml @ 0 mls/hr TITRATE IV Last administered on 07/10 02:59; Start 07/10/16 at 02:00; Stop 07/11/16 at 10:04; Status DC Pharmacy Profile Note 0 ml @ 0 mls/hr UNSCH OTHER ; Start 07/10/16 at 07:30; Stop 07/11/16 at 11:31; Status DC Vancomycin HCl/ Sodium Chloride (Vancomycin Inj/ NS 250 ml Inj) 262.5 ml @ 250 mls/hr Q12H IV Last administered on 07/11/16 09:44; Start 07/10/16 at 10:00; Stop 07/11/16 at 11:31; Status DC Miscellaneous Information SPECIFIC LAB TO BE DRAWN:VANCO TROUGH DATE... ONCE ONCE .XX Last administered on 07/11/16 09:44; Start 07/11/16 at 09:45; Stop 07/11 at 09:46; Status DC Acetaminophen/ Hydrocodone Bitart ([place] 7.5-325 Mg) 1 tab Q4H PRN PO back pain Last administered on 07/13/16 09:42; Start 07/10/16 at 14:30 Acetaminophen (Ofirmev Inj) 1,000 mg ONCE ONCE IV Last administered on 14:52; Start 07/10/16 at 15:00; Stop 07/10/16 at 15:03; Status DC Nystatin (Mycostatin Powder) 1 applic Q8HR TOPICAL Last administered on 13:01; Start 07/10/16 at 15:30 Acetaminophen/ Hydrocodone Bitart ([place] 7.5-325 Mg) 1 tab Q4H PRN PO back pain; Start 07/10/16 at 14:30; Status UNV Acetaminophen (Ofirmev Inj) 1,000 mg ONCE ONCE IV ; Start 07/10/16 at 14:30; Stop 07/10/16 at 14:31; Status UNV Nicotine (Habitrol 21 Mg Patch.24 Hr) 1 patch DAILY T-DERMAL Last administered on 07/13/16 09:34; Start 07/10/16 at 14:30 Miscellaneous Information 1 DAILY T-DERMAL Last administered on 07/13/16 09:00 ; Start 07/11/16 at 09:00 Azithromycin (Zithromax) 500 mg DAILY PO Last administered on 07/13/16 09:34; Start 07/11/16 at 09:00 Albuterol/ Ipratropium (Duoneb Neb) 1 ampule Q6HR NEB INH Last administered on 07/13/16 08:13; Start 07/11/16 at 16:00 Methylprednisolone Sodium Succinate (SoluMEDROL INJ) 40 mg Q12HR IV PUSH Last administered on 07/13/16 09:34; Start 07/11/16 at 21:00 Loperamide HCl (Imodium) 2 mg NOW ONCE PO Last administered on 07/11/16 10:20 ; Start 07/11/16 at 10:15; Stop 07/11/16 at 10:16; Status DC Amoxicillin/ Clavulanate Potassium (Augmentin) 500 mg Q8HR PO Last administered on 07/13/16 05:39; Start 07/11/16 at 18:00 Duloxetine HCl (Cymbalta Dr) 30 mg DAILY PO Last administered on 07/13/16 09:35 ; Start 07/12/16 at 09:00 Iohexol (Omnipaque 350 Inj) 74 ml STK-MED ONCE IV Last administered on 17:11; Start 07/12/16 at 17:11; Stop 07/12/16 at 17:12; Status DC Enalaprilat (Vasotec Inj) 1.25 mg Q6H PRN IV PUSH bp>160/90; Start 07/12/16 at 20:45 Clonidine (Catapres) 0.1 mg Q6H PRN PO bp>160/90 Last administered on 07/13/16 09:42; Start 07/12/16 at 20:45 Enalaprilat (Vasotec Inj) 1.25 mg NOW ONCE IV PUSH Last administered on 21:09; Start 07/12/16 at 21:00; Stop 07/12/16 at 21:01; Status DC Ondansetron HCl (Zofran Inj) 4 mg Q6H PRN IV PUSH NAUSEA OR VOMITING Last administered on 07/13/16 00:25; Start 07/13/16 at 00:00 Furosemide (Lasix Inj) 20 mg ONCE ONCE IV PUSH Last administered on 07/13/16 00:25; Start 07/13/16 at 00:00; Stop 07/13/16 at 00:01; Status DC Furosemide (Lasix Inj) 20 mg BID@18 IV PUSH Last administered on 07/13/16 11 :20; Start 07/13/16 at 11:00 A/P Problem List: (1) Severe sepsis ICD Code: A41.9 Status: Acute (2) Acute respiratory failure with hypoxia ICD Code: J96.01 Status: Acute (3) COPD exacerbation ICD Code: J44.1 Status: Acute (4) HCAP (healthcare-associated pneumonia) ICD Code: J18.9 Status: Acute (5) Lower abdominal pain ICD Code: R10.30 Status: Acute (6) Status post vaginal hysterectomy ICD Code: Z90.710 Status: Acute (7) COPD (chronic obstructive pulmonary disease) ICD Code: J44.9 Status: Acute Assessment and Plan Acute hypoxemic respiratory failure Healthcare associated pneumonia COPD exacerbation -Currently on NC, use BiPAP as needed -Broad-spectrum antibiotics with Zosyn and azithromycin and vancomycin. Vancomycin was discontinued yesterday. Zosyn discontinued today. Patient is on Augmentin and azithromycin by mouth. -Patient currently on cimetidine 40 mg by mouth twice a day. No audible wheezing her today. Will switch to by mouth prednisone. Wheezing improved with Lasix. Repeat chest x-ray done yesterday which showed vascular congestion with cardiomegaly. BNP is 591. Will continue to diuresis with Lasix 20 mg IV twice a day. Strict ins and outs. Monitor creatinine. -DuoNeb every 4 hours scheduled and when necessary -Wean oxygen as tolerated. Patient will need pulmonary function tests as outpatient. Congestive heart failure -Most likely due to assesses fluids given during hospitalization. -Based on clinical exam, chest x-ray, and elevated BNP. -Pending echo. -Patient currently on Lasix. Anxiety disorder -Xanax 0.5 mg by mouth twice a day for anxiety -Continue hydrocodone for pain Septic shock -Normal saline IV fluids total 4 L boluses and 84 mL per hour-change IV to KVO -Trend lactic acid - Levophed DCd s/p TVH, BSO, A/P repair and urethropexy on 06/24/16 Possible pelvic abscess -CT abdomen pelvis- showed possible fluid collection posterior to the bladder, possible abscess -Dr. Faust recommends continued medical management, she does not think there is an abscess -Monitor renal function closely. Severe sepsis Healthcare associated pneumonia Possible pelvic abscess and ?post op infection -See management as above. -Infectious disease is following. Clinically she is improving. PROPH: -Bilateral lower extremity SCDs. Lovenox for DVT prophylaxis. IV Protonix 40 mg daily for GI prophylaxis Discharge Planning Patient is still on oxygen most likely secondary to congestive heart failure. Will need IV Lasix. Problem Qualifiers (1) COPD (chronic obstructive pulmonary disease): Qualified Code: J44.9 - Chronic obstructive pulmonary disease, unspecified COPD type Niyah Louie MD Jul 13, 2016 11:46
--- NOTE | 2016-07-13 16:52 | HHI.IDPN ---
Subjective Subjective Remarks is a 55 y/o CF with PMHx of COPD, tobacco abuse, dyslipidemia and anxiety who had undergone total vaginal hysterectomy with BSO, Ant repair on . Patent reports post discharge she felt ok for a day or two after which she developed fevers 104 F with occ chills, body ache, backache, suprapubic pain and RLQ pain. She endorses nausea but no vomiting. She subsequently developed a cough with no phlegm. She was brought to the [facility] ER for shortness of of breath and productive cough with clear colored phlegm. On arrival patient had temperature of 103. She has history of COPD. Initial oxygen saturation of 79%, tachycardic in the 120s. Patient reports having a hysterectomy 2 weeks ago but has no vaginal discharge or bleeding or significant pelvic pain. Blood cultures were sent before initiating antibiotics. WBC count 15.6 with 96% neutrophils. Chest x-ray did not show significant consolidation, however CT of the chest showed bibasilar infiltrates consistent with pneumonia. Patient underwent sepsis workup with cultures and was started on empiric antibiotics. Patient underwent a CT A/P which showed a fluid collection in the abdomen. From review of notes no plans for any surgical or IR intervention and continue IV antibiotics. At time of my evaluation, patient is in the ICU. She has had periods of hypothermia but not on pressors. She has a arroyo left in place for healing of ureteropexy per [employer] notes. UO is good. She is mentating fairly well and her only complaint is abdominal pain. She denies any nausea or vomiting. Tmax 103 and temps appear defervescing. ID is consulted for evaluation and Mment of HCAP and possible Intra abdominal abscess. Overnight events reviewed No fevers No rash WBC decreasing Tolerating oral antibiotics. Complains of back pain. Per review of it appears pt was on chronic narcotics for back pain prior to this admission. Antibiotics Augmentin oral Azithro oral Lines Line sites with no e.o infection Past Medical History reviewed. Allergies: Coded Allergies: No Known Allergies (Unverified , 06/24/16) Objective . Vital Signs Date Time Temp Pulse Resp B/P Pulse Ox O2 Delivery O2 Flow Rate FiO2 07/13/16 16:00 97.8 65 18 163/77 90 07/13/16 15:16 95 Nasal Cannula 3.00 07/13/16 12:00 97.8 51 18 141/64 92 07/13/16 12:00 Nasal Cannula 2.00 07/13/16 08:15 96 Nasal Cannula 4.00 07/13/16 08:00 Nasal Cannula 3.00 07/13/16 08:00 98.2 53 18 164/74 97 07/13/16 04:00 97.8 60 20 149/66 93 07/13/16 03:56 91 Nasal Cannula 4.00 07/13/16 00:00 98.1 60 20 149/66 93 07/12/16 22:11 66 20 145/79 07/12/16 20:13 90 Nasal Cannula 4.00 07/12/16 20:00 Nasal Cannula 3.00 07/12/16 20:00 97.7 62 20 152/73 94 07/12/16 07/12/16 07/13/16 15:00 23:00 07:00 Output Total 2400 ml Balance -2400 ml Output Urine Total 2400 ml # Bowel Movements 0 . Laboratory Tests Test 07/12/16 05:56 White Blood Count 13.8 TH/MM3 Red Blood Count 3.33 MIL/MM3 Hemoglobin 9.8 GM/DL Hematocrit 30.0 % Mean Corpuscular Volume 90.1 FL Mean Corpuscular Hemoglobin 29.4 PG Mean Corpuscular Hemoglobin 32.7 % Concent Red Cell Distribution Width 14.8 % Platelet Count 339 TH/MM3 Mean Platelet Volume 7.5 FL Neutrophils (%) (Auto) 81.8 % Lymphocytes (%) (Auto) 12.1 % Monocytes (%) (Auto) 5.5 % Eosinophils (%) (Auto) 0.2 % Basophils (%) (Auto) 0.4 % Neutrophils # (Auto) 11.3 TH/MM3 Lymphocytes # (Auto) 1.7 TH/MM3 Monocytes # (Auto) 0.8 TH/MM3 Eosinophils # (Auto) 0.0 TH/MM3 Basophils # (Auto) 0.1 TH/MM3 CBC Comment AUTO DIFF Differential Total Cells 100 Counted Neutrophils % (Manual) 85 % Band Neutrophils % 6 % Lymphocytes % 6 % Monocytes % 2 % Neutrophils # (Manual) 12.7 TH/MM3 Metamyelocytes 1 % Differential Comment FINAL DIFF MANUAL Platelet Estimate NORMAL Platelet Morphology Comment NORMAL Red Cell Morphology Comment NORMAL Laboratory Tests Test 07/12/16 07/13/16 05:56 06:55 Sodium Level 145 MEQ/L Potassium Level 3.6 MEQ/L Chloride Level 111 MEQ/L Carbon Dioxide Level 27.0 MEQ/L Anion Gap 7 MEQ/L Blood Urea Nitrogen 23 MG/DL Creatinine 0.44 MG/DL Estimat Glomerular Filtration 147 ML/MIN Rate Random Glucose 98 MG/DL Calcium Level 8.3 MG/DL Magnesium Level 2.3 MG/DL Total Bilirubin 0.3 MG/DL Aspartate Amino Transf 59 U/L (AST/SGOT) Alanine Aminotransferase 55 U/L (ALT/SGPT) Alkaline Phosphatase 247 U/L B-Type Natriuretic Peptide 453 PG/ML 591 PG/ML Total Protein 5.8 GM/DL Albumin 2.2 GM/DL Imaging Last Impressions Chest X-Ray 07/12/16 0600 Signed Impressions: Service Date/Time: Tuesday, July 12, 2016 05:50 - CONCLUSION: Diffuse pulmonary vascular congestion and cardiomegaly all suggest failure. Bilateral pleural effusions increased since the third. Silas Emery MD Chest CT 07/09/16 0000 Signed Impressions: Service Date/Time: Saturday, July 09, 2016 11:02 - CONCLUSION: 1. Bilateral lower lobe dependent atelectasis versus consolidation indicating possible aspiration. 2. 9 x 5 mm nodular density abutting the right major fissure in the right midlung. Recommend three-month followup noncontrast chest CT. Tomas Clark MD Abdomen/Pelvis CT 07/09/16 0000 Signed Impressions: Service Date/Time: Saturday, July 09, 2016 17:20 - CONCLUSION: 1. Extraluminal gas and fluid collection in the central pelvis. The most likely etiology in a patient of this age would be subacute diverticulitis with subsequent abscess formation. The gas and fluid collection is also adjacent to a loop of thickened small bowel. Inflammatory bowel disease would also be in the differential diagnosis. 2. Right-sided sacral and pubic rami insufficiency fractures likely subacute chronic. 3. Prominent bilateral lower lobe pulmonary consolidation Tomas Clark MD ADDENDUM: Additional clinical data is now available. This patient underwent a hysterectomy 2 weeks ago. The air and fluid within the pelvis is felt to relate to postoperative infection as opposed to an acute diverticulitis. Although there is some liquefaction there are multiple small pockets of air and no large drainable collection. I feel there is incomplete liquefaction at this point. If symptoms persist a followup CT can be performed to see if there is a drainable collection at that time. I do not see anything to suggest bowel or bladder injury. I spoke with and Dr Faust concerning this. Orlin Santana Jr., MD Physical Exam GENERAL: This is a well-nourished, well-developed patient, in no apparent distress. SKIN: No rashes, ecchymoses or lesions. Cool and dry. HEAD: Atraumatic. Normocephalic. No temporal or scalp tenderness. EYES: Pupils equal round and reactive. Extraocular motions intact. No scleral icterus. No injection or drainage. ENT: Nose without bleeding, purulent drainage or septal hematoma. Throat without erythema, tonsillar hypertrophy or exudate. Uvula midline. Airway patent. NECK: Trachea midline. Supple, nontender, no meningeal signs. CARDIOVASCULAR: Regular rate and rhythm without murmurs, gallops, or rubs. RESPIRATORY: Clear to auscultation. Breath sounds equal bilaterally. No wheezes , rales, or rhonchi. GASTROINTESTINAL: Abdomen soft, non-tender, nondistended. MUSCULOSKELETAL: Extremities without clubbing, cyanosis, or edema. NEUROLOGICAL: Awake and alert. Grossly non focal Psych: cooperative IV line sites with no e.o infection. Assessment & Plan Remarks Sepsis present on admission Possible HCAP (pneumonia after recent procedure) Possible Intra abdominal abscess. Total vaginal hysterectomy with BSO, Ant repair on 06/24/16 COPD acute exacerbation Anxiety Hypoalbuminemia Recs: DC Zosyn IV DC Vanco IV (target 15-20) DC Azithro Continue Augmentin oral started by me after review of CT A/P Intra abd abscess appears improving. CXR c.w fluid overload. Has positive fluid balance based on I/O review. Mment per primary team ECHO pending. Ok to discharge home from ID standpoint. Oral augmentin stop date 07/22/2016. Will sign off please call back if any change in clinical condition or questions. Ann Abraham MD Jul 13, 2016 16:52
[2016-07-13] MEDS: SODIUM CHLORIDE 0.9% FLUSH 10 ML FLUSH IVF PRN (20:50)
[2016-07-14] VITALS (8 sets, daily range): BP systolic 104–150; BP diastolic 55–78; PULSE 55–78; RESP 16–18; TEMP 97.6–98.1; O2SAT 92–95
[2016-07-14] MEDS: RESP: ALBUTEROL 2.5 MG/IPRATROPIUM 0.5 MG NEB (SCH) INH ×4 (03:29→21:17)
[2016-07-14] MEDS: CHLORHEXIDINE GLUCONATE 2 % 1 PACK (2 CLOTHS) TOP SCH (04:00)
[2016-07-14] MEDS: ACETAMINOPHEN/HYDROcodone 325 MG/7.5 MG TAB PO PRN ×5 (06:10→22:48)
[2016-07-14] MEDS: AMOXICILLIN/CLAVULANATE K 500 MG TAB PO SCH ×3 (06:10→20:43)
[2016-07-14] MEDS: NYSTATIN 100,000 U/GM PWD 15 GM BTL TOPICAL SCH ×3 (06:11→20:43)
[2016-07-14] MEDS: ALPRAZolam 0.5 MG TAB PO PRN ×3 (06:26→22:48)
[2016-07-14 07:33] LABS: HEMATOCRIT 34.8 % (35.0-46.0); MEAN CELL VOLUME 88.9 FL (80.0-100.0); MEAN CORPUSCULAR HEMOGLOBIN 29.3 PG (27.0-34.0); MEAN CORPUSCULAR HGB CONC 32.9 % (32.0-36.0); PLATELET COUNT 454 TH/MM3 (150-450); RED BLOOD COUNT 3.91 MIL/MM3 (4.00-5.30); RED CELL DISTRIBUTION WIDTH 14.8 % (11.6-17.2); REVIEW FLAG FINAL; WHITE BLOOD COUNT 14.2 TH/MM3 (4.0-11.0)
[2016-07-14 08:00] LABS: BICARBONATE 33.1 MEQ/L (21.0-32.0); MAGNESIUM 2.3 MG/DL (1.5-2.5); POTASSIUM 3.5 MEQ/L (3.5-5.1)
[2016-07-14] MEDS: DULoxetine HCl DR 30 MG CAP PO SCH (08:07)
[2016-07-14] MEDS: methylPREDNISolone SOD SUCC 40 MG/1 ML VIAL IV PUSH SCH ×2 (08:09→20:42)
[2016-07-14] MEDS: NICOTINE 21 MG/24 HR PATCH T-DERMAL SCH (08:09)
[2016-07-14] MEDS: REMOVE OLD PATCH T-DERMAL SCH (08:09)
[2016-07-14] MEDS: DOCUSATE SODIUM 50 MG/SENNA 8.6 MG TAB PO SCH ×2 (08:10→20:43)
[2016-07-14] MEDS: FUROSEMIDE 20 MG/2 ML VIAL IV PUSH SCH ×2 (08:10→17:33)
[2016-07-14] MEDS: ENOXAPARIN SODIUM 40 MG/0.4 ML SYRINGE SQ SCH (11:39)
[2016-07-14] MEDS ORDERED: AUGM500T7 PO (14:13)
[2016-07-14] MEDS ORDERED: NYST10007 TOPICAL (14:13)
[2016-07-14] MEDS ORDERED: DULO1CAP2 PO (14:13)
[2016-07-14] MEDS ORDERED: FURO1TAB62 PO (14:14)
--- NOTE | 2016-07-14 14:16 | HHI.DCPOC ---
Discharge Care Plan Diagnosis: (1) HCAP (healthcare-associated pneumonia) (2) Acute respiratory failure with hypoxia (3) COPD exacerbation (4) Pelvic abscess in female Goals to Promote Your Health * To prevent worsening of your condition and complications * To maintain your health at the optimal level Directions to Meet Your Goals Take your medications as prescribed Follow your dietary instruction Follow activity as directed Keep your appointments as scheduled Take your immunizations and boosters as scheduled If your symptoms worsen call your PCP, if no PCP go to Urgent Care Center or Emergency Room Smoking is Dangerous to Your Health. Avoid second hand smoke Call the 24-hour hour crisis hotline for domestic abuse at Niyah Louie MD Jul 14, 2016 14:16
--- NOTE | 2016-07-14 14:17 | HHI.DS ---
Discharge Summary Admission Date Jul 09, 2016 at 10:38 Discharge Date: Jul 15, 2016 Admitting Diagnosis acute hypoxic resp failure,COPD,bronchitis (1) Severe sepsis ICD Code: A41.9 Diagnosis: Principal (2) Acute respiratory failure with hypoxia ICD Code: J96.01 Diagnosis: Principal (3) COPD exacerbation ICD Code: J44.1 Diagnosis: Principal (4) HCAP (healthcare-associated pneumonia) ICD Code: J18.9 Diagnosis: Principal (5) Lower abdominal pain ICD Code: R10.30 Diagnosis: Principal (6) Status post vaginal hysterectomy ICD Code: Z90.710 Diagnosis: Secondary (7) Pelvic abscess in female ICD Code: N73.9 Diagnosis: Principal (8) CHF (congestive heart failure) ICD Code: I50.9 Diagnosis: Principal Procedures See hospital course. Brief History - From Admission Patient is a 55-year-old female with past medical history significant for COPD, tobacco abuse, dyslipidemia and anxiety who had undergone total vaginal hysterectomy with bso, Ant repair on 06/24/16. She was brought to the [place] ER for shortness of of breath and productive cough with clear colored phlegm. On arrival patient had temperature of 103. She has history of COPD. Initial oxygen saturation of 79%, tachycardic in the 120s. Patient reports having a hysterectomy 2 weeks ago but has no vaginal discharge or bleeding or significant pelvic pain. After establishing IV line patient had 2 L normal saline bolus and IV Zosyn. Blood cultures were sent before initiating antibiotics. WBC count 15.6 with 96% neutrophils. Chest x-ray did not show significant consolidation, however CT of the chest showed bibasilar infiltrates consistent with pneumonia. Patient received 3 DuoNeb breathing treatments and IV Solu-Medrol and was placed on nonrebreather with improvement in saturation. I evaluated the patient in the ICU. She appears critically ill. Subjectively she feels that breathing might have improved slightly. Patient do complain of lower abdominal pain now CBC/BMP: 07/14/16 0607 07/14/16 0657 Significant Findings Laboratory Tests Test 07/12/16 07/13/16 07/14/16 07/14/16 05:56 06:55 06:07 06:57 White Blood Count 13.8 TH/MM3 14.2 TH/MM3 (4.0-11.0) (4.0-11.0) Red Blood Count 3.33 MIL/MM3 3.91 MIL/MM3 (4.00-5.30) (4.00-5.30) Hemoglobin 9.8 GM/DL 11.5 GM/DL (11.6-15.3) (11.6-15.3) Hematocrit 30.0 % 34.8 % (35.0-46.0) (35.0-46.0) Neutrophils (%) (Auto) 81.8 % (16.0-70.0) Neutrophils # (Auto) 11.3 TH/MM3 (1.8-7.7) Neutrophils % (Manual) 85 % (16-70) Lymphocytes % 6 % (9-44) Neutrophils # (Manual) 12.7 TH/MM3 (1.8-7.7) Chloride Level 111 MEQ/L (98-107) Blood Urea Nitrogen 23 MG/DL (7-18) Creatinine 0.44 MG/DL (0.50-1.00) Calcium Level 8.3 MG/DL (8.5-10.1) Aspartate Amino Transf 59 U/L (15-37) (AST/SGOT) Alanine Aminotransferase 55 U/L (10-53) (ALT/SGPT) Alkaline Phosphatase 247 U/L (45-117) B-Type Natriuretic Peptide 453 PG/ML 591 PG/ML (0-100) (0-100) Total Protein 5.8 GM/DL (6.4-8.2) Albumin 2.2 GM/DL (3.4-5.0) Platelet Count 454 TH/MM3 (150-450) Carbon Dioxide Level 33.1 MEQ/L (21.0-32.0) Random Glucose 112 MG/DL (74-106) Imaging Last Impressions Chest X-Ray 07/12/16 0600 Signed Impressions: Service Date/Time: Tuesday, July 12, 2016 05:50 - CONCLUSION: Diffuse pulmonary vascular congestion and cardiomegaly all suggest failure. Bilateral pleural effusions increased since the third. Silas Emery MD Pelvis CT 07/11/16 0000 Signed Impressions: Service Date/Time: Tuesday, July 12, 2016 16:25 - CONCLUSION: 1. Interval improvement with less apparent abscess identified. There is no free air. 2. Trace free fluid is evident. Follow-up with CT scan of the pelvis with oral and intravenous contrast. Michael Leon MD FACR Chest CT 07/09/16 0000 Signed Impressions: Service Date/Time: Saturday, July 09, 2016 11:02 - CONCLUSION: 1. Bilateral lower lobe dependent atelectasis versus consolidation indicating possible aspiration. 2. 9 x 5 mm nodular density abutting the right major fissure in the right midlung. Recommend three-month followup noncontrast chest CT. Tomas Clark MD Abdomen/Pelvis CT 07/09/16 0000 Signed Impressions: Service Date/Time: Saturday, July 09, 2016 17:20 - CONCLUSION: 1. Extraluminal gas and fluid collection in the central pelvis. The most likely etiology in a patient of this age would be subacute diverticulitis with subsequent abscess formation. The gas and fluid collection is also adjacent to a loop of thickened small bowel. Inflammatory bowel disease would also be in the differential diagnosis. 2. Right-sided sacral and pubic rami insufficiency fractures likely subacute chronic. 3. Prominent bilateral lower lobe pulmonary consolidation Tomas Clark MD ADDENDUM: Additional clinical data is now available. This patient underwent a hysterectomy 2 weeks ago. The air and fluid within the pelvis is felt to relate to postoperative infection as opposed to an acute diverticulitis. Although there is some liquefaction there are multiple small pockets of air and no large drainable collection. I feel there is incomplete liquefaction at this point. If symptoms persist a followup CT can be performed to see if there is a drainable collection at that time. I do not see anything to suggest bowel or bladder injury. I spoke with and Dr Faust concerning this. Orlin Santana Jr., MD PE at Discharge GENERAL: in NAD CARDIOVASCULAR: Regular rate and rhythm without murmurs, gallops, or rubs. RESPIRATORY: Diffuse expiratory wheezing. No accessory muscle use. GASTROINTESTINAL: Abdomen soft, non-tender, nondistended. MUSCULOSKELETAL: No cyanosis, or edema. BACK: Nontender without obvious deformity. No CVA tenderness. Transfer Summary Patient is a 55-year-old female with past medical history significant for COPD, tobacco abuse, dyslipidemia and anxiety who had undergone TVH, BSO, A/P repair and urethropexy on 06/24/16. She was brought to the [place] ER for shortness of of breath and productive cough with clear colored phlegm. On arrival patient had temperature of 103. She has history of COPD. Initial oxygen saturation of 79%, tachycardic in the 120s. Patient reports having a hysterectomy 2 weeks ago but has no vaginal discharge or bleeding or significant pelvic pain. After establishing IV line patient had 2 L normal saline bolus and IV Zosyn. Blood cultures were sent before initiating antibiotics. WBC count 15.6 with 96% neutrophils. Chest x-ray did not show significant consolidation, however CT of the chest showed bibasilar infiltrates consistent with pneumonia. Patient received 3 DuoNeb breathing treatments and IV Solu-Medrol and was placed on nonrebreather with improvement in saturation. I evaluated the patient in the ICU. She appears critically ill. Subjectively she feels that breathing might have improved slightly. Patient do complain of lower abdominal pain now SUBJ 07/10: CT chest showed evidence of bibasilar pneumonia, CT abdomen pelvis showed evidence of possible pelvic abscess. With recent surgery this could indicate postop infection, Dr. Faust from [facility] consulted-recommends continued medical management at this time with no surgery. Started on Levophed for septic shock, currently off as MAP >65 07/11: Patient is sitting up in chair blood pressure stable. No fever white count trending down. Off pressors since 24 hours Pt update on day of discharge Follow-up for acute respiratory failure Patient very anxious to go home. Her fianc is at the bedside. Patient denies any SOB or cough. Patient stated that she does not feel like she needs her oxygen. Otherwise she has no other complaints. Hospital Course Acute hypoxemic respiratory failure Healthcare associated pneumonia COPD exacerbation -Patient was put on nasal cannula, use BiPAP as needed -Broad-spectrum antibiotics with Zosyn and azithromycin and vancomycin. Vancomycin was on 07/12/16. Zosyn discontinued 07/13/16. Patient was then put on Augmentin and azithromycin by mouth. She was then discharged and Augmentin. -Patient initially put on Solu-Medrol but then was transitioned to oral prednisone. She continued wheezing so a Repeat chest x-ray done 07/12/16 which showed vascular congestion with cardiomegaly. BNP is 591. Patient was started on Lasix in which the wheezing resolved and shortness of breathing improved drastically. -DuoNeb every 4 hours scheduled and when necessary -Wean oxygen as tolerated. Patient had a walk test in which recommended home oxygen. Congestive heart failure -Most likely due to excessive fluid fluids given during hospitalization. -Based on clinical exam, chest x-ray, and elevated BNP. -Echo showed mild regurgitation otherwise just fraction normal. -Patient treated with IV Lasix and then later transitioned to by mouth Lasix. Patient total follow with her PCP and repeat a BMP. Patient also educated on congestive heart failure. Anxiety disorder -Xanax 0.5 mg by mouth twice a day for anxiety -Continue hydrocodone for pain Septic shock -Patient was given IV fluids and treated with IV antibiotics. She was also put on pressors with levophed in which she was gradually weaned off of. s/p TVH, BSO, A/P repair and urethropexy on 06/24/16 Possible pelvic abscess -CT abdomen pelvis- showed possible fluid collection posterior to the bladder, possible abscess -Dr. Faust recommends continued medical management, she does not think there is an abscess -Monitor renal function closely. Severe sepsis Healthcare associated pneumonia Possible pelvic abscess and ?post op infection -See management as above. -Infectious disease is following. Clinically she is improving. -Per infectious disease continue with Augmentin until 07/22/16. Pt Condition on Discharge: Good Discharge Disposition: Discharge Home Discharge Time: <= 30 minutes Discharge Instructions DIET: Follow Instructions for: Heart Healthy Diet Activities you can perform: Regular-No Restrictions Follow up Referrals: Gastroenterology [facility] - 1 Week with Isabelle Faust MD PCP Follow-up - 1 Week New Medications: Furosemide (Lasix) 20 Mg Tab 20 MG PO BID fluid overloaded #10 Ref 0 TAB Oxygen (O2) (Oxygen (O2)) Device 2 LITER HARISH.CANULA CONTINUOUS Oxygen Concentrator Portable Gaseous 2 L/min via Nasal Canula Continuous For 99 months Prevent Hypoxemia #2 Ref 0 CYLINDER Amoxicillin-Clavulanate (Augmentin) 500-125 mg Tab 500 MG PO Q8HR infection/abscess #[address] Ref [address] (Dul[address]) 30 Mg Capdr 30 MG PO DAILY chronic pain #30 Ref 0 CAP Nystatin Topical (Nystop Topical) 100,000 Unit/Gm Powd 1 APPLIC TOPICAL Q8HR Rash #1 Ref 0 BOTTLE Continued Medications: Alprazolam (Xanax) 1 Mg Tab 1 MG PO BID ANXIETY Ref 0 TAB Hydrocodone-Acetaminophen (Lortab) 10-325 Mg Tab 1 TAB PO Q8HR PRN PAIN Ref 0 TAB Multiple Vitamins W/ Minerals (Centrum) 1 Chew 1 TAB CHEW DAILY Nutritional Supplement Ref 0 TAB Niyah Louie MD Jul 14, 2016 14:17
[2016-07-14] MEDS ORDERED: OXYGENDME NAS.CANULA (14:24)
--- NOTE | 2016-07-14 16:04 | HHI.PR ---
Subjective Remarks Follow-up for respiratory failure Patient stated that her breathing has improved drastically. She wants to go home. Denies any shortness of breathing and cough. Patient is on 2 L of nasal cannula. She remains afebrile. Pain is better controlled. Objective Vitals Vital Signs Date Time Temp Pulse Resp B/P Pulse Ox O2 Delivery O2 Flow Rate FiO2 07/14/16 12:26 2.00 07/14/16 12:00 98.0 78 18 104/55 93 07/14/16 10:00 94 Nasal Cannula 2.00 07/14/16 08:00 97.9 55 18 150/72 94 07/14/16 04:00 97.7 61 18 141/75 92 07/14/16 04:00 Nasal Cannula 2.00 07/14/16 00:00 97.6 57 18 136/66 93 07/14/16 00:00 Nasal Cannula 2.00 07/13/16 20:00 98.1 57 16 144/73 94 07/13/16 20:00 Nasal Cannula 2.00 I/O 07/13/16 07/13/16 07/13/16 07/14/16 07/14/16 07/14/16 07:00 15:00 23:00 07:00 15:00 23:00 Intake Total 960 ml 240 ml 0 ml Output Total 2400 ml 1000 ml 550 ml 500 ml Balance -2400 ml -40 ml -310 ml -500 ml Intake Oral 960 ml 240 ml 0 ml Output Urine Total 2400 ml 1000 ml 550 ml 500 ml # Bowel Movements 0 1 0 0 Result Diagram: 07/14/16 0607 07/14/16 0657 Objective Remarks GENERAL: in NAD CARDIOVASCULAR: Regular rate and rhythm without murmurs, gallops, or rubs. RESPIRATORY: Clear auscultation bilaterally. No accessory muscle use. GASTROINTESTINAL: Abdomen soft, non-tender, nondistended. MUSCULOSKELETAL: No cyanosis, or edema. BACK: Nontender without obvious deformity. No CVA tenderness. Medications and IVs Current Medications Sodium Chloride (NS Flush) 2 ml UNSCH PRN IVF FLUSH AFTER USING IV ACCESS Last administered on 07/13/16 20:50; Start 07/09/16 at 08:45 Albuterol/ Ipratropium 1 ampule 1 ampule Q15M INH Last administered on 08:47; Start 07/09/16 at 08:45; Stop 07/09/16 at 09:16; Status DC Sodium Chloride 1,000 ml @ 2,000 mls/hr Q30M ONCE IV Last administered on 08:58; Start 07/09/16 at 08:45; Stop 07/09/16 at 09:14; Status DC Piperacillin Sod/ Tazobactam Sod (Zosyn 3.375 Gm Premix) 50 ml @ 100 mls/hr ONCE ONCE IV Last administered on 07/09/16 08:58; Start 07/09/16 at 08:45; Stop 07/09/16 at 09:14; Status DC Albuterol/ Ipratropium (Duoneb Neb) 1 ampule STK-MED ONCE .ROUTE ; Start at 08:39; Stop 07/09/16 at 08:40; Status DC Acetaminophen (Tylenol) 650 mg ONCE ONCE PO Last administered on 07/09/16 08: 59; Start 07/09/16 at 08:45; Stop 07/09/16 at 08:46; Status DC Ibuprofen 600 mg 600 mg ONCE ONCE PO Last administered on 07/09/16 08:59; Start 07/09/16 at 08:45; Stop 07/09/16 at 08:46; Status DC Sodium Chloride (NS 1000 ml Inj) 1,000 ml @ 2,000 mls/hr Q30M ONCE IV Last administered on 07/09/16 08:59; Start 07/09/16 at 09:00; Stop 07/09/16 at 09:29; Status DC Methylprednisolone Sodium Succinate 125 mg 125 mg ONCE ONCE IV PUSH Last administered on 07/09/16 10:34; Start 07/09/16 at 10:15; Stop 07/09/16 at 10:16; Status DC Sodium Chloride (NS 1000 ml Inj) 1,000 ml @ 84 mls/hr [id number] IV Last administered on 07/11/16 09:45; Start 07/09/16 at 10:40; Stop 07/11/16 at 10:04; Status DC Acetaminophen (Tylenol) 650 mg Q6H PRN PO FEVER >101F; Start 07/09/16 at 10:45 Pantoprazole Sodium (Protonix Inj) 40 mg DAILY IV Last administered on 07:54; Start 07/09/16 at 10:45; Stop 07/11/16 at 10:04; Status DC Albuterol/ Ipratropium (Duoneb Neb) 1 ampule Q4HR NEB INH Last administered on 07/11/16 07:36; Start 07/09/16 at 12:00; Stop 07/11/16 at 09:45; Status DC Albuterol/ Ipratropium (Duoneb Neb) 1 ampule Q2HR NEB PRN INH WHEEZING Last administered on 07/12/16 18:27; Start 07/09/16 at 10:45 Enoxaparin Sodium (Lovenox Inj) 40 mg Q24H SQ Last administered on 07/14/16 11: 39; Start 07/09/16 at 12:00 Miscellaneous Information 1 [id number] XX Last administered on 07/09/16 15:21; Start 07/09/16 at 10:45 Chlorhexidine Gluconate (Chlorhexidine 2% Cloth) 3 pack Taper DAILY@04 TOP Last administered on 07/13/16 04:00; Start 07/10/16 at 04:00; Stop 07/06/17 at 03 :59 Chlorhexidine Gluconate (Chlorhexidine 2% Cloth) 3 pack UNSCH PRN TOP HYGIENIC CARE; Start 07/09/16 at 10:45 Senna/Docusate Sodium (Dayan-Colace) 1 tab BID PO Last administered on 07/14/16 08:10; Start 07/09/16 at 21:00 Magnesium Hydroxide (Milk Of Magnesia Liq) 30 ml Q12H PRN PO MILD - MODERATE CONSTIPATION; Start 07/09/16 at 10:45 Sennosides (Senokot) 17.2 mg Q12H PRN PO MODERATE - SEVERE CONSTIPATION; Start 07/09/16 at 10:45 Bisacodyl (Dulcolax Supp) 10 mg DAILY PRN RECTAL SEVERE CONSITIPATION; Start at 10:45 Lactulose (Lactulose Liq) 30 ml DAILY PRN PO SEVERE CONSITIPATION Last administered on 07/10/16 08:19; Start 07/09/16 at 10:45 Methylprednisolone Sodium Succinate 60 mg 60 mg Q8HR IV PUSH Last administered on 07/11/16 06:24; Start 07/09/16 at 14:00; Stop 07/11/16 at 09:45; Status DC Cefepime HCl 2000 mg/Sodium Chloride 100 ml @ 200 mls/hr Q12H IV ; Start at 12:00; Stop 07/09/16 at 14:26; Status DC Azithromycin 500 mg/Sodium Chloride 250 ml @ 250 mls/hr Q24H IV Last administered on 07/10/16 12:01; Start 07/09/16 at 11:00; Stop 07/10/16 at 16:43; Status DC Sodium Chloride 1,000 ml @ 999 mls/hr BOLUS ONCE IV Last administered on 15:21; Start 07/09/16 at 15:00; Stop 07/09/16 at 16:00; Status DC Vancomycin HCl/ Sodium Chloride (Vancomycin Inj/ NS 250 ml Inj) 250 ml @ 250 mls/hr ONCE ONCE IV Last administered on 07/09/16 16:12; Start 07/09/16 at 15: 00; Stop 07/09/16 at 15:59; Status DC Acetaminophen/ Hydrocodone Bitart ([place] 10-325 Mg) 1 tab Q8HR PRN PO PAIN Last administered on 07/10/16 03:03; Start 07/09/16 at 14:30; Stop 07/10/16 at 14: 25; Status DC Alprazolam 0.5 mg 0.5 mg Q8H PRN PO anxiety Last administered on 07/14/16 14:43 ; Start 07/09/16 at 14:30 Potassium Chloride 100 ml @ 50 mls/hr Q2H PRN IV For Potassium 2.8 - 3.2 mEq/L ; Start 07/09/16 at 14:30; Stop 07/11/16 at 14:32; Status DC Potassium Chloride (KCl 20 Meq Premix Inj) 100 ml @ 50 mls/hr Q2H PRN IV For Potassium 2.8 - 3.2 mEq/L; Start 07/09/16 at 14:30; Stop 07/11/16 at 14:32; Status DC Potassium Bicarb/ Potassium Chloride 50 meq 50 meq UNSCH PRN PO For Potassium 3.3 - 3.5 mEq/L; Start 07/09/16 at 14:30 Potassium Chloride 100 ml @ 25 mls/hr UNSCH PRN IV For Potassium 3.3 - 3.5 mEq /L Last administered on 07/10/16t 06:39; Start 07/09/16 at 14:30; Stop 07/11/16 at 14:32; Status DC Potassium Chloride 100 ml @ 50 mls/hr Q2H PRN IV For Potassium 3.3 - 3.5 mEq/L ; Start 07/09/16 at 14:30; Stop 07/11/16 at 14:32; Status DC Magnesium Sulfate/ Sodium Chloride (Magnesium Sulfate Inj/NS Inj) 100 ml @ 50 mls/hr UNSCH PRN IV For Magnesium 0.9 - 1.1 mg/dL; Start 07/09/16 at 14:30; Stop 07/11/16 at 14:32; Status DC Magnesium Oxide 800 mg 800 mg UNSCH PRN PO For Magnesium 1.2 - 1.6 mg/dL; Start 07/09/16 at 14:30; Stop 07/11/16 at 14:23; Status DC Magnesium Sulfate/ Sodium Chloride (Magnesium Sulfate Inj/NS Inj) 100 ml @ 50 mls/hr UNSCH PRN IV For Magnesium 1.2 - 1.6 mg/dL; Start 07/09/16 at 14:30; Stop 07/11/16 at 14:32; Status DC Potassium Phosphate 2000 mg 2,000 mg Q4H PRN PO For Phosphorus < 2.5 mg/dL; Start 07/09/16 at 14:30; Stop 07/11/16 at 14:32; Status DC Sodium Phosphate/ Sodium Chloride (Sodium Phosphate Inj/NS 250 ml Inj) 250 ml @ 42 mls/hr UNSCH PRN IV For Phosphorus < 2.5 mg/dL; Start 07/09/16 at 14:30; Stop 07/11/16 at 14:32; Status DC Potassium Phosphate 2000 mg 2,000 mg UNSCH PRN PO/TUBE SEE LABEL COMMENTS; Start 07/09/16 at 14:20; Stop 07/11/16 at 14:32; Status DC Potassium Phosphate 30 mmol/ Sodium Chloride 260 ml @ 42 mls/hr UNSCH PRN IV SEE LABEL COMMENTS; Start 07/09/16 at 14:20; Stop 07/11/16 at 14:32; Status DC Piperacillin Sod/ Tazobactam Sod (Zosyn 4.5 Gm Premix) 100 ml @ 200 mls/hr Q6H IV Last administered on 07/11/16 09:44; Start 07/09/16 at 16:00; Stop 07/11/16 at 17:51; Status DC Pneumococcal Polyvalent Vaccine (Pneumovax-23 Inj) 25 mcg ONCE ONCE IM ; Start 07/10/16 at 10:00; Stop 07/10/16 at 10:13; Status DC Iohexol 97 ml 97 ml STK-MED ONCE IV Last administered on 07/09/16 17:23; Start 07/09/16 at 17:23; Stop 07/09/16 at 17:24; Status DC Sodium Chloride 1,000 ml @ 999 mls/hr Q1H1M IV Last administered on 07/09/16 19:46; Start 07/09/16 at 18:45; Stop 07/09/16 at 20:45; Status DC Sodium Chloride 1,000 ml @ 1,000 mls/hr Q1H IV Last administered on 07/09/16 23:27; Start 07/09/16 at 22:27; Stop 07/10/16 at 00:26; Status DC Norepinephrine Bitartrate 250 ml @ 0 mls/hr TITRATE IV Last administered on 07/10 02:59; Start 07/10/16 at 02:00; Stop 07/11/16 at 10:04; Status DC Pharmacy Profile Note 0 ml @ 0 mls/hr UNSCH OTHER ; Start 07/10/16 at 07:30; Stop 07/11/16 at 11:31; Status DC Vancomycin HCl/ Sodium Chloride (Vancomycin Inj/ NS 250 ml Inj) 262.5 ml @ 250 mls/hr Q12H IV Last administered on 07/11/16 09:44; Start 07/10/16 at 10:00; Stop 07/11/16 at 11:31; Status DC Miscellaneous Information SPECIFIC LAB TO BE DRAWN:VANCO TROUGH DATE... ONCE ONCE .XX Last administered on 07/11/16 09:44; Start 07/11/16 at 09:45; Stop 07/11 at 09:46; Status DC Acetaminophen/ Hydrocodone Bitart ([place] 7.5-325 Mg) 1 tab Q4H PRN PO back pain Last administered on 07/14/16 14:43; Start 07/10/16 at 14:30 Acetaminophen (Ofirmev Inj) 1,000 mg ONCE ONCE IV Last administered on 14:52; Start 07/10/16 at 15:00; Stop 07/10/16 at 15:03; Status DC Nystatin (Mycostatin Powder) 1 applic Q8HR TOPICAL Last administered on 13:05; Start 07/10/16 at 15:30 Acetaminophen/ Hydrocodone Bitart ([place] 7.5-325 Mg) 1 tab Q4H PRN PO back pain; Start 07/10/16 at 14:30; Status UNV Acetaminophen (Ofirmev Inj) 1,000 mg ONCE ONCE IV ; Start 07/10/16 at 14:30; Stop 07/10/16 at 14:31; Status UNV Nicotine (Habitrol 21 Mg Patch.24 Hr) 1 patch DAILY T-DERMAL Last administered on 07/14/16 08:09; Start 07/10/16 at 14:30 Miscellaneous Information 1 DAILY T-DERMAL Last administered on 07/14/16 08:09 ; Start 07/11/16 at 09:00 Azithromycin (Zithromax) 500 mg DAILY PO Last administered on 07/13/16 09:34; Start 07/11/16 at 09:00; Stop 07/13/16 at 16:50; Status DC Albuterol/ Ipratropium (Duoneb Neb) 1 ampule Q6HR NEB INH Last administered on 07/14/16 10:00; Start 07/11/16 at 16:00 Methylprednisolone Sodium Succinate (SoluMEDROL INJ) 40 mg Q12HR IV PUSH Last administered on 07/14/16 08:09; Start 07/11/16 at 21:00 Loperamide HCl (Imodium) 2 mg NOW ONCE PO Last administered on 07/11/16 10:20 ; Start 07/11/16 at 10:15; Stop 07/11/16 at 10:16; Status DC Amoxicillin/ Clavulanate Potassium (Augmentin) 500 mg Q8HR PO Last administered on 07/14/16 13:04; Start 07/11/16 at 18:00; Stop 07/22/16 at 17:59 Duloxetine HCl (Cymbalta Dr) 30 mg DAILY PO Last administered on 07/14/16 08:07 ; Start 07/12/16 at 09:00 Iohexol (Omnipaque 350 Inj) 74 ml STK-MED ONCE IV Last administered on 17:11; Start 07/12/16 at 17:11; Stop 07/12/16 at 17:12; Status DC Enalaprilat (Vasotec Inj) 1.25 mg Q6H PRN IV PUSH bp>160/90; Start 07/12/16 at 20:45 Clonidine (Catapres) 0.1 mg Q6H PRN PO bp>160/90 Last administered on 07/13/16 16:28; Start 07/12/16 at 20:45 Enalaprilat (Vasotec Inj) 1.25 mg NOW ONCE IV PUSH Last administered on 21:09; Start 07/12/16 at 21:00; Stop 07/12/16 at 21:01; Status DC Ondansetron HCl (Zofran Inj) 4 mg Q6H PRN IV PUSH NAUSEA OR VOMITING Last administered on 07/13/16 20:50; Start 07/13/16 at 00:00 Furosemide (Lasix Inj) 20 mg ONCE ONCE IV PUSH Last administered on 07/13/16 00:25; Start 07/13/16 at 00:00; Stop 07/13/16 at 00:01; Status DC Furosemide (Lasix Inj) 20 mg BID@18 IV PUSH Last administered on 07/14/16 08 :10; Start 07/13/16 at 11:00 A/P Problem List: (1) Severe sepsis ICD Code: A41.9 Status: Acute (2) Acute respiratory failure with hypoxia ICD Code: J96.01 Status: Acute (3) COPD exacerbation ICD Code: J44.1 Status: Acute (4) HCAP (healthcare-associated pneumonia) ICD Code: J18.9 Status: Acute (5) Lower abdominal pain ICD Code: R10.30 Status: Acute (6) Status post vaginal hysterectomy ICD Code: Z90.710 Status: Acute (7) COPD (chronic obstructive pulmonary disease) ICD Code: J44.9 Status: Acute Assessment and Plan Acute hypoxemic respiratory failure Healthcare associated pneumonia COPD exacerbation -Currently on NC, use BiPAP as needed -Broad-spectrum antibiotics with Zosyn and azithromycin and vancomycin. Vancomycin was discontinued yesterday. Zosyn discontinued today. Patient is on Augmentin and azithromycin by mouth. -Patient currently on cimetidine 40 mg by mouth twice a day. No audible wheezing her today. Will switch to by mouth prednisone. Wheezing improved with Lasix. Repeat chest x-ray done yesterday which showed vascular congestion with cardiomegaly. BNP is 591. Will continue to diuresis with Lasix 20 mg IV twice a day. Strict ins and outs. Monitor creatinine. -DuoNeb every 4 hours scheduled and when necessary -Wean oxygen as tolerated. Patient will need pulmonary function tests as outpatient. -Patient had a walk test done today in which she would need to liters of oxygen at home. Congestive heart failure -Most likely due to assesses fluids given during hospitalization. -Based on clinical exam, chest x-ray, and elevated BNP. -Pending echo report. -Patient currently on Lasix and symptoms improved drastically. Anxiety disorder -Xanax 0.5 mg by mouth twice a day for anxiety -Continue hydrocodone for pain Septic shock -Normal saline IV fluids total 4 L boluses and 84 mL per hour-change IV to KVO -Trend lactic acid - Levophed DCd s/p TVH, BSO, A/P repair and urethropexy on 06/24/16 Possible pelvic abscess -CT abdomen pelvis- showed possible fluid collection posterior to the bladder, possible abscess -Dr. Faust recommends continued medical management, she does not think there is an abscess -Monitor renal function closely. Severe sepsis Healthcare associated pneumonia Possible pelvic abscess and ?post op infection -See management as above. -Infectious disease is following. Clinically she is improving. -Per infectious disease continue with Augmentin until 07/22/16. PROPH: -Bilateral lower extremity SCDs. Lovenox for DVT prophylaxis. IV Protonix 40 mg daily for GI prophylaxis Discharge Planning Patient is medically stable for discharge pending home oxygen. Problem Qualifiers (1) COPD (chronic obstructive pulmonary disease): Qualified Code: J44.9 - Chronic obstructive pulmonary disease, unspecified COPD type Nyiah Louie MD Jul 14, 2016 16:04
--- NOTE | 2016-07-14 17:21 | ECHRPT ---
Indication: pulmonary congestion CONCLUSIONS Normal left ventricular size and wall thickness. The left ventricular systolic function is normal with an estimated ejection fraction in the range of 60-65%. Left ventricular diastolic function parameters are normal. [id number] mitral valve regurgitation.There is mild tricuspid valve regurgitation. BP: 163 / 77 HR: 65 Rhythm: MEASUREMENTS (Male / Female) Normal Values Technical Quality: 2D ECHO LV Diastolic Diameter PLAX 4.4 cm 4.2 - 5.9 / 3.9 - 5.3 cm LV Systolic Diameter PLAX 3.2 cm IVS Diastolic Thickness 1.0 cm 0.6 - 1.0 / 0.6 - 0.9 cm LVPW Diastolic Thickness 0.8 cm 0.6 - 1.0 / 0.6 - 0.9 cm LV Relative Wall Thickness 0.4 RV Internal Dim ED PLAX 1.8 cm M-MODE Aortic Root Diameter MM 3.2 cm LA Systolic Diameter MM 3.9 cm LA Ao Ratio MM 1.2 AV Cusp Separation MM 1.6 cm DOPPLER Mitral E Point Velocity 116.0 cm/s Mitral A Point Velocity 88.8 cm/s Mitral E to A Ratio 1.3 TR Peak Velocity 301.0 cm/s TR Peak Gradient 36.2 mmHg FINDINGS Left Ventricle Normal left ventricular size and wall thickness. The left ventricular systolic function is normal with an estimated ejection fraction in the range of 60-65%. Left ventricular diastolic function parameters are normal. Right Ventricle Normal right ventricular size and systolic function. Left Atrium The left atrial size is normal. Right Atrium The right atrial size is normal. Atrial Septum Normal atrial septal thickness without atrial level shunting by limited color doppler interrogation. Mitral Valve [id number] mitral valve regurgitation. Aortic Valve Trileaflet aortic valve. No aortic valve stenosis or regurgitation. Tricuspid Valve There is mild tricuspid valve regurgitation. Pulmonary Valve No pulmonary valve regurgitation or stenosis. Vessels The inferior vena cava is normal in size. Pericardium No pericardial effusion. Chloe Leung MD, FACC Edited by: [employer] CV Head Butler (Electronically Signed) Final Date:14 July 2016 17:20 Amended: 15 July 2016 13:52 RAIZA
[2016-07-15 00:05] VITALS: BP 138/72; PULSE 63; RESP 16; TEMP 97.6; O2SAT 92
[2016-07-15] MEDS: RESP: ALBUTEROL 2.5 MG/IPRATROPIUM 0.5 MG NEB (SCH) INH ×2 (03:28→09:02)
[2016-07-15] MEDS: CHLORHEXIDINE GLUCONATE 2 % 1 PACK (2 CLOTHS) TOP SCH (04:00)
[2016-07-15] MEDS: AMOXICILLIN/CLAVULANATE K 500 MG TAB PO SCH ×2 (04:52→13:07)
[2016-07-15] MEDS: ACETAMINOPHEN/HYDROcodone 325 MG/7.5 MG TAB PO PRN ×3 (04:53→13:06)
[2016-07-15 05:00] VITALS: BP 137/86; PULSE 60; RESP 16; TEMP 97.6; O2SAT 94
[2016-07-15] MEDS: NYSTATIN 100,000 U/GM PWD 15 GM BTL TOPICAL SCH ×2 (06:00→13:08)
[2016-07-15] MEDS: ALPRAZolam 0.5 MG TAB PO PRN (06:34)
[2016-07-15 08:00] VITALS: BP 146/70; PULSE 60; RESP 20; TEMP 97.9; O2SAT 92
[2016-07-15] MEDS: REMOVE OLD PATCH T-DERMAL SCH (09:00)
[2016-07-15 09:04] VITALS: O2SAT 95
[2016-07-15] MEDS: NICOTINE 21 MG/24 HR PATCH T-DERMAL SCH (09:05)
[2016-07-15] MEDS: DOCUSATE SODIUM 50 MG/SENNA 8.6 MG TAB PO SCH (09:07)
[2016-07-15] MEDS: methylPREDNISolone SOD SUCC 40 MG/1 ML VIAL IV PUSH SCH (09:07)
[2016-07-15] MEDS: DULoxetine HCl DR 30 MG CAP PO SCH (09:07)
[2016-07-15] MEDS: FUROSEMIDE 20 MG/2 ML VIAL IV PUSH SCH (09:07)
[2016-07-15 12:00] VITALS: BP 120/66; PULSE 78; RESP 18; TEMP 98.1; O2SAT 94
[2016-07-15] MEDS: ENOXAPARIN SODIUM 40 MG/0.4 ML SYRINGE SQ SCH (13:08)
== END 2016-07-15 14:09 | disposition home or self-care (01) | DRG 871 ==
LOC: NEPC 08:28 → NEDA 10:38 → HIME 13:45 → N04A 07-11 14:46
PROVIDERS: ADMIT Family Medicine; ATTEND Family Medicine
PROC: 02HV33Z Insertion of Infusion Device into Superior Vena Cava, Percutaneous Approach (ICD-10-PCS; principal; 2016-07-10)
DX: A41.9 Sepsis, unspecified organism (principal); J96.01 Acute respiratory failure with hypoxia; R65.21 Severe sepsis with septic shock; J18.9 Pneumonia, unspecified organism; I50.9 Heart failure, unspecified; J44.0 Chronic obstructive pulmonary disease with (acute) lower respiratory infection; J44.1 Chronic obstructive pulmonary disease with (acute) exacerbation; E86.0 Dehydration; F17.210 Nicotine dependence, cigarettes, uncomplicated; F41.9 Anxiety disorder, unspecified; G43.909 Migraine, unspecified, not intractable, without status migrainosus; E78.5 Hyperlipidemia, unspecified; G89.29 Other chronic pain; M54.9 Dorsalgia, unspecified; E88.09 Other disorders of plasma-protein metabolism, not elsewhere classified; Z90.710 Acquired absence of both cervix and uterus; Z79.891 Long term (current) use of opiate analgesic
CPT/HCPCS: 36556; 36600; 71010; 71250; 72193; 74177; 76937; 80048; 80053; 80202; 81001; 82805; 83605; 83735; 83880; 84100; 85007; 85025; 85027; 87040; 87070; 87086; 87205; 87641; 93306; 94150; 94620; 94640; 94664; 96374; C9113; J0131; J0456; J1650; J1940; J2405; J2543; J2920; J2930; J3370; J3480; J7030; J7050; Q9967